=== PATIENT | female | born 1955 | race Caucasian/White ===

== ENCOUNTER 2017-01-13 07:36 | Day surgery (SDC) | payer BC ==
[2017-01-09 10:21] VITALS: BMI 27.8
[~2017-01-13 07:36] MED LIST: FAMOTIDINE 20 MG/2 ML VIAL IV PRN; LACTATED RINGERS 1,000 ML IV SCH; LIDOCAINE 1% 20 ML VIAL (10MG/ML) FOR IV START INTRADERMA PRN; ONDANSETRON 4 MG/2 ML VIAL IVP PRN; SODIUM CHLORIDE 0.9% 500 ML IV ONE
[2017-01-13] MEDS ORDERED: LACTATED RINGERS 1,000 ML IV ONE (07:49)
[2017-01-13 07:53] VITALS: TEMP 98
[2017-01-13] MEDS ORDERED: PROPOFOL 10 MG/ML 20 ML VIAL IV ONE (08:24)
[2017-01-13] MEDS ORDERED: MIDAZOLAM 2 MG/2 ML VIAL ONE (08:24)
[2017-01-13] MEDS ORDERED: fentaNYL (PF) 50 MCG/ML 2 ML AMP ONE (08:24)
--- NOTE | 2017-01-13 08:52 | P.DS ---
Providers Attending physician: Lynn Jerez Primary care physician: Salvador Vo Plan - Discharge Summary New Discharge Prescriptions: No Action Omeprazole 20 mg PO DAILY Gabapentin [Neurontin] 300 mg PO TID Aspirin EC [Ecotrin] 325 mg PO HS Atenolol [Tenormin] 50 mg PO DAILY Discharge Medication List Aspirin EC [Ecotrin] 325 mg PO HS 07/07/16 [History] Atenolol [Tenormin] 50 mg PO DAILY 07/07/16 [History] Gabapentin [Neurontin] 300 mg PO TID 07/07/16 [History] Omeprazole 20 mg PO DAILY 07/07/16 [History] Activity/Diet/Wound Care/Special Instructions: Diverticular diet Discharge Disposition: HOME SELF-CARE
--- NOTE | 2017-01-13 08:52 | P.OP ---
Date of Procedure: 01/13/17 Preoperative Diagnosis: Change in bowel habits Postoperative Diagnosis: Diverticuli, tortuous sigmoid colon, internal hemorrhoids Procedure(s) Performed: Colonoscopy Implants: Anesthesia: MAC Surgeon: Lynn Jerez Estimated Blood Loss (ml): 0 IV fluids (ml): 200 Pathology: none sent Condition: stable Disposition: PACU Indications for Procedure: Change in bowel habits Operative Findings: Sigmoid diverticuli, internal hemorrhoids, tortuous sigmoid colon Description of Procedure: Patient was taken to the endoscopy suite and following sedation rectal exam was performed. Patient was noted to have adequate sphincter tone no masses. Colonoscope was passed through the anus into the rectum. Was passed to the sigmoid colon up to the splenic flexure. Was passed through the transverse colon hepatic flexure right colon down to the area of the cecum. Approximately 6 minutes were taken to withdraw the scope from the cecum to the rectum. Circumferential observation of the mucosa did not reveal any lesions of concern in the cecum or right colon. No lesions of concern in the transverse colon. As the scope was withdrawn patient was noted to have moderate to extensive sigmoid diverticuli. Scope was brought down to the rectum where it was retroflexed internal hemorrhoids identified. Impression/plan: 1. Internal hemorrhoids 2. Diverticuli Plan: 1. Conservative management 2. Repeat scope 7-10 years
[2017-01-13 08:56] VITALS: PULSE 50
[2017-01-13 09:08] VITALS: BP 137/80; RESP 18
== END 2017-01-13 09:34 | disposition home or self-care (01) ==
LOC: ORWHC2ENDO 07:36
PROVIDERS: ATTEND Surgery
DX: K57.30 Diverticulosis of large intestine without perforation or abscess without bleeding (principal); Z80.0 Family history of malignant neoplasm of digestive organs; K64.8 Other hemorrhoids; Q43.8 Other specified congenital malformations of intestine; I10 Essential (primary) hypertension; F17.200 Nicotine dependence, unspecified, uncomplicated; Z79.82 Long term (current) use of aspirin; Z79.899 Other long term (current) drug therapy
CPT/HCPCS: 45378; J2250; J3010; J2704

== ENCOUNTER → 2017-02-06 | Outpatient (CLI) | payer BC ==
--- NOTE | 2017-02-06 15:20 | US ---
EXAMINATION TYPE: US pelvic complete DATE OF EXAM: 02/06/2017 COMPARISON: NONE CLINICAL HISTORY: R10.2 Pelvic pain. rt adnexal pain, prior tubal TECHNIQUE: Transabdominal (TA) EXAM MEASUREMENTS: Uterus: 5.2 x 2.6 x 4.9 cm Endometrial Stripe: 0.3 cm Right Ovary: 3.1 x 1.8 x 2.9 cm Left Ovary: 2.4 x 1.3 x 2.4 cm 1. Uterus: Anteverted wnl 2. Endometrium: wnl 3. Right Ovary: wnl 4. Left Ovary: wnl 5. Bilateral Adnexa: wnl 6. Posterior cul-de-sac: no free fluid seen IMPRESSION: NORMAL PELVIC ULTRASOUND.
== END | disposition home or self-care (01) ==
LOC: RADUSWWP 14:38
PROVIDERS: ATTEND Family Medicine
DX: R10.2 Pelvic and perineal pain (principal)
CPT/HCPCS: 76856

== ENCOUNTER → 2017-08-14 | Outpatient (CLI) | payer BC ==
[2017-08-14 10:51] LABS: HGB 15.8 gm/dL (11.4-16.0); MCH 29.5 pg (25.0-35.0); MCHC 31.5 g/dL (31.0-37.0); MCV 93.4 fL (80.0-100.0); Mean Platelet Volume 8.5; Platelet Count 221 k/uL (150-450); RBC 5.36 m/uL (3.80-5.40); RDW 14.2 % (11.5-15.5); WBC 12.2 k/uL (3.8-10.6)
[2017-08-14 11:01] LABS: ALT 30 U/L (9-52); AST 20 U/L (14-36); Albumin 4.2 g/dL (3.5-5.0); Alkaline Phosphatase 73 U/L (38-126); Anion Gap 8 mmol/L; Blood Urea Nitrogen 24 mg/dL (7-17); Calcium 9.8 mg/dL (8.4-10.2); Carbon Dioxide 30 mmol/L (22-30); Chloride 103 mmol/L (98-107); Cholesterol 234 mg/dL (<200); Glucose 104 mg/dL (74-99); HDL Cholesterol 61 mg/dL (40-60); LDL Cholesterol,Calculated 152 mg/dL (0-99); Sodium 141 mmol/L (137-145); Total Bilirubin 0.8 mg/dL (0.2-1.3); Total Protein 7.1 g/dL (6.3-8.2); Triglycerides 104 mg/dL (<150)
== END | disposition home or self-care (01) ==
LOC: LABWHC1 10:20
PROVIDERS: ATTEND Internal Medicine Clinical Cardiac Electrophysiology
DX: E78.5 Hyperlipidemia, unspecified (principal); I10 Essential (primary) hypertension; I48.91 Unspecified atrial fibrillation
CPT/HCPCS: 36415; 80053; 80061; 84443; 85027

== ENCOUNTER → 2018-05-31 | Outpatient (CLI) | payer BC ==
--- NOTE | 2018-05-31 08:07 | MR ---
EXAMINATION TYPE: MR cervical spine wo con DATE OF EXAM: 05/31/2018 COMPARISON: None HISTORY: Neck pain TECHNIQUE: Multiplanar, multisequence images of the cervical spine were acquired. FINDINGS: Incidental note is made of a partially empty sella turcica that is partially visualized on the sagittal images. There is straightening of the usual cervical lordosis with very mild retrolisthe sis of C5 on C6. Multilevel disc desiccation is seen. Cervical cord maintains a normal signal. Bone m arrow is within normal limits. C2-C3: Small posterior central disc ossify complex without spinal canal stenosis nor neural foraminal narrowing. C3-C4: Disc desiccation and a small central disc osteophyte complex are seen without spinal canal henrietta nosis nor neural foraminal narrowing. Mild uncovertebral hypertrophy is also seen at this level. C4-C5: There is left greater than right uncovertebral hypertrophy creating mild left neural foraminal narrowing as well as a small central disc osteophyte complex narrowing the ventral subarachnoid spac e and impressing upon the ventral thecal cord creating very mild spinal canal stenosis. C5-C6: There is a broad-based disc bulge and mild uncovertebral hypertrophy creating mild spinal toribio l stenosis and mild neural foraminal narrowing. C6-C7: There is a left foraminal disc herniation creating severe left neural foraminal narrowing and impinging on the exiting nerve root with effacement of the left lateral recess. This also creates mil d left-sided spinal canal stenosis. Right neuroforamen is patent. C7-T1: No evidence for degenerative disc disease. No disc bulge/herniation or protrusion. No Canal stenosis. Foramina are patent bilaterally. IMPRESSION: 1. Left foraminal disc herniation at C6-C7 creating severe left neural foraminal narrowing and mild l eft-sided spinal canal stenosis. 2. Straightening of the usual cervical lordosis and multilevel degenerative disc disease of the cervi ramona spine greatest at C4-C7.
== END | disposition home or self-care (01) ==
LOC: RADMRIMAIN 06:31
PROVIDERS: ATTEND Internal Medicine Rheumatology
DX: M48.02 Spinal stenosis, cervical region (principal); M99.71 Connective tissue and disc stenosis of intervertebral foramina of cervical region; M50.121 Cervical disc disorder at C4-C5 level with radiculopathy
CPT/HCPCS: 72141

== ENCOUNTER → 2018-07-28 | Outpatient (CLI) | payer BC ==
--- NOTE | 2018-07-30 09:31 | MM ---
Reason for exam: screening (asymptomatic). Last mammogram was performed 2 years and 6 months ago. History: Patient is postmenopausal. Took estrogen for 3 months. Took progesterone for 3 months. Physical Findings: A clinical breast exam by your physician is recommended on an annual basis and results should be correlated with mammographic findings. MG Screening Mammo w CAD Bilateral CC and MLO view(s) were taken. Prior study comparison: January 14, 2016, bilateral MG screening mammo w CAD. November 06, 2014, bilateral MG screening mammo w CAD. There are scattered fibroglandular densities. No significant changes when compared with prior studies. ASSESSMENT: Negative, BI-RAD 1 RECOMMENDATION: Routine screening mammogram of both breasts in 1 year.
== END ==
LOC: RADMAMWWP 09:01
PROVIDERS: ATTEND Obstetrics & Gynecology
DX: Z12.31 Encounter for screening mammogram for malignant neoplasm of breast (principal)
CPT/HCPCS: 77067

== ENCOUNTER → 2018-10-26 | Outpatient (CLI) | payer OTHER ==
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
== END | disposition home or self-care (01) ==
LOC: RADCTMAIN 15:17
PROVIDERS: ATTEND Emergency Medicine
DX: S00.83XA Contusion of other part of head, initial encounter (principal); G44.321 Chronic post-traumatic headache, intractable
CPT/HCPCS: 70450; 70486

== ENCOUNTER → 2018-10-27 | Outpatient (CLI) | payer OTHER ==
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
== END | disposition home or self-care (01) ==
LOC: RADMRIMAIN 15:06
PROVIDERS: ATTEND Emergency Medicine
DX: S00.83XA Contusion of other part of head, initial encounter (principal); R90.89 Other abnormal findings on diagnostic imaging of central nervous system; G31.1 Senile degeneration of brain, not elsewhere classified; G44.321 Chronic post-traumatic headache, intractable
CPT/HCPCS: 70551

== ENCOUNTER 2018-10-28 11:51 | Emergency (ER) | payer OTHER ==
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
[2018-10-28 15:08] VITALS: BP 120/77; PULSE 64; RESP 16; TEMP 98.1
== END 2018-10-28 15:07 | disposition home or self-care (01) ==
LOC: EC 11:51
DX: S06.0X0A Concussion without loss of consciousness, initial encounter (principal); G93.89 Other specified disorders of brain; I10 Essential (primary) hypertension; F17.200 Nicotine dependence, unspecified, uncomplicated; Z79.01 Long term (current) use of anticoagulants; Z79.899 Other long term (current) drug therapy; Y04.8XXA Assault by other bodily force, initial encounter; Y92.69 Other specified industrial and construction area as the place of occurrence of the external cause; Y99.0 Civilian activity done for income or pay
CPT/HCPCS: 70450; 99284

== ENCOUNTER → 2019-02-16 | Outpatient (CLI) | payer BC, OTHER ==
--- NOTE | 2019-02-16 20:56 | CONS ---
CONSULTATION DATE OF SERVICE: 02/16/2019 This patient is a 63-year-old lady who has been evaluated in the sleep center for possible obstructive sleep apnea-hypopnea syndrome. HISTORY OF PRESENT ILLNESS/SLEEP-WAKE EVALUATION: Patient was diagnosed with obstructive sleep apnea about 15 years ago in another institution and was started on treatment with CPAP, but she had difficulties with CPAP and had to stop it. At present her sleep schedule on working days is from 10 p.m. to 6:45 a.m., on weekends from midnight until 9 a.m. Sometimes she has problem with falling asleep. She reads in bedroom and sleeps on the side position. She snores, wakes up from sleep 3 times with nocturia, sometimes has difficulties falling asleep again. In the morning the patient wakes up tired, has difficulties paying attention, falling asleep, worrying about her sleep, has problems with memory and concentration. She is taking one nap a day, usually from about 1-3 p.m. [place] Sleepiness Scale is significantly increased at 16. PAST MEDICAL HISTORY: Positive for hypertension, atrial fibrillation. PAST SURGICAL HISTORY: 1. Tonsillectomy. 2. Cholecystectomy. 3. Tubal ligation. MEDICATIONS: 1. Atenolol. 2. Omeprazole. 3. Citalopram. 4. Losartan. 5. Eliquis. 6. Gabapentin. SOCIAL HISTORY: Positive for smoking about half pack a day for 20 years. Patient continues smoking. Alcohol consumption: none. FAMILY HISTORY: Heart problems, cancer and diabetes. REVIEW OF SYSTEMS: Multiple awakenings from sleep, sleepiness during the day. PHYSICAL EXAMINATION: GENERAL: A pleasant lady without distress. VITAL SIGNS: BP 127/80, HR 62, RR 18, height 5 feet 3 inches, weight 181 pounds, body mass index 32.0, temperature 98.4, oxygen saturation at room air 97%. HEENT: PERRLA, EOMI. Evaluation of oropharynx showed tongue protrudes midline. Extremely low position of soft palate. Mallampati IV. Restriction of nasal breathing, more on the left side. NECK: Supple. No JVD. Thyroid is not palpable. Neck measures 15-1/2 inches in circumference. LUNGS: Clear to percussion and to auscultation. Good air exchange. No wheezing or rhonchi. HEART: S1, S2 regular. No murmurs, gallops or rubs. ABDOMEN: Soft and nontender. Bowel sounds are present. No organomegaly. EXTREMITIES: No clubbing or cyanosis. SUPERVISOR LATHING: Awake, alert, and oriented X3. Cranial nerves 2 to 7 intact. There is no fasciculation or atrophy. noted. No focal deficits observed. IMPRESSION: 1. Snoring, multiple awakenings from sleep with nocturia, sleepiness, obesity, history of obstructive sleep apnea in the past; obstructive sleep apnea-hypopnea syndrome. 2. Mild obesity; body mass index 32.0. 3. Hypertension. 4. History of atrial fibrillation. 5. Status post tonsillectomy. 6. Status post cholecystectomy. 7. Status post tubal ligation. PLAN: 1. Polysomnography for evaluation of patient's breathing during sleep. 2. CPAP/BiPAP titration if sleep study confirms obstructive sleep apnea-hypopnea syndrome. 3. Preferable position during sleep on the side. 4. No driving if patient feels any sleepiness. 5. I will see patient for follow up visit to explain results of testing and following plan. Thank you very much for referring this patient for consultation. Sincerely, Refugio Mckay MD, PhD, FAASM Diplomat of [employer] [employer] [employer] Cargo Services Coordinator of [facility] [place] [email or web address] / VANGIEN: [id number] /
== END | disposition home or self-care (01) ==
LOC: SLEEP 14:39
PROVIDERS: ATTEND Internal Medicine
DX: G47.33 Obstructive sleep apnea (adult) (pediatric) (principal); E66.9 Obesity, unspecified; I10 Essential (primary) hypertension; I48.91 Unspecified atrial fibrillation; F17.210 Nicotine dependence, cigarettes, uncomplicated; Z68.32 Body mass index [BMI] 32.0-32.9, adult; Z90.09 Acquired absence of other part of head and neck; Z90.49 Acquired absence of other specified parts of digestive tract; Z98.51 Tubal ligation status; Z79.01 Long term (current) use of anticoagulants; Z79.899 Other long term (current) drug therapy
CPT/HCPCS: 99211

== ENCOUNTER → 2019-05-04 | Outpatient (CLI) | payer BC ==
--- NOTE | 2019-05-04 14:38 | PN ---
PROGRESS NOTE DATE OF SERVICE: 05/04/2019 A 63-year-old lady who has been followed in the Sleep Center for treatment of obstructive sleep apnea-hypopnea syndrome. Recently patient had home sleep apnea test which showed apnea-hypopnea index 10.6 with oxygen desaturation to 79%, and I discussed results of the sleep study with the patient. Subsequently, she was started on treatment with CPAP, today is her first visit after she started using CPAP equipment. Patient feels better with the CPAP. She sleeps better and feel better during the day. [place] Sleepiness Scale today although still increased to 16. I checked her CPAP unit, range of the pressure 5-15, average pressure of 14.3 cm of water. Usage is 30/30 nights for more than 4 hours with average usage 6.8 hours per night. Leak is 8 L/minute, which is acceptable. Apnea-hypopnea index is 2.5, which is in normal range. MEDICATIONS: Atenolol, omeprazole, citalopram, losartan, Eliquis, gabapentin. PHYSICAL EXAM: Patient in no distress, BP 127/76, HR 60, RR 16, weight 185.0, temperature 98.8, oxygen saturation at room air 97%. OROPHARYNX: Low position to soft palate, Mallampati 4. Neck Supple, no JVD. Thyroid is not palpable. LUNGS Clear to percussion and to auscultation. Good air exchange. No wheezing or rhonchi. HEART S1, S2 regular. No murmurs, gallops, or rubs. ABDOMEN Soft and nontender. Bowel sounds are present. No organomegaly appreciated. EXTREMITIES No clubbing or cyanosis. SENIOR INTEGRATION ARCHITECT Awake, alert, and oriented X3. Cranial nerves 2 to 7 intact. There is no fasciculation or atrophy. noted. No focal deficits observed. IMPRESSION: 1. Obstructive sleep apnea-hypopnea syndrome on control with CPAP. Patient demonstrated 100% compliance with treatment, benefitting from treatment. 2. Hypertension. 3. History of atrial fibrillation. 4. Mild obesity. 5. Status post tonsillectomy. 6. Status post cholecystectomy. 7. Status post tubal ligation. PLAN: 1. Patient will continue to use CPAP equipment every night for the whole night. 2. Sleep hygiene with time in bed for at least 7-1/2 to 8 hours. 3. Precautions related to driving. No driving if any sleepiness. 4. I will maintain all necessary prescriptions for CPAP supplies including mask, tube, filters. Thank you very much for allowing me to participate in the management of your patient. Sincerely, Refugio Mckay MD, PhD, FAASM Diplomat of [place] [employer] [place] [employer] Tail Board Worker of [facility] [place] [email or web address] / STUART: [id number] /
== END | disposition home or self-care (01) ==
LOC: SLEEP 13:05
PROVIDERS: ATTEND Internal Medicine
DX: G47.33 Obstructive sleep apnea (adult) (pediatric) (principal); I10 Essential (primary) hypertension; E66.9 Obesity, unspecified; Z86.79 Personal history of other diseases of the circulatory system; Z98.51 Tubal ligation status; Z90.49 Acquired absence of other specified parts of digestive tract; Z90.89 Acquired absence of other organs; Z99.89 Dependence on other enabling machines and devices; Z79.01 Long term (current) use of anticoagulants; Z79.899 Other long term (current) drug therapy

== ENCOUNTER → 2019-08-19 | Outpatient (CLI) | payer BC ==
--- NOTE | 2019-08-19 15:36 | US ---
EXAMINATION TYPE: US kidneys/renal and bladder DATE OF EXAM: 08/19/2019 COMPARISON: NONE CLINICAL HISTORY: N39.0 urinary tract infection. UTI EXAM MEASUREMENTS: Right Kidney: 9.8 x 4.5 x 40. cm Left Kidney: 10.7 x 5.7 x 3.7 cm Right Kidney: No hydronephrosis or masses seen Left Kidney: No hydronephrosis or masses seen Bladder: Very minimal internal debris Bilateral Jets seen: No just left jet. There is no evidence for hydronephrosis at this point in time. No nephrolithiasis is seen. No shorty s are identified. IMPRESSION: 1. Minimal internal debris dependently within the urinary bladder, likely related to the patient's kn own urinary tract infection. 2. No hydronephrosis or nephrolithiasis of either kidney
== END | disposition home or self-care (01) ==
LOC: RADUSWWP 14:55
PROVIDERS: ATTEND Family Medicine
DX: N39.0 Urinary tract infection, site not specified (principal)
CPT/HCPCS: 76770

== ENCOUNTER → 2020-02-24 | Outpatient (CLI) | payer BC ==
--- NOTE | 2020-02-24 13:22 | US ---
EXAMINATION TYPE: US kidneys/renal and bladder DATE OF EXAM: 02/24/2020 COMPARISON: NONE CLINICAL HISTORY: 64-year-old female N39.0 Urinary tract infection, site not specified. Recurrent UTI TECHNIQUE: Multiple sonographic images of the kidneys and bladder are obtained. FINDINGS: EXAM MEASUREMENTS: Right Kidney: 10.4 x 4.7 x 4.4 cm Left Kidney: 10.3 x 5.5 x 5.0 cm Right Kidney: cystic area mid = 0.9cm . No hydronephrosis. Left Kidney: no evidence of hydronephrosis Bladder: appears wnl Bilateral Jets seen: yes IMPRESSION: No hydronephrosis on either side. Benign 9 mm cortical cyst on the right.
== END | disposition home or self-care (01) ==
LOC: RADUSWWP 12:21
PROVIDERS: ATTEND Urology
DX: N28.1 Cyst of kidney, acquired (principal)
CPT/HCPCS: 76770

== ENCOUNTER → 2020-05-09 | Outpatient (CLI) | payer BC ==
--- NOTE | 2020-05-10 09:20 | MM ---
Reason for exam: screening (asymptomatic). Last mammogram was performed 1 year and 9 months ago. History: Patient is postmenopausal. Took estrogen for 3 months. Took progesterone for 3 months. Physical Findings: A clinical breast exam by your physician is recommended on an annual basis and results should be correlated with mammographic findings. MG 3D Screening Mammo W/Cad Bilateral CC and MLO view(s) were taken. Prior study comparison: July 28, 2018, bilateral MG screening mammo w CAD. January 14, 2016, bilateral MG screening mammo w CAD. The breast tissue is heterogeneously dense. This may lower the sensitivity of mammography. There are benign appearing round calcifications bilaterally. Asymmetric breast tissue left breast, stable, anterior aspect. There is no discrete abnormality. ASSESSMENT: Negative, BI-RAD 1 RECOMMENDATION: Routine screening mammogram of both breasts in 1 year.
== END | disposition home or self-care (01) ==
LOC: RADMAMWWP 10:11
PROVIDERS: ATTEND Obstetrics & Gynecology
DX: Z12.31 Encounter for screening mammogram for malignant neoplasm of breast (principal)
CPT/HCPCS: 77063; 77067

== ENCOUNTER → 2020-09-27 | Outpatient (CLI) | payer BC ==
[2020-09-27 09:56] LABS: HCT 40.9 % (34.0-46.0); HGB 13.7 gm/dL (11.4-16.0); MCH 29.7 pg (25.0-35.0); MCHC 33.6 g/dL (31.0-37.0); MCV 88.5 fL (80.0-100.0); Mean Platelet Volume 8.8; Platelet Count 173 k/uL (150-450); RBC 4.62 m/uL (3.80-5.40); RDW 12.7 % (11.5-15.5); WBC 7.2 k/uL (3.8-10.6)
[2020-09-27 10:07] LABS: Appearance,Urine Clear (Clear); Bacteria,Urine Rare /hpf; Bilirubin,Urine Negative (Negative); Blood,Urine Trace (Negative); Color,Urine Yellow; Glucose,Urine (UA) Negative (Negative); Ketones,Urine Negative (Negative); Leukocyte Esterase,Urine Moderate (Negative); Mucus,Urine Rare /hpf; Nitrite,Urine Negative (Negative); PH, Urine 5.5 (5.0-8.0); Protein,Urine Negative (Negative); RBC,Urine 2 /hpf (0-5); Specific Gravity,Urine 1.015 (1.001-1.035); Squamous Epithelial Cell,Urine 3 /hpf (0-4); Urobilinogen,Urine <2.0 mg/dL (<2.0); WBC,Urine 19 /hpf (0-5)
[2020-09-27 10:09] LABS: Calcium 9.3 mg/dL (8.4-10.2); Magnesium 1.8 mg/dL (1.6-2.3); Potassium 4.2 mmol/L (3.5-5.1); Total Bilirubin 0.7 mg/dL (0.2-1.3); Total Protein 6.4 g/dL (6.3-8.2)
[2020-09-27 10:21] LABS: Partial Thromboplastin Time 26.8 sec (22.0-30.0); Prothrombin Time 10.9 sec (9.0-12.0)
--- NOTE | 2020-09-27 10:53 | P.PN ---
Progress Note - Text Progress Note Date: 09/27/20 5 meter walk test completed without incident: #1 3.96 sec #2 4.3 sec #3 3.33 sec
[2020-09-27 12:07] LABS: T4, Free (Free Thyroxine) 0.59 ng/dL (0.78-2.19)
--- NOTE | 2020-09-27 13:05 | XR ---
EXAMINATION TYPE: XR chest 2V DATE OF EXAM: 09/27/2020 COMPARISON: NONE TECHNIQUE: PA and lateral views submitted. HISTORY: Postop FINDINGS: The lungs are clear and there is no pneumothorax, pleural effusion, or focal pneumonia. Heart size normal. No overt failure. IMPRESSION: 1. No acute process.
[2020-09-28 00:32] LABS: Hepatitis B Core IgM Non-Reactive (Non-Reactive); Hepatitis B Surface Antigen Non-Reactive (Non-Reactive); Hepatitis C IgG Antibody Non-Reactive (Non-Reactive)
[2020-09-28 01:14] LABS: Hepatitis A Antibody IgM Non-Reactive (Non-Reactive)
--- NOTE | 2020-10-03 10:30 | P.ARTDOP ---
Arterial Doppler LOWER EXTREMITY ARTERIAL DOPPLER: DATE OF SERVICE: 09/27/2020 Reason for study: Preop CABG. Doppler waveforms: Multiphasic bilaterally throughout. Pulse volume recording: []. Pressure gradients: None. Ankle-brachial indices: Greater than 1 bilaterally. Toe brachial indices: To waveforms show flat line. I am doubtful as to this waveform being accurate. Impression: Suspect normal study..
--- NOTE | 2020-10-03 10:35 | P.ARTDOP ---
Arterial Doppler Bilateral radial artery study. Date of study: 09/27/2020 Reason for study: Preop CABG Findings: Doppler assessment shows no significant right to left or segmental pressure gradient. Digital plethysmography with radial artery compression suggests a significant pressure change of 41 mmHg with the left first digit but none on the second digit. No significant changes on the right. The right radial measures proximally2.3 x 1.6 mm, mid 1.9 x 1.3 mm, distally 2.8 x 2.1 mm. Proximally1.7 by 1.9 mm, mid 1.9 x 1.8 mm, distally 2.0 x 1.3 mm. Impression: Both radials have some measurement suggesting that they are bit small for use as conduit. The left radial also has a marginal but significant pressure gradient with radial artery compression. Clinical correlation recommended, but alternate conduit would be considered if available.
--- NOTE | 2020-10-03 10:37 | P.VSCSTY ---
Greater Saphenous Vein Mapping This is bilateral lower extremity greater saphenous vein mapping. Date of service: 09/28/2020 Vein quality and ultrasound appearance: We see no intraluminal thrombus or significant wall changes. Vein size groin right : 6.7 x 4.3 groin left: 8.4 x 8.5 High thigh right: 4.5 x 4.3 high thigh left: 3.5 x 3.9 Mid thigh right: 3.6 x 2.7 mid thigh left: 3.6 x 3.6 Above-knee right: 2.5 x 2.3 above-knee left: 3.4 x 2.4 Below knee right: 4.3 x 2.0 below-knee left: 4.3 x 2.6 Mid calf right: 3.5 x 2.0 mid calf left: 3.5 x 2.9 Ankle right: 2.9 x 2.0 ankle left: 3.0 x 2.3 Impression: Usable bilateral greater saphenous vein is suggested..
== END | disposition home or self-care (01) ==
LOC: LABPAT 08:21
PROVIDERS: ATTEND Thoracic Surgery (Cardiothoracic Vascular Surgery)
DX: U07.1 COVID-19 (principal); Z20.822 Contact with and (suspected) exposure to COVID-19
CPT/HCPCS: 84439; 80061; 80053; 80074; 84443; 83735; 85027; 85610; 85730; 81001; 87070; 87086; 83036; 71046; 93930; 93922; 93005; 36415; U0003; C9803; U0005; 93923; 93970

== ENCOUNTER 2020-10-04 05:38 | Inpatient (IN) | payer BC ==
[~2020-10-04 05:38] MED LIST changes: +ALBUMIN HUMAN 25% 50 ML IV ONE; +ALBUMIN HUMAN 5% 500 ML IVPB ONE; +ASPIRIN 325 MG TAB PO ONE; +ATORVASTATIN 10 MG TAB PO ONE; +CALCIUM CHLORIDE 100 MG/ML 10 ML SYRINGE IV ONE; +CARDIOPLEGIC SOLN (K+ 16 MEQ/L 1,000 ML with SODIUM BICARB (1 MEQ/ML) 20 ML, LIDOCAINE ... PERFUSION ONE; +CHLORHEXIDINE GLUCONATE 15 ML CUP MUCOUS MEM ONE; +CLEVIDIPINE BUTYRATE 25 MG in EMPTY BAG 1 BAG IV ONE; +DILTIAZEM 125 MG in SODIUM CHLORIDE 0.9% 100 ML IV ONE; -FAMOTIDINE 20 MG/2 ML VIAL IV PRN; +HEPARIN SODIUM 1,000 UN/ML (10ML VL) IV ONE; +HEPARIN SODIUM,PORCINE 5,000 UNIT in SODIUM CHLORIDE 0.9% 500 ML 500 ML IV ONE; +INSULIN REGULAR 100 UNIT in SODIUM CHLORIDE 0.9% 100 ML IV ONE; +LACTATED RINGERS 1,000 ML IV ONE; -LACTATED RINGERS 1,000 ML IV SCH; -LIDOCAINE 1% 20 ML VIAL (10MG/ML) FOR IV START INTRADERMA PRN; +MAGNESIUM SULFATE MG 500 MG/ML IV ONE; +MANNITOL 25% 12.5 GM/50 ML VIAL IV ONE; +METOPROLOL TARTRATE 12.5 MG TAB PO ONE; +NITROGLYCERIN SL TABS 0.4 MG TAB SUBLINGUAL ONE; +NITROGLYCERIN-D5W PMX 25 MG/250 ML BTL IV ONE; +NITROGLYCERIN-D5W PMX 50 MG in DEXTROSE/WATER 1 250ML.BAG IV ONE; +NOREPINEPHRINE 4 MG in SODIUM CHLORIDE 0.9% 250 ML IV ONE; -ONDANSETRON 4 MG/2 ML VIAL IVP PRN; +PHENYLEPHRINE 10 MG/ML VIAL IV ONE; +PHENYLEPHRINE 40 MG in SODIUM CHLORIDE 0.9% 250 ML IV ONE; +PROTAMINE SULFATE 10 MG/ML 25 ML VIAL IV ONE; +PROTAMINE SULFATE 250 MG in EMPTY BAG 1 BAG IV ONE; +SODIUM BICARB 8.4% 50 ML SYR (1 MEQ/ML) IV ONE; +SODIUM CHLORIDE 0.9% 1,000 ML IV ONE; -SODIUM CHLORIDE 0.9% 500 ML IV ONE; +TRANEXAMIC ACID 2,000 MG in SODIUM CHLORIDE 0.9% 80 ML IV ONE; +ceFAZolin 1,000 MG in SODIUM CHLORIDE 0.9% IRRIGATIO 1,000 ML IRRIGATION ONE; +propofoL 1,000 MG/100 ML VIAL IV ONE
[2020-10-04 06:08] LABS: Glucose,Whole Blood 115 mg/dL (75-99)
[2020-10-04] MEDS ORDERED: LIDOCAINE 1% (10MG/ML) FOR IV START INTRADERMA PRN (07:00)
[2020-10-04] MEDS ORDERED: LACTATED RINGERS 1,000 ML IV SCH (07:00)
[2020-10-04] MEDS ORDERED: HYDROmorphone 0.5 MG/0.5 ML SYRINGE IVP PRN (07:00)
[2020-10-04] MEDS ORDERED: fentaNYL (PF) 50 MCG/ML 50 ML VIAL ONE (07:42)
[2020-10-04] MEDS ORDERED: CALCIUM CHLORIDE 100 MG/ML 10 ML SYRINGE ONE (07:42)
[2020-10-04] MEDS ORDERED: NITROGLYCERIN-D5W PMX 50 MG/250 ML BOTTLE IV ONE (07:42)
[2020-10-04] MEDS ORDERED: ALBUMIN HUMAN 5% (12.5gm) 250 ML BOTTLE IVPB ONE (07:42)
[2020-10-04] MEDS ORDERED: PROPOFOL 10 MG/ML 20 ML VIAL IV ONE (07:42)
[2020-10-04] MEDS ORDERED: HEPARIN SODIUM,PORCINE 10,000 UNIT/ML 1 ML VIAL ONE (07:42)
[2020-10-04] MEDS ORDERED: POTASSIUM CHLORIDE OPEN HEART 20 MEQ/50 ML BAG IVPB ONE (07:42)
[2020-10-04] MEDS ORDERED: AMIODARONE 50 MG/ML 3 ML VIAL IV ONE (07:42)
[2020-10-04] MEDS ORDERED: MIDAZOLAM 2 MG/2 ML VIAL ONE (07:42)
[2020-10-04] MEDS ORDERED: SODIUM CHLORIDE 0.9% 100 ML BAG ONE (07:42)
[2020-10-04] MEDS ORDERED: SODIUM CHLORIDE 0.9% IRRIG 1,000 ML BTL IRRIGATION ONE (07:42)
[2020-10-04] MEDS ORDERED: fentaNYL (PF) 50 MCG/ML 2 ML AMP ONE (07:42)
[2020-10-04] MEDS ORDERED: INSULIN REGULAR 100 UNIT/ML VIAL ONE (07:42)
[2020-10-04] MEDS ORDERED: VECURONIUM 10 MG VIAL IV ONE (07:42)
[2020-10-04] MEDS ORDERED: ceFAZolin 1,000 MG VIAL ONE (07:42)
[2020-10-04] MEDS ORDERED: SUCCINYLCHOLINE CHLORIDE 100 MG/5 ML SYR IV ONE (07:42)
[2020-10-04] MEDS ORDERED: PROTAMINE SULFATE 10 MG/ML 5 ML VIAL IV ONE (07:42)
[2020-10-04] MEDS ORDERED: PAPAVERINE 30 MG/ML 2 ML VIAL IV STA (08:11)
[2020-10-04] MEDS ORDERED: PAPAVERINE 360 MG in SODIUM CHLORIDE 0.9% 90 ML IV STA (08:15)
[2020-10-04 08:38] LABS: ABG Glucose Whole Blood 126 mg/dL (75-99); ABG HCO3 25 mmol/L (21-25); ABG Hematocrit 38 % (34.0-46.0); ABG Ionized Calcium 4.5 mg/dL (4.5-5.3); ABG Lactic Acid Whole Blood 0.9 mmol/L (0.5-1.6); ABG Oxygen Saturation 99.7 % (94-97); ABG PCO2 45 mmHg (35-45); ABG PH 7.35 (7.35-7.45); ABG PO2 211 mmHg (83-108); ABG Potassium Whole Blood 4.4 mmol/L (3.4-4.5); ABG Sodium Whole Blood 138 mmol/L (135-146); ABG TCO2 26 mmol/L (19-24)
[2020-10-04 09:54] LABS: ABG Base Excess -1.1 mmol/L; ABG Glucose Whole Blood 134 mg/dL (75-99); ABG HCO3 24 mmol/L (21-25); ABG Hematocrit 35 % (34.0-46.0); ABG Ionized Calcium 4.5 mg/dL (4.5-5.3); ABG Lactic Acid Whole Blood 1.2 mmol/L (0.5-1.6); ABG Oxygen Saturation 99.7 % (94-97); ABG PCO2 42 mmHg (35-45); ABG PH 7.37 (7.35-7.45); ABG PO2 201 mmHg (83-108); ABG Potassium Whole Blood 4.2 mmol/L (3.4-4.5); ABG Sodium Whole Blood 138 mmol/L (135-146); ABG TCO2 26 mmol/L (19-24)
[2020-10-04 10:33] LABS: ABG Base Excess 0.1 mmol/L; ABG Glucose Whole Blood 145 mg/dL (75-99); ABG HCO3 25 mmol/L (21-25); ABG Hematocrit 36 % (34.0-46.0); ABG Ionized Calcium 4.5 mg/dL (4.5-5.3); ABG Lactic Acid Whole Blood 0.9 mmol/L (0.5-1.6); ABG Oxygen Saturation 99.8 % (94-97); ABG PCO2 39 mmHg (35-45); ABG PH 7.41 (7.35-7.45); ABG PO2 202 mmHg (83-108); ABG Sodium Whole Blood 138 mmol/L (135-146); ABG TCO2 26 mmol/L (19-24)
[2020-10-04 11:20] LABS: ABG Base Excess -0.7 mmol/L; ABG Glucose Whole Blood 159 mg/dL (75-99); ABG HCO3 24 mmol/L (21-25); ABG Hematocrit 36 % (34.0-46.0); ABG Ionized Calcium 4.4 mg/dL (4.5-5.3); ABG Lactic Acid Whole Blood 0.7 mmol/L (0.5-1.6); ABG Oxygen Saturation 99.7 % (94-97); ABG PCO2 40 mmHg (35-45); ABG PH 7.39 (7.35-7.45); ABG PO2 173 mmHg (83-108); ABG Potassium Whole Blood 3.8 mmol/L (3.4-4.5); ABG Sodium Whole Blood 138 mmol/L (135-146); ABG TCO2 25 mmol/L (19-24)
[2020-10-04 11:54] LABS: ABG Base Excess -1.9 mmol/L; ABG Glucose Whole Blood 164 mg/dL (75-99); ABG HCO3 24 mmol/L (21-25); ABG Hematocrit 35 % (34.0-46.0); ABG Ionized Calcium 4.4 mg/dL (4.5-5.3); ABG Oxygen Saturation 99.8 % (94-97); ABG PCO2 42 mmHg (35-45); ABG PH 7.36 (7.35-7.45); ABG PO2 175 mmHg (83-108); ABG Potassium Whole Blood 3.9 mmol/L (3.4-4.5); ABG Sodium Whole Blood 137 mmol/L (135-146); ABG TCO2 25 mmol/L (19-24)
[2020-10-04] MEDS ORDERED: METOCLOPRAMIDE 5 MG/ML 2 ML VIAL IVP PRN (12:57)
[2020-10-04] MEDS ORDERED: ONDANSETRON 4 MG/2 ML VIAL IVP PRN (12:57)
[2020-10-04] MEDS ORDERED: ALBUMIN HUMAN 5% 250 ML in EMPTY BAG 1 BAG IVPB PRN (12:57)
[2020-10-04] MEDS ORDERED: AMIODARONE 450 MG in DEXTROSE 5% IN WATER 250 ML IV PRN ×2 (12:57)
[2020-10-04] MEDS ORDERED: Phosphorus Replacement Protoco 1 EACH MISC MISCELLANE PRN (12:57)
[2020-10-04] MEDS ORDERED: DEXTROSE 5% IN WATER 100 ML with AMIODARONE 150 MG IV PRN (12:57)
[2020-10-04] MEDS ORDERED: Magnesium Replacement Protocol 1 EACH MISC MISCELLANE PRN (12:57)
[2020-10-04] MEDS ORDERED: BENZOCAINE/MENTHOL LOZENG 1 EACH LOZENGE MUCOUS MEM PRN (12:57)
[2020-10-04] MEDS ORDERED: NITROGLYCERIN-D5W PMX 50 MG in DEXTROSE/WATER 1 250ML.BAG IV SCH (12:57)
[2020-10-04] MEDS ORDERED: CALCIUM GLUCONATE 2 GM in SODIUM CHLORIDE 0.9% 100 ML IVPB PRN (12:57)
[2020-10-04] MEDS ORDERED: IPRATROPIUM-ALBUTEROL 3 ML NEB INHALATION PRN (12:57)
[2020-10-04] MEDS ORDERED: Potassium Replacement Protocol 1 EACH MISC MISCELLANE PRN (12:57)
[2020-10-04] MEDS ORDERED: AMIODARONE 360 MG in DEXTROSE 5% IN WATER 200 ML IV PRN ×2 (12:57)
[2020-10-04 13:45] LABS: Glucose,Whole Blood 146 mg/dL (75-99)
--- NOTE | 2020-10-04 13:57 | XR ---
EXAMINATION TYPE: XR chest 1V portable DATE OF EXAM: 10/04/2020 COMPARISON: Chest x-ray 09/27/2020 HISTORY: Postop cardiac surgery, chest tube, intubated TECHNIQUE: Single frontal view of the chest is obtained. FINDINGS: Endotracheal tube and NG tube are overlying appropriate positions, there is a median gutiérrez al drain, left sided chest tube in place. No evident pneumothorax or pleural effusion. Lung volumes a re low. Cardiac mediastinal silhouette appears somewhat prominent as compared to prior exam although patient is rotated. Some left lung atelectatic changes are present greater than at the right lung bas e. Aorta is dense. There is overlying artifact. Subcutaneous emphysema limited to the left chest. Milnea gical clips present right upper quadrant and left upper quadrant. IMPRESSION: Satisfactory postoperative chest x-ray.
[2020-10-04 14:06] LABS: Glucose,Whole Blood 143 mg/dL (75-99)
[2020-10-04 14:06] LABS: Basophils % (A) 0 %; Eosinophils # (A) 0.1 k/uL (0-0.7); Eosinophils % (A) 1 %; HCT 33.3 % (34.0-46.0); HGB 11.6 gm/dL (11.4-16.0); Lymphocytes # (A) 1.4 k/uL (1.0-4.8); Lymphocytes % (A) 11 %; MCH 30.1 pg (25.0-35.0); MCHC 34.8 g/dL (31.0-37.0); MCV 86.4 fL (80.0-100.0); Mean Platelet Volume 9.1; Monocytes # (A) 0.5 k/uL (0-1.0); Monocytes % (A) 4 %; Neutrophils # (A) 10.3 k/uL (1.3-7.7); Neutrophils % (A) 83 %; Platelet Count 134 k/uL (150-450); RBC 3.85 m/uL (3.80-5.40); RDW 12.5 % (11.5-15.5); WBC 12.4 k/uL (3.8-10.6)
[2020-10-04 14:11] LABS: ABG Base Excess -2.5 mmol/L; ABG HCO3 24 mmol/L (21-25); ABG Oxygen Saturation 99.9 % (94-97); ABG PCO2 51 mmHg (35-45); ABG PH 7.28 (7.35-7.45); ABG PO2 169 mmHg (83-108); ABG TCO2 26 mmol/L (19-24)
[2020-10-04 14:12] LABS: Ionized Calcium 5.4 mg/dL (4.5-5.3)
[2020-10-04] MEDS: DILTIAZEM 125 MG in SODIUM CHLORIDE 0.9% 100 ML IV SCH ×2 (14:12→23:13)
[2020-10-04 14:13] LABS: Allen Test Performed? NO
[2020-10-04] MEDS: LACTATED RINGERS 1,000 ML IV SCH (14:13)
[2020-10-04] MEDS: ACETAMINOPHEN IV (For NPO) 1,000 MG in EMPTY BAG 1 BAG IVPB SCH ×2 (14:17→20:38)
[2020-10-04 14:21] LABS: INR 1.1 (<1.2); Partial Thromboplastin Time 24.7 sec (22.0-30.0); Prothrombin Time 11.2 sec (9.0-12.0)
[2020-10-04 14:24] LABS: ALT 128 U/L (4-34); AST 256 U/L (14-36); African American GFR (CKD) >90 (>60 ml/min/1.73 sqM); Albumin 2.6 g/dL (3.5-5.0); Alkaline Phosphatase 72 U/L (38-126); Anion Gap 4 mmol/L; Blood Urea Nitrogen 17 mg/dL (7-17); Calcium 8.3 mg/dL (8.4-10.2); Carbon Dioxide 24 mmol/L (22-30); Chloride 107 mmol/L (98-107); Glucose 142 mg/dL (74-99); Magnesium 1.4 mg/dL (1.6-2.3); Non-African American GFR(CKD) 85 (>60 ml/min/1.73 sqM); Sodium 135 mmol/L (137-145); Total Bilirubin 1.3 mg/dL (0.2-1.3); Total Protein 4.5 g/dL (6.3-8.2)
[2020-10-04] MEDS: INSULIN REGULAR 100 UNIT in SODIUM CHLORIDE 0.9% 100 ML IV SCH (14:48)
[2020-10-04 15:09] LABS: Glucose,Whole Blood 142 mg/dL (75-99)
[2020-10-04 15:22] LABS: Basophils % (A) 0 %; Eosinophils # (A) 0.1 k/uL (0-0.7); Eosinophils % (A) 1 %; HCT 34.9 % (34.0-46.0); HGB 11.9 gm/dL (11.4-16.0); Lymphocytes # (A) 1.1 k/uL (1.0-4.8); Lymphocytes % (A) 10 %; MCH 29.5 pg (25.0-35.0); MCHC 34.1 g/dL (31.0-37.0); MCV 86.3 fL (80.0-100.0); Mean Platelet Volume 8.9; Monocytes # (A) 0.4 k/uL (0-1.0); Monocytes % (A) 4 %; Neutrophils # (A) 9.4 k/uL (1.3-7.7); Neutrophils % (A) 85 %; Platelet Count 144 k/uL (150-450); RBC 4.04 m/uL (3.80-5.40); RDW 12.7 % (11.5-15.5); WBC 11.1 k/uL (3.8-10.6)
[2020-10-04] MEDS: IPRATROPIUM-ALBUTEROL 3 ML NEB INHALATION SCH ×4 (15:29→20:23)
[2020-10-04] MEDS: MAGNESIUM SULFATE-D5W PMX 1 GM in DEXTROSE/WATER 1 100ML.BAG IVPB SCH ×3 (15:46→18:15)
--- NOTE | 2020-10-04 15:50 | P.CNPUL ---
History of Present Illness Consult date: 10/04/20 Chief complaint: Thoracotomy, bypass surgery History of present illness: 65-year-old female patient underwent coronary artery bypass surgery. The patient is known to have coronary artery disease and previous history of atrial fibrillation. Recently, the patient was having complaints of worsening shortness of breath. She had a positive cardiac stress test. Cardiac catheterization revealed disease involving the left main coronary artery with severe stenosis in the circumflex and LAD. There was mild disease involving the RCA. Based on that, the patient was taken to the operating room and the patient underwent off-pump ALVARADO to LAD and radial to to OM.. The patient was brought back to the intensive care unit for further monitoring. [place]-Jenny catheter was pulled out and operating room as the patient was found to have a left-sided subclavian and the vessel was ablated intraoperatively and the catheter was removed. As such, no hemodynamic parameters are available. She has an A-line in her right radial. Her blood pressure is adequate for now and she is on no pressors. She is on a Cardizem drip at 5 mg an hour and she is on a low dose nitroglycerin drip. The patient is currently on assist control mode at the rate of 10 with a tidal volume of 400 FiO2 of 50% with a PEEP of 5. Output from the chest tube has been minimal since the patient up from the operating room in the order of 30 mL and and there is no evidence of any air leak. All of the tubes are in good location based on the chest x-ray. The blood gas showed a pH of 7.28 with a pCO2 of 51 and pO2 of 169. FiO2 was up to 50% and I further increased the rate up to 20. She has an adequate urine output. She is currently on propofol. Postoperative hemoglobin is 11.9. Review of Systems ROS unobtainable: due to mental status Past Medical History Past Medical History: Atrial Fibrillation, Hyperlipidemia, Hypertension, Osteoarthritis (OA), Sleep Apnea/CPAP/BIPAP Additional Past Medical History / Comment(s): HX of Pancreatitis, uses CPAP, pnumonia few years ago, DDD & some sciatic nerve pain down right leg History of Any Multi-Drug Resistant Organisms: None Reported Past Surgical History: Cholecystectomy, Heart Catheterization, Tonsillectomy, Tubal Ligation Additional Past Surgical History / Comment(s): Dev. Septum Past Anesthesia/Blood Transfusion Reactions: Previous Problems w/ Anesthesia, Motion Sickness Additional Past Anesthesia/Blood Transfusion Reaction / Comment(s): was told she was diff. intubation with dev. septum surg., no problems w/seng which was after that Smoking Status: Current every day smoker - Past Family History Father Family Medical History: Cancer Medications and Allergies Home Medications Medication Instructions Recorded Confirmed Type Gabapentin [Neurontin] 300 mg PO TID 07/07/16 10/04/20 History atenoloL [Tenormin] 25 mg PO DAILY 07/07/16 10/04/20 History Apixaban [Eliquis] 5 mg PO BID 10/28/18 10/04/20 History Citalopram Hydrobromide [CeleXA] 20 mg PO DAILY 10/28/18 10/04/20 History Losartan [Cozaar] 25 mg PO DAILY 10/28/18 10/04/20 History Omeprazole 20 mg PO DAILY 10/28/18 10/04/20 History Amitriptyline HCl [Elavil] 25 mg PO HS 09/27/20 10/04/20 History Aspirin 325 mg PO DAILY 09/27/20 10/04/20 History Atorvastatin [Lipitor] 40 mg PO DAILY 09/27/20 10/04/20 History Allergies Allergy/AdvReac Type Severity Reaction Status Date / Time morphine AdvReac Hallucinati Verified 10/04/20 05:55 ons Physical Exam Vitals: Vital Signs Temp Pulse Pulse Resp BP BP BP 10/04/20 15:33 58 L 10/04/20 15:00 56 L 20 105/65 10/04/20 14:45 56 L 20 97/58 10/04/20 14:30 61 12 106/65 10/04/20 14:15 63 12 103/63 10/04/20 14:00 61 12 106/69 10/04/20 13:50 63 12 10/04/20 13:40 95.7 F L 59 L 12 10/04/20 05:54 96.2 F L 64 16 136/83 160/89 Pulse Ox 10/04/20 15:33 10/04/20 15:00 99 10/04/20 14:45 100 10/04/20 14:30 100 10/04/20 14:15 100 10/04/20 14:00 100 10/04/20 13:50 100 10/04/20 13:40 100 10/04/20 05:54 96 Intake and Output 10/04/20 10/04/20 10/04/20 06:59 14:59 22:59 Intake Total 0 209 57.111 Output Total 1805 60 Balance 0 -1596 -2.889 Intake: IV 0 209 56 ACETAMINOPHEN IV (For NPO 100 ) 1,000 mg In Empty Bag 1 bag @ 400 mls/hr IVPB Q6H ELANA Rx#:[id number] Lactated Ringers 1,000 ml 50 50 @ 50 mls/hr IV .Q20H ELANA Rx#:[id number] Pressure bags 6 6 Intake, IV Titration 1.111 Amount Insulin Regular 100 unit 1.111 In Sodium Chloride 0.9% 100 ml @ Per Protocol IV .Q0M ELANA Rx#:[id number] Output: Chest Tube Drainage 15 10 Left Pleural/Mediastinal 15 10 Drainage 0 Left Wrist 0 Urine 790 50 Estimated Blood Loss 1000 Other: Weight 88 kg ABP, PAP, CO, CI - Last 8 Hours Arterial Blood Pressure 133/62 Arterial Blood Pressure 140/67 Arterial Blood Pressure 156/73 Arterial Blood Pressure 132/65 The patient is postop thoracotomy, and comfortable no acute distress, well sedated Head exam was generally normal. There was no scleral icterus or corneal arcus. Mucous membranes were moist. Neck was supple and without jugular venous distension, thyromegaly, or carotid bruits. Carotids were easily palpable bilaterally. There was no adenopathy. Lungs sounds are diminished and the patient has a left pleural and Bystolic chest tube. Surgical wound site is dry clean and intact. Breath sounds are equal and symmetrical and there is no wheezing or rhonchi any crackles. Cardiac exam revealed the PMI to be normally situated and sized. The rhythm was regular and no extrasystoles were noted during several minutes of auscultation. The first and second heart sounds were normal and physiologic splitting of the second heart sound was noted. There were no murmurs, rubs, clicks, or gallops. Abdominal exam revealed normal bowel sounds. The abdomen was soft, non-tender, and without masses, organomegaly, or appreciable enlargement of the abdominal aorta. Examination of the extremities revealed easily palpable radial, femoral and pedal pulses. There was no cyanosis, clubbing or edema. Surgical wound site o danay the left radial area and the left upper extremity is dry clean and intact. There is also BELLE drain in place with scant serosanguineous/bloody output. Results - Laboratory Findings CBC and BMP: 10/04/20 15:00 10/04/20 13:35 ABG ABG pH 7.28 (7.35-7.45) L 10/04/20 14:09 ABG pCO2 51 mmHg (35-45) H 10/04/20 14:09 ABG pO2 169 mmHg (83-108) H 10/04/20 14:09 ABG O2 Saturation 99.9 % (94-97) H 10/04/20 14:09 PT/INR, D-dimer PT 11.2 sec (9.0-12.0) 10/04/20 13:35 INR 1.1 (<1.2) 10/04/20 13:35 Abnormal lab findings: Abnormal Labs 09/27/20 10/04/20 10/04/20 09:00 06:07 08:40 WBC Hct Plt Count Neutrophils # ABG pH ABG pCO2 ABG pO2 211 H ABG Total CO2 26 H ABG O2 Saturation 99.7 H ABG Ionized Calcium ABG Glucose 126 H Hemoglobin Sodium Glucose POC Glucose (mg/dL) 115 H Calcium Ionized Calcium Frieda Magnesium AST ALT Total Protein Albumin Arterial Blood Glucose 126 H Crossmatch See Detail 10/04/20 10/04/20 10/04/20 09:56 10:34 11:21 WBC Hct Plt Count Neutrophils # ABG pH ABG pCO2 ABG pO2 201 H 202 H 173 H ABG Total CO2 26 H 26 H 25 H ABG O2 Saturation 99.7 H 99.8 H 99.7 H ABG Ionized Calcium 4.4 L ABG Glucose 134 H 145 H 159 H Hemoglobin Sodium Glucose POC Glucose (mg/dL) Calcium Ionized Calcium Frieda Magnesium AST ALT Total Protein Albumin Arterial Blood Glucose 134 H 145 H 159 H Crossmatch 10/04/20 10/04/20 10/04/20 11:56 13:35 13:35 WBC 12.4 H Hct 33.3 L Plt Count 134 L Neutrophils # 10.3 H ABG pH ABG pCO2 ABG pO2 175 H ABG Total CO2 25 H ABG O2 Saturation 99.8 H ABG Ionized Calcium 4.4 L ABG Glucose 164 H Hemoglobin 11.2 L Sodium 135 L Glucose 142 H POC Glucose (mg/dL) Calcium 8.3 L Ionized Calcium Frieda 5.4 H Magnesium 1.4 L AST 256 H ALT 128 H Total Protein 4.5 L Albumin 2.6 L Arterial Blood Glucose 164 H Crossmatch 10/04/20 10/04/20 10/04/20 13:44 14:05 14:09 WBC Hct Plt Count Neutrophils # ABG pH 7.28 L ABG pCO2 51 H ABG pO2 169 H ABG Total CO2 26 H ABG O2 Saturation 99.9 H ABG Ionized Calcium ABG Glucose Hemoglobin Sodium Glucose POC Glucose (mg/dL) 146 H 143 H Calcium Ionized Calcium Frieda Magnesium AST ALT Total Protein Albumin Arterial Blood Glucose Crossmatch 10/04/20 10/04/20 15:00 15:07 WBC 11.1 H Hct Plt Count 144 L Neutrophils # 9.4 H ABG pH ABG pCO2 ABG pO2 ABG Total CO2 ABG O2 Saturation ABG Ionized Calcium ABG Glucose Hemoglobin Sodium Glucose POC Glucose (mg/dL) 142 H Calcium Ionized Calcium Frieda Magnesium AST ALT Total Protein Albumin Arterial Blood Glucose Crossmatch - Diagnostic Findings Chest x-ray: image reviewed Assessment and Plan Plan: 1 multivessel coronary artery disease and the patient is post coronary artery bypass surgery the patient is postop day #0. The patient underwent ALVARADO to LAD and diagonal and left radial to OM. Hemodynamically stable. Still intubated on a mechanical ventilator. On no pressors. She is on a combination of Cardizem drip and nitroglycerin drip at 5 mg an hour and the patient is also on insulin drip at 1.5 units an hour. 2 post thoracotomy, still on a mechanical ventilated intubated. Chest x-ray was noted. Blood gases was noted. Chest tubes are in place. 3 obstructive sleep apnea mild with an AHI of 10 maintained on a CPAP on outpatient basis 4 history of atrial fibrillation currently her rhythm is sinus 5 hypertension 6 hyperlipidemia 7 osteoarthritis and previous history of sciatica 8 COPD with mild obstructive airway limitation with a preop FEV1 of 67% of predicted. 9 left-sided SVC, congenital anomaly Plan Continue ventilator support and there is a sitter ventilator changes were done, chest x-ray was reviewed, blood gases was reviewed Gradually weaning of the propofol Keep a Cardizem drip and a nitroglycerin drip for now and insulin drip to manage the blood sugars Cardiac rhythm is sinus and the patient is hemodynamically stable. The patient does not have a [place]-Jenny catheter in place Monitor the output from the chest tubes Possibly exhibition within next few hours. We'll continue to follow. Condition is stable for now.
--- NOTE | 2020-10-04 16:14 | P.OP ---
Date of Procedure: 10/04/20 Preoperative Diagnosis: coronary artery disease, paroxysmal atrial fibrillation Postoperative Diagnosis: same Procedure(s) Performed: off pump coronary artery bypass grafting 3 with sequential ALVARADO to diagonal and LAD and left radial artery graft to obtuse marginal, bilateral pulmonary vein ablation with ligation of the left atrial appendage. Implants: 40 mm AtriCure clip Anesthesia: KIERSTEN Surgeon: Iban Rosales Professional Benefits Sales Consultant #1: Adrian Luna Professional Benefits Sales Consultant #2: Kayy Alexander Estimated Blood Loss (ml): 100 IV fluids (ml): 2,000 Urine output (ml): 500 Pathology: none sent Condition: stable Disposition: ICU Indications for Procedure: 65-year-old female with shortness of breath presents with findings of significant left-sided coronary artery disease as well as history of paroxysmal atrial fibrillation. Coronary artery bypass grafting was requested by cardiology. Patient was scheduled electively. Planned modified [place] maze procedure was also scheduled. Operative Findings: LAD, diagonal and obtuse marginal were good coronary targets. The intermediate branch was relatively small. Good radial artery and saphenous vein conduits were available. Ventricular function was good. There was absent left innominate vein and persistent left superior vena cava. Description of Procedure: the patient was brought to the operating room, placed supine on the operating table, anesthetized and intubated. [place]-Jenny catheter had been placed via the left internal jugular approach due to failure of being able to place a right internal jugular catheter. RAND probe was placed after intubation. Anterior torso and left upper extremity were sterilely prepped and draped. Left radial artery was harvested using an of vascular harvest techniques and was a good conduit. Simultaneous sternotomy was performed left hemisternum retracted upwards and the left internal mammary artery harvested on a vascular pedicle left intact on its origin from the subclavian and divided distally. It was also a good conduit. Left pleural space was drained with 32-Dutch chest tube. Standard sternal retractor was placed. Pericardium was opened in the midline. Heart was exposed with pericardial sutures. Blunt dissection was carried out around the right pulmonary veins following anticoagulation. RAND demonstrated no evidence of thrombus in the left atrium or left atrial appendage. Once we encircled the right pulmonary veins the left atrium was ablated at the insertion of the right pulmonary veins using the AtriCure clamp. 3 parallel lines were performed. Following this the left arm had been successfully closed and dressed and was tucked at the patient's side. We now exposed the left pulmonary veins. It was at this point that we encountered the persistent left superior vena cava. We're able to encircle the left pulmonary veins and ablated the left atrium at the insertion of the left pulmonary veins with 3 parallel lines. We then performed a single ablation across the persistent left superior vena cava. Was at this point that we were informed that Ant[place]-Jenny catheter was in that vessel. This was a surprise as noted discussed with us the issues and had with cannulation of the right side. This point the Antler was pulled back and the Cordis was left in the left IJ. We now proceeded with the coronary bypass grafting. A CTs were maintained greater than 250 during the procedure. Coronary targets were identified and it was decided to graft the LAD diagonal and obtuse marginal given the targets. We first set up a [id number] anastomosis between the LAD and diagonal. The diagonal coronary artery was stabilized and opened and blood flow controlled with a 1.5 mm flow through. It was 1.75 mm vessel. [id number] anastomosis was constructed with running 8-0 Prolene suture. On completion of the anastomosis the flow through was removed effectively probing the proximal and distal portions of the anastomosis. There was good flow from the end of the ALVARADO and the bulldog clamp was moved from proximal to distal on the ALVARADO. In doing so we did note augmentation to the flow through the ALVARADO for the brief period that the LOLY was unclamped. We now examined the anastomosis and noted good hemostasis. The LOLY pedicle was tacked to the surrounding epicardium with 6-0 silk. The ALVARADO had more than adequate length to reach the mid LAD. The middle LAD was dissected out and was a 2 mm vessel of good quality, was opened, and blood flow controlled with a 2 mm flow through. End to side anastomosis between the ALVARADO and the LAD was performed with running 8-0 Prolene suture. On completion of the anastomosis the flow through was removed effectively probing the proximal and distal portions of the anastomosis. Suture was tied with good result and hemostasis. Graft was noted to lay well without any kinking or sharp curves and the García of both anastomoses filled well again without any kinking. We now exposed the obtuse marginal coronary artery. It became small fairly quickly and was dissected out high near the AV groove. Here was a 2 mm vessel. It was opened and a 2 mm flow through could be threaded proximally but not distally. This was then exchanged for a 1.5 mm flow through. End to side anastomosis between the radial artery and the obtuse marginal was performed with running 7-0 Prolene suture. On completion anastomosis flow through was removed effectively probing the proximal distal portion anastomosis. Good backbleeding was noted into the radial artery. Suture was tied with good result and hemostasis. The heart was lowered in anatomic position and the radial was noted to be of more than adequate length to reach the ascending aorta. The heartstring device was deployed in the mid ascending aorta to the left of midline. Proximal anastomosis was performed with running 5-0 Prolene suture. On completion of the proximal anastomosis the heartstring device was removed and suture was tied with good result and hemostasis. Inflow was open of the OM graft. The graft was noted to lay well without any kinking and have good length. Distal anastomosis was hemostatic. Heparin was now reversed with protamine and good hemostasis obtained throughout. The chest was irrigated with antibiotic solution. Mediastinum was drained with a 36-Dutch chest tube placed through separate stab incision. Both chest tubes were secured with 0 Ethibond sutures. Chest was again irrigated out and the sternum closed with 8 sternal wires. The fascia was closed with 0 Ethibond subcutaneous and subcuticular layers with layers of Vicryl suture. Bilateral
[2020-10-04 16:16] LABS: Glucose,Whole Blood 148 mg/dL (75-99)
[2020-10-04 17:09] LABS: Glucose,Whole Blood 167 mg/dL (75-99)
[2020-10-04 17:39] LABS: ABG Base Excess -3.1 mmol/L; ABG HCO3 23 mmol/L (21-25); ABG Oxygen Saturation 98.1 % (94-97); ABG PCO2 47 mmHg (35-45); ABG PH 7.31 (7.35-7.45); ABG PO2 117 mmHg (83-108); ABG TCO2 25 mmol/L (19-24); Allen Test Performed? Yes
[2020-10-04] MEDS: KETOROLAC 15 MG/ML 1 ML VIAL IVP SCH ×2 (17:52→23:58)
[2020-10-04 18:12] LABS: Glucose,Whole Blood 160 mg/dL (75-99)
[2020-10-04 18:44] LABS: Basophils % (A) 0 %; Eosinophils # (A) 0.1 k/uL (0-0.7); Eosinophils % (A) 1 %; HCT 36.2 % (34.0-46.0); HGB 12.2 gm/dL (11.4-16.0); Lymphocytes % (A) 7 %; MCH 29.3 pg (25.0-35.0); MCHC 33.8 g/dL (31.0-37.0); MCV 86.8 fL (80.0-100.0); Mean Platelet Volume 9.2; Monocytes # (A) 0.6 k/uL (0-1.0); Monocytes % (A) 4 %; Neutrophils # (A) 11.4 k/uL (1.3-7.7); Neutrophils % (A) 87 %; Platelet Count 152 k/uL (150-450); RBC 4.17 m/uL (3.80-5.40); RDW 12.9 % (11.5-15.5); WBC 13.1 k/uL (3.8-10.6)
[2020-10-04 19:02] LABS: Glucose,Whole Blood 162 mg/dL (75-99)
[2020-10-04 20:17] LABS: Glucose,Whole Blood 150 mg/dL (75-99)
[2020-10-04] MEDS: HEPARIN SODIUM,PORCINE 5,000 UNIT/ML 1 ML VIAL SQ SCH (20:38)
[2020-10-04] MEDS ORDERED: CHLORHEXIDINE GLUCONATE 15 ML CUP MUCOUS MEM SCH (21:00)
[2020-10-04] MEDS ORDERED: MUPIROCIN 2% OINT 22 GM TUBE NASAL ONE (21:00)
[2020-10-04 21:12] LABS: Glucose,Whole Blood 141 mg/dL (75-99)
[2020-10-04 22:10] LABS: Glucose,Whole Blood 130 mg/dL (75-99)
[2020-10-04 23:12] LABS: Glucose,Whole Blood 124 mg/dL (75-99)
[2020-10-04] MEDS ORDERED: HYDROcodone/APAP 5-325MG 1 EACH TAB PO PRN (23:25)
[2020-10-05 00:14] LABS: Glucose,Whole Blood 109 mg/dL (75-99)
[2020-10-05 01:15] LABS: Glucose,Whole Blood 138 mg/dL (75-99)
[2020-10-05 02:10] LABS: Glucose,Whole Blood 145 mg/dL (75-99)
[2020-10-05 03:13] LABS: Glucose,Whole Blood 140 mg/dL (75-99)
[2020-10-05 04:22] LABS: Glucose,Whole Blood 131 mg/dL (75-99)
[2020-10-05] MEDS: HYDROcodone/APAP 5-325MG 1 EACH TAB PO PRN ×3 (04:36→22:54)
[2020-10-05] MEDS: HEPARIN SODIUM,PORCINE 5,000 UNIT/ML 1 ML VIAL SQ SCH ×3 (04:36→20:25)
[2020-10-05 04:40] LABS: Ionized Calcium 5.1 mg/dL (4.5-5.3)
[2020-10-05 04:49] LABS: ALT 142 U/L (4-34); AST 126 U/L (14-36); African American GFR (CKD) >90 (>60 ml/min/1.73 sqM); Albumin 3.1 g/dL (3.5-5.0); Alkaline Phosphatase 63 U/L (38-126); Anion Gap 6 mmol/L; Blood Urea Nitrogen 16 mg/dL (7-17); Calcium 8.4 mg/dL (8.4-10.2); Carbon Dioxide 22 mmol/L (22-30); Chloride 103 mmol/L (98-107); Glucose 129 mg/dL (74-99); Magnesium 2.2 mg/dL (1.6-2.3); Non-African American GFR(CKD) >90 (>60 ml/min/1.73 sqM); Potassium 4.1 mmol/L (3.5-5.1); Sodium 131 mmol/L (137-145); Total Bilirubin 0.7 mg/dL (0.2-1.3); Total Protein 5.3 g/dL (6.3-8.2)
[2020-10-05 05:05] LABS: Glucose,Whole Blood 121 mg/dL (75-99)
[2020-10-05] MEDS: KETOROLAC 15 MG/ML 1 ML VIAL IVP SCH ×3 (05:30→17:00)
[2020-10-05 05:32] LABS: Basophils % (A) 0 %; Eosinophils % (A) 0 %; HCT 36.9 % (34.0-46.0); HGB 12.3 gm/dL (11.4-16.0); Lymphocytes # (A) 0.9 k/uL (1.0-4.8); Lymphocytes % (A) 5 %; MCH 29.2 pg (25.0-35.0); MCHC 33.2 g/dL (31.0-37.0); MCV 88.1 fL (80.0-100.0); Mean Platelet Volume 9.7; Monocytes % (A) 6 %; Neutrophils # (A) 14.2 k/uL (1.3-7.7); Neutrophils % (A) 88 %; Platelet Count 167 k/uL (150-450); RBC 4.19 m/uL (3.80-5.40); RDW 12.8 % (11.5-15.5); WBC 16.1 k/uL (3.8-10.6)
[2020-10-05 06:19] LABS: Glucose,Whole Blood 135 mg/dL (75-99)
[2020-10-05 07:05] LABS: Glucose,Whole Blood 140 mg/dL (75-99)
--- NOTE | 2020-10-05 07:30 | P.PN ---
Subjective Progress Note Date: 10/05/20 65-year-old female patient underwent coronary artery bypass surgery. The patie nt is known to have coronary artery disease and previous history of atrial fibrillation. Recently, the patient was having complaints of worsening shortness of breath. She had a positive cardiac stress test. Cardiac catheterization revealed disease involving the left main coronary artery with severe stenosis in the circumflex and LAD. There was mild disease involving the RCA. Based on that, the patient was taken to the operating room and the patient underwent off-pump ALVARADO to LAD and radial to to OM.. The patient was brought back to the intensive care unit for further monitoring. [place]-Jenny catheter was pulled out and operating room as the patient was found to have a left-sided subclavian and the vessel was ablated intraoperatively and the catheter was removed. As such, no hemodynamic parameters are available. She has an A-line in her right radial. Her blood pressure is adequate for now and she is on no pressors. She is on a Cardizem drip at 5 mg an hour and she is on a low dose nitroglycerin drip. The patient is currently on assist control mode at the rate of 10 with a tidal volume of 400 FiO2 of 50% with a PEEP of 5. Output from the chest tube has been minimal since the patient up from the operating room in the order of 30 mL and and there is no evidence of any air leak. All of the tubes are in good location based on the chest x-ray. The blood gas showed a pH of 7.28 with a pCO2 of 51 and pO2 of 169. FiO2 was up to 50% and I further increased the rate up to 20. She has an adequate urine output. She is currently on propofol. Postoperative hemoglobin is 11.9. Is evaluation of 10/05/2020, seeing the patient for a follow-up. Note that the patient was extubated yesterday without any major difficulties and she did very well post extubation she is currently on oxygen at 4 L per minute nasal cannula. Incentive spirometer and she is calm and comfortable. The patient has a mediastinal and the left pleural chest tube and output has been in the order of 300 mL over the past 12 hours. Output is serosanguineous. She also has a BELLE drain in the left upper extremity and output is scant for now. She is on drips and she is on a Cardizem drip arriving at 5 mg an hour and an insulin drip running at 1.5 units an hour which was increased up to 4.0 units an hour overnight. The nitroglycerin drip is off for now. The chest x-ray from today was reviewed and the patient is adequate expansion of both lungs and there is no evidence of any pneumothorax. Sternum stable clean and intact on examination. On today's chest x-ray there is some atelectatic changes in the left lung base. No signs of any effusion. She was able to use the incentive spirometer and she is pulling approximately 500 mL. No active pain issues. Hemoglobin is at 12.3. Function stable. LFTs are down trending. She is afebrile. The neck fluid balance over the past 24 hours is -80 disease. She is on no pressors for now. Meanwhile, the patient is on aspirin 325 mg by mouth daily, she is also on Plavix 75 mg by mouth daily, she was started on metoprolol 12.5 mg by mouth twic e a day and Cardizem drip is running at 5 mg an hour. She is communicating. No focal neurological deficit at this point in time. Objective - Vital Signs Vital signs: Vital Signs Temp 98.2 F 10/05/20 04:00 Pulse 66 10/05/20 06:00 Resp 20 10/05/20 06:00 BP 99/65 10/05/20 06:00 Pulse Ox 93 L 10/05/20 06:00 Intake & Output 10/04/20 10/05/20 10/05/20 18:59 06:59 18:59 Intake Total 807.274 2821.003 2.625 Output Total 2285 711 Balance -6741.570 4488.003 2.625 Weight 89.7 kg Intake: IV 783 1353.5 ACETAMINOPHEN IV (For NPO 100 100 ) 1,000 mg In Empty Bag 1 bag @ 400 mls/hr IVPB Q6H ELANA Rx#:[id number] Albumin Human 5% 500 ml @ 500 Per Protocol IVPB ONCE ONE Rx#:[id number] Diltiazem 125 mg In 15 Sodium Chloride 0.9% 100 ml @ 5 MG/HR 5 mls/hr IV .Q24H ELANA Rx#:[id number] Lactated Ringers 1,000 ml 250 600 @ 50 mls/hr IV .Q20H ELANA Rx#:[id number] Magnesium Sulfate-D5w Pmx 300 1 gm In Dextrose/Water 1 100ml.bag @ 100 mls/hr IVPB Q1H ELANA Rx#: [id number] Nitroglycerin-D5w Pmx 50 16.5 mg In Dextrose/Water 1 250ml.bag @ 5 MCG/MIN 1.5 mls/hr IV .Q24H ELANA Rx#: [id number] Pressure bags 30 72 ceFAZolin 2 gm In Sodium 50 50 Chloride 0.9% 50 ml @ 100 mls/hr IVPB Q8HR ELANA Rx# :[id number] Intake, IV Titration 48.792 130.503 2.625 Amount Diltiazem 125 mg In 65.083 Sodium Chloride 0.9% 100 ml @ 5 MG/HR 5 mls/hr IV .Q24H ELANA Rx#:[id number] Insulin Regular 100 unit 8.400 45.420 2.625 In Sodium Chloride 0.9% 100 ml @ Per Protocol IV .Q0M ELANA Rx#:[id number] Nitroglycerin-D5w Pmx 50 20 mg In Dextrose/Water 1 250ml.bag @ 5 MCG/MIN 1.5 mls/hr IV .Q24H ELANA Rx#: [id number] propofoL 1,000 mg In 40.392 Empty Bag 1 bag @ Titrate IV .Q0M ELANA Rx#: [id number] Oral 600 Output: Chest Tube Drainage 130 318 Left Pleural/Mediastinal 130 318 Drainage 40 13 Left Wrist 40 13 Urine 1115 380 Estimated Blood Loss 1000 Other: Voiding Method Indwelling Catheter Indwelling Catheter ABP, PAP, CO, CI - Last Documented Arterial Blood Pressure 111/72 - Exam The patient is postop thoracotomy, patient is awake and alert and she is currently on 3 L about 2 by nasal cannula. Head exam was generally normal. There was no scleral icterus or corneal arcus. Mucous membranes were moist. Neck was supple and without jugular venous distension, thyromegaly, or carotid bruits. Carotids were easily palpable bilaterally. There was no adenopathy. Lungs sounds are diminished and the patient has a left pleural and Bystolic chest tube. Surgical wound site is dry clean and intact. Breath sounds are equal and symmetrical and there is no wheezing or rhonchi any crackles. Cardiac exam revealed the PMI to be normally situated and sized. The rhythm was regular and no extrasystoles were noted during several minutes of auscultation. The first and second heart sounds were normal and physiologic splitting of the second heart sound was noted. There were no murmurs, rubs, clicks, or gallops. Abdominal exam revealed normal bowel sounds. The abdomen was soft, non-tender, and without masses, organomegaly, or appreciable enlargement of the abdominal aorta. Examination of the extremities revealed easily palpable radial, femoral and pedal pulses. There was no cyanosis, clubbing or edema. Surgical wound site over the left radial area and the left upper extremity is dry clean and intact. There is also BELLE drain in place with scant serosanguineous/bloody output. Neurologically awake and alert and there is no focal neurological deficits for now. She is awake and oriented 3. - Labs CBC & Chem 7: 10/05/20 04:20 10/05/20 04:20 Labs: Abnormal Lab Results - Last 24 Hours (Table) 09/27/20 10/04/20 10/04/20 Range/Units 09:00 08:40 09:56 WBC (3.8-10.6) k/uL Hct (34.0-46.0) % Plt Count (150-450) k/uL Neutrophils # (1.3-7.7) k/uL Lymphocytes # (1.0-4.8) k/uL ABG pH (7.35-7.45) ABG pCO2 (35-45) mmHg ABG pO2 211 H 201 H (83-108) mmHg ABG Total CO2 26 H 26 H (19-24) mmol/L ABG O2 Saturation 99.7 H 99.7 H (94-97) % ABG Ionized Calcium (4.5-5.3) mg/dL ABG Glucose 126 H 134 H (75-99) mg/dL Hemoglobin (11.4-16.0) gm/dL Sodium (137-145) mmol/L Glucose (74-99) mg/dL POC Glucose (mg/dL) (75-99) mg/dL Calcium (8.4-10.2) mg/dL Ionized Calcium Frieda (4.5-5.3) mg/dL Magnesium (1.6-2.3) mg/dL AST (14-36) U/L ALT (4-34) U/L Total Protein (6.3-8.2) g/dL Albumin (3.5-5.0) g/dL Arterial Blood Glucose 126 H 134 H (75-99) mg/dL Crossmatch See Detail 10/04/20 10/04/20 10/04/20 Range/Units 10:34 11:21 11:56 WBC (3.8-10.6) k/uL Hct (34.0-46.0) % Plt Count (150-450) k/uL Neutrophils # (1.3-7.7) k/uL Lymphocytes # (1.0-4.8) k/uL ABG pH (7.35-7.45) ABG pCO2 (35-45) mmHg ABG pO2 202 H 173 H 175 H (83-108) mmHg ABG Total CO2 26 H 25 H 25 H (19-24) mmol/L ABG O2 Saturation 99.8 H 99.7 H 99.8 H (94-97) % ABG Ionized Calcium 4.4 L 4.4 L (4.5-5.3) mg/dL ABG Glucose 145 H 159 H 164 H (75-99) mg/dL Hemoglobin 11.2 L (11.4-16.0) gm/dL Sodium (137-145) mmol/L Glucose (74-99) mg/dL POC Glucose (mg/dL) (75-99) mg/dL Calcium (8.4-10.2) mg/dL Ionized Calcium Frieda (4.5-5.3) mg/dL Magnesium (1.6-2.3) mg/dL AST (14-36) U/L ALT (4-34) U/L Total Protein (6.3-8.2) g/dL Albumin (3.5-5.0) g/dL Arterial Blood Glucose 145 H 159 H 164 H (75-99) mg/dL Crossmatch 10/04/20 10/04/20 10/04/20 Range/Units 13:35 13:35 13:44 WBC 12.4 H (3.8-10.6) k/uL Hct 33.3 L (34.0-46.0) % Plt Count 134 L (150-450) k/uL Neutrophils # 10.3 H (1.3-7.7) k/uL Lymphocytes # (1.0-4.8) k/uL ABG pH (7.35-7.45) ABG pCO2 (35-45) mmHg ABG pO2 (83-108) mmHg ABG Total CO2 (19-24) mmol/L ABG O2 Saturation (94-97) % ABG Ionized Calcium (4.5-5.3) mg/dL ABG Glucose (75-99) mg/dL Hemoglobin (11.4-16.0) gm/dL Sodium 135 L (137-145) mmol/L Glucose 142 H (74-99) mg/dL POC Glucose (mg/dL) 146 H (75-99) mg/dL Calcium 8.3 L (8.4-10.2) mg/dL Ionized Calcium Frieda 5.4 H (4.5-5.3) mg/dL Magnesium 1.4 L (1.6-2.3) mg/dL AST 256 H (14-36) U/L ALT 128 H (4-34) U/L Total Protein 4.5 L (6.3-8.2) g/dL Albumin 2.6 L (3.5-5.0) g/dL Arterial Blood Glucose (75-99) mg/dL Crossmatch 10/04/20 10/04/20 10/04/20 Range/Units 14:05 14:09 15:00 WBC 11.1 H (3.8-10.6) k/uL Hct (34.0-46.0) % Plt Count 144 L (150-450) k/uL Neutrophils # 9.4 H (1.3-7.7) k/uL Lymphocytes # (1.0-4.8) k/uL ABG pH 7.28 L (7.35-7.45) ABG pCO2 51 H (35-45) mmHg ABG pO2 169 H (83-108) mmHg ABG Total CO2 26 H (19-24) mmol/L ABG O2 Saturation 99.9 H (94-97) % ABG Ionized Calcium (4.5-5.3) mg/dL ABG Glucose (75-99) mg/dL Hemoglobin (11.4-16.0) gm/dL Sodium (137-145) mmol/L Glucose (74-99) mg/dL POC Glucose (mg/dL) 143 H (75-99) mg/dL Calcium (8.4-10.2) mg/dL Ionized Calcium Frieda (4.5-5.3) mg/dL Magnesium (1.6-2.3) mg/dL AST (14-36) U/L ALT (4-34) U/L Total Protein (6.3-8.2) g/dL Albumin (3.5-5.0) g/dL Arterial Blood Glucose (75-99) mg/dL Crossmatch 10/04/20 10/04/20 10/04/20 Range/Units 15:07 16:15 17:08 WBC (3.8-10.6) k/uL Hct (34.0-46.0) % Plt Count (150-450) k/uL Neutrophils # (1.3-7.7) k/uL Lymphocytes # (1.0-4.8) k/uL ABG pH (7.35-7.45) ABG pCO2 (35-45) mmHg ABG pO2 (83-108) mmHg ABG Total CO2 (19-24) mmol/L ABG O2 Saturation (94-97) % ABG Ionized Calcium (4.5-5.3) mg/dL ABG Glucose (75-99) mg/dL Hemoglobin (11.4-16.0) gm/dL Sodium (137-145) mmol/L Glucose (74-99) mg/dL POC Glucose (mg/dL) 142 H 148 H 167 H (75-99) mg/dL Calcium (8.4-10.2) mg/dL Ionized Calcium Frieda (4.5-5.3) mg/dL Magnesium (1.6-2.3) mg/dL AST (14-36) U/L ALT (4-34) U/L Total Protein (6.3-8.2) g/dL Albumin (3.5-5.0) g/dL Arterial Blood Glucose (75-99) mg/dL Crossmatch 10/04/20 10/04/20 10/04/20 Range/Units 17:37 18:10 18:41 WBC 13.1 H (3.8-10.6) k/uL Hct (34.0-46.0) % Plt Count (150-450) k/uL Neutrophils # 11.4 H (1.3-7.7) k/uL Lymphocytes # (1.0-4.8) k/uL ABG pH 7.31 L (7.35-7.45) ABG pCO2 47 H (35-45) mmHg ABG pO2 117 H (83-108) mmHg ABG Total CO2 25 H (19-24) mmol/L ABG O2 Saturation 98.1 H (94-97) % ABG Ionized Calcium (4.5-5.3) mg/dL ABG Glucose (75-99) mg/dL Hemoglobin (11.4-16.0) gm/dL Sodium (137-145) mmol/L Glucose (74-99) mg/dL POC Glucose (mg/dL) 160 H (75-99) mg/dL Calcium (8.4-10.2) mg/dL Ionized Calcium Frieda (4.5-5.3) mg/dL Magnesium (1.6-2.3) mg/dL AST (14-36) U/L ALT (4-34) U/L Total Protein (6.3-8.2) g/dL Albumin (3.5-5.0) g/dL Arterial Blood Glucose (75-99) mg/dL Crossmatch 10/04/20 10/04/20 10/04/20 Range/Units 19:00 20:16 21:10 WBC (3.8-10.6) k/uL Hct (34.0-46.0) % Plt Count (150-450) k/uL Neutrophils # (1.3-7.7) k/uL Lymphocytes # (1.0-4.8) k/uL ABG pH (7.35-7.45) ABG pCO2 (35-45) mmHg ABG pO2 (83-108) mmHg ABG Total CO2 (19-24) mmol/L ABG O2 Saturation (94-97) % ABG Ionized Calcium (4.5-5.3) mg/dL ABG Glucose (75-99) mg/dL Hemoglobin (11.4-16.0) gm/dL Sodium (137-145) mmol/L Glucose (74-99) mg/dL POC Glucose (mg/dL) 162 H 150 H 141 H (75-99) mg/dL Calcium (8.4-10.2) mg/dL Ionized Calcium Frieda (4.5-5.3) mg/dL Magnesium (1.6-2.3) mg/dL AST (14-36) U/L ALT (4-34) U/L Total Protein (6.3-8.2) g/dL Albumin (3.5-5.0) g/dL Arterial Blood Glucose (75-99) mg/dL Crossmatch 10/04/20 10/04/20 10/05/20 Range/Units 22:09 23:10 00:13 WBC (3.8-10.6) k/uL Hct (34.0-46.0) % Plt Count (150-450) k/uL Neutrophils # (1.3-7.7) k/uL Lymphocytes # (1.0-4.8) k/uL ABG pH (7.35-7.45) ABG pCO2 (35-45) mmHg ABG pO2 (83-108) mmHg ABG Total CO2 (19-24) mmol/L ABG O2 Saturation (94-97) % ABG Ionized Calcium (4.5-5.3) mg/dL ABG Glucose (75-99) mg/dL Hemoglobin (11.4-16.0) gm/dL Sodium (137-145) mmol/L Glucose (74-99) mg/dL POC Glucose (mg/dL) 130 H 124 H 109 H (75-99) mg/dL Calcium (8.4-10.2) mg/dL Ionized Calcium Frieda (4.5-5.3) mg/dL Magnesium (1.6-2.3) mg/dL AST (14-36) U/L ALT (4-34) U/L Total Protein (6.3-8.2) g/dL Albumin (3.5-5.0) g/dL Arterial Blood Glucose (75-99) mg/dL Crossmatch 10/05/20 10/05/20 10/05/20 Range/Units 01:14 02:09 03:10 WBC (3.8-10.6) k/uL Hct (34.0-46.0) % Plt Count (150-450) k/uL Neutrophils # (1.3-7.7) k/uL Lymphocytes # (1.0-4.8) k/uL ABG pH (7.35-7.45) ABG pCO2 (35-45) mmHg ABG pO2 (83-108) mmHg ABG Total CO2 (19-24) mmol/L ABG O2 Saturation (94-97) % ABG Ionized Calcium (4.5-5.3) mg/dL ABG Glucose (75-99) mg/dL Hemoglobin (11.4-16.0) gm/dL Sodium (137-145) mmol/L Glucose (74-99) mg/dL POC Glucose (mg/dL) 138 H 145 H 140 H (75-99) mg/dL Calcium (8.4-10.2) mg/dL Ionized Calcium Frieda (4.5-5.3) mg/dL Magnesium (1.6-2.3) mg/dL AST (14-36) U/L ALT (4-34) U/L Total Protein (6.3-8.2) g/dL Albumin (3.5-5.0) g/dL Arterial Blood Glucose (75-99) mg/dL Crossmatch 10/05/20 10/05/20 10/05/20 Range/Units 04:20 04:20 04:20 WBC 16.1 H (3.8-10.6) k/uL Hct (34.0-46.0) % Plt Count (150-450) k/uL Neutrophils # 14.2 H (1.3-7.7) k/uL Lymphocytes # 0.9 L (1.0-4.8) k/uL ABG pH (7.35-7.45) ABG pCO2 (35-45) mmHg ABG pO2 (83-108) mmHg ABG Total CO2 (19-24) mmol/L ABG O2 Saturation (94-97) % ABG Ionized Calcium (4.5-5.3) mg/dL ABG Glucose (75-99) mg/dL Hemoglobin (11.4-16.0) gm/dL Sodium 131 L (137-145) mmol/L Glucose 129 H (74-99) mg/dL POC Glucose (mg/dL) 131 H (75-99) mg/dL Calcium (8.4-10.2) mg/dL Ionized Calcium Frieda (4.5-5.3) mg/dL Magnesium (1.6-2.3) mg/dL AST 126 H (14-36) U/L ALT 142 H (4-34) U/L Total Protein 5.3 L (6.3-8.2) g/dL Albumin 3.1 L (3.5-5.0) g/dL Arterial Blood Glucose (75-99) mg/dL Crossmatch 10/05/20 10/05/20 10/05/20 Range/Units 05:04 06:18 07:04 WBC (3.8-10.6) k/uL Hct (34.0-46.0) % Plt Count (150-450) k/uL Neutrophils # (1.3-7.7) k/uL Lymphocytes # (1.0-4.8) k/uL ABG pH (7.35-7.45) ABG pCO2 (35-45) mmHg ABG pO2 (83-108) mmHg ABG Total CO2 (19-24) mmol/L ABG O2 Saturation (94-97) % ABG Ionized Calcium (4.5-5.3) mg/dL ABG Glucose (75-99) mg/dL Hemoglobin (11.4-16.0) gm/dL Sodium (137-145) mmol/L Glucose (74-99) mg/dL POC Glucose (mg/dL) 121 H 135 H 140 H (75-99) mg/dL Calcium (8.4-10.2) mg/dL Ionized Calcium Frieda (4.5-5.3) mg/dL Magnesium (1.6-2.3) mg/dL AST (14-36) U/L ALT (4-34) U/L Total Protein (6.3-8.2) g/dL Albumin (3.5-5.0) g/dL Arterial Blood Glucose (75-99) mg/dL Crossmatch Assessment and Plan Plan: 1 multivessel coronary artery disease and the patient is post coronary artery bypass surgery the patient is postop day #1. The patient underwent ALVARADO to LAD and diagonal and left radial to OM. Hemodynamically stable. Still intubated on a mechanical ventilator. On no pressors. She is on a combination of Cardizem drip and nitroglycerin drip is off and the patient is also on insulin drip at 4units an hour. The patient is hemodynamically stable on no pressors and she is in a sinus rhythm for now. 2 post thoracotomy, the patient was extubated without any major difficulties, has some atelectatic changes and left lung base, she is using incentive spirometer. The mediastinal and the left pleural chest tubes are still in place and output has been noted. No major issues in the surgical wound site is dry clean and intact. 3 obstructive sleep apnea mild with an AHI of 10 maintained on a CPAP on outpatient basis 4 history of atrial fibrillation currently her rhythm is sinus 5 hypertension 6 hyperlipidemia 7 osteoarthritis and previous history of sciatica 8 COPD with mild obstructive airway limitation with a preop FEV1 of 67% of predicted. 9 left-sided SVC, congenital anomaly Plan Extubated to 3-4 L by nasal cannula Keep a Cardizem drip weaning off as the patient was started on metoprolol 25 mg twice a day and a nitroglycerin drip is off insulin drip to manage the blood sugars and insulin drip will be kept 24 hours post surgery and following that the patient will be switched to long-acting insulin if patient is taking clear liquid diet for now Cardiac rhythm is sinus and the patient is hemodynamically stable. The patient does not have a [place]-Jenny catheter and there is a Cordis in the left neck which can be removed on today's evaluation Encourage use of incentive spirometer Monitor the output from the chest tubes and output is minimal for now We'll continue to follow. Condition is stable for now. Will ambulate this patient We'll continue to follow.
[2020-10-05 08:08] LABS: Glucose,Whole Blood 178 mg/dL (75-99)
[2020-10-05] MEDS: ASPIRIN 325 MG TAB PO SCH (08:08)
[2020-10-05] MEDS: CLOPIDOGREL 75 MG TAB PO SCH (08:09)
[2020-10-05] MEDS: METOPROLOL TARTRATE 12.5 MG TAB PO SCH ×2 (08:09→20:26)
[2020-10-05] MEDS: ATORVASTATIN 40 MG TAB PO SCH (08:09)
[2020-10-05] MEDS: CITALOPRAM HYDROBROMIDE 20 MG TAB PO SCH (08:09)
[2020-10-05] MEDS: IPRATROPIUM-ALBUTEROL 3 ML NEB INHALATION SCH ×4 (08:12→19:35)
[2020-10-05] MEDS ORDERED: PANTOPRAZOLE 40 MG/10 ML VIAL IVP SCH (09:00)
[2020-10-05] MEDS ORDERED: bisacodyL 10 MG SUPP RECTAL PRN (09:00)
[2020-10-05] MEDS ORDERED: MAGNESIUM HYDROXIDE 2,400 MG/10 ML CUP PO PRN (09:00)
[2020-10-05 09:10] LABS: Glucose,Whole Blood 195 mg/dL (75-99)
--- NOTE | 2020-10-05 09:21 | XR ---
EXAMINATION TYPE: XR chest 1V portable DATE OF EXAM: 10/05/2020 COMPARISON: Chest x-ray 10/04/2020 HISTORY: Postop cardiac surgery, extubated, left chest tube TECHNIQUE: Single frontal view of the chest is obtained. FINDINGS: Endotracheal tube and NG tube have been removed. Left-sided chest tube is in place. No siz able pneumothorax or pleural effusion. Cardiac mediastinal silhouette is stable, median sternal drain remains in place. Postop changes again seen. Probable atelectatic changes persist greater in the lef t lung than right. There are overlying artifacts. IMPRESSION: Interval extubation. No other significant interval change.
--- NOTE | 2020-10-05 09:47 | P.CRDCN ---
History of Present Illness History of present illness: HISTORY OF PRESENTING ILLNESS This is a pleasant 65-year-old female past medical history significant for atrial fibrillation, hypertension, arthritis, sleep apnea, neuropathy, borderline diabetes mellitus and recently diagnosed coronary artery disease who presented for elective CABG. She follows in the office with Dr. Lane. She had been noticing complaints of increasing dyspnea on exertion as well as chest pain and therefore Dr. Alvarez performed stress test which was abnormal. She had a heart catheterization performed at [facility], report not currently available however reported 70% left main, 90% proximal LAD, small diagonal 90% stenosis, small ramus 80% stenosis and a large obtuse marginal 90% stenosis. On 10/04/2020 patient underwent successful off-pump CABG 3 with ALVARADO to diagonal and LAD and left radial artery graft to the obtuse marginal branch as well as bilateral pulmonary vein ablation and ligation of left atrial appendage. She did well with surgery and currently is seen sitting up in a chair. She denies any chest pain or pressure other than the incision. She does admit to some left rib cage pain with palpation however predominantly controlled with the meds. Vital signs stable, blood pressure 120/53, heart rate 75. She has been in sinus rhythm. DIAGNOSTICS Chest xray interval extubation, left-sided chest tube in place, no pneumothorax or pleural effusion, postop changes, probable atelectasis in left greater than right. Laboratory reviewed, white blood cell count 16.1, hemoglobin 12.3, platelets 167, sodium 131, glucose 129, creatinine 0.68, AST 126, ALT 142, albumin 3.1. Current cardiac medications include amiodarone drip, aspirin 325 mg daily, Lipitor 40 mg daily, Plavix 75 mg daily, Cardizem drip, heparin 5000 units subcu every 8 hours, metoprolol 12.5 mg twice a day. REVIEW OF SYSTEMS At the time of my exam: CONSTITUTIONAL: Denies fever or chills. CARDIOVASCULAR: +chest pain at incision, no shortness of breath, orthopnea, PND or palpitations. RESPIRATORY: Denies cough. GASTROINTESTINAL: Denies abdominal pain, diarrhea, constipation, nausea or vomiting. MUSCULOSKELETAL: Denies myalgias. NEUROLOGIC: Denies numbness, tingling or weakness. ENDOCRINE: Denies fatigue, weight change, polydipsia or polyurina. GENITOURINARY: Denies burning, hematuria or urgency with micturation. HEMATOLOGIC: Denies history of anemia or bleeding. PHYSICAL EXAMINATION Blood pressure 112/62 heart rate 75 afebrile and maintaining oxygen saturation on 2 L nasal cannula. CONSTITUTIONAL: No apparent distress. HEENT: Head is normocephalic. Pupils are equal, round. Sclerae anicteric. Mucous membranes of the mouth are moist. No JVD. No carotid bruit. CHEST EXAMINATION: Lungs are clear to auscultation. No chest wall tenderness is noted on palpation or with deep breathing. HEART EXAMINATION: Regular rate and rhythm. S1, S2 heard. No murmurs, gallops or rub. +sternotomy incision ABDOMEN: Soft, nontender. Positive bowel sounds. EXTREMITIES: 2+ peripheral pulses, no lower extremity edema and no calf tenderness. NEUROLOGIC EXAMINATION: Patient is awake, alert and oriented x3. ASSESSMENT 1. Coronary artery disease status post ALVARADO to LAD and diagonal as well as left radial artery to OM 10/04/2020 2. Persistent atrial fibrillation status post pulmonary vein ablation intraoperatively 10/04/2020, currently normal sinus rhythm 3. Essential hypertension 4. Hyperlipidemia 5. Leukocytosis 6. Borderline diabetes mellitus 7. Obesity 8. Mildly elevated liver enzymes AST 126, ALT 142 PLAN Patient appears to have done well with surgery and is recovering. Underwent successful ALVARADO to LAD and diagonal as well as left radial artery to OM. Additionally underwent ablation and appears in normal sinus rhythm. She is currently on aspirin and Plavix. We will discuss further with cardiothoracic surgery regarding initiation of anticoagulation for her atrial fibrillation. Monitor liver enzymes with amiodarone drip. Continue supportive care. Past Medical History Past Medical History: Atrial Fibrillation, Hyperlipidemia, Hypertension, Osteoarthritis (OA), Sleep Apnea/CPAP/BIPAP Additional Past Medical History / Comment(s): HX of Pancreatitis, uses CPAP, pnumonia few years ago, DDD & some sciatic nerve pain down right leg History of Any Multi-Drug Resistant Organisms: None Reported Past Surgical History: Cholecystectomy, Heart Catheterization, Tonsillectomy, Tubal Ligation Additional Past Surgical History / Comment(s): Dev. Septum Past Anesthesia/Blood Transfusion Reactions: Previous Problems w/ Anesthesia, Motion Sickness Additional Past Anesthesia/Blood Transfusion Reaction / Comment(s): was told she was diff. intubation with dev. septum surg., no problems w/seng which was after that Smoking Status: Current every day smoker - Past Family History Father Family Medical History: Cancer Medications and Allergies Home Medications Medication Instructions Recorded Confirmed Type Gabapentin [Neurontin] 300 mg PO TID 07/07/16 10/04/20 History atenoloL [Tenormin] 25 mg PO DAILY 07/07/16 10/04/20 History Apixaban [Eliquis] 5 mg PO BID 10/28/18 10/04/20 History Citalopram Hydrobromide [CeleXA] 20 mg PO DAILY 10/28/18 10/04/20 History Losartan [Cozaar] 25 mg PO DAILY 10/28/18 10/04/20 History Omeprazole 20 mg PO DAILY 10/28/18 10/04/20 History Amitriptyline HCl [Elavil] 25 mg PO HS 09/27/20 10/04/20 History Aspirin 325 mg PO DAILY 09/27/20 10/04/20 History Atorvastatin [Lipitor] 40 mg PO DAILY 09/27/20 10/04/20 History Allergies Allergy/AdvReac Type Severity Reaction Status Date / Time morphine AdvReac Hallucinati Verified 10/04/20 05:55 ons Physical Exam Vitals: Vital Signs Temp Pulse Pulse Resp BP Pulse Ox 10/05/20 09:00 75 15 112/62 94 L 10/05/20 08:22 70 10/05/20 08:15 72 10/05/20 08:00 97.5 F L 69 19 111/66 96 10/05/20 07:30 71 18 108/75 96 10/05/20 07:00 68 15 119/65 94 L 10/05/20 06:30 64 18 115/70 96 10/05/20 06:00 66 20 99/65 93 L 10/05/20 05:30 67 20 109/68 93 L 10/05/20 05:00 61 13 131/73 95 10/05/20 04:30 64 16 117/75 95 10/05/20 04:00 98.2 F 64 12 115/74 95 10/05/20 03:30 67 14 116/74 95 10/05/20 03:00 66 13 114/72 95 10/05/20 02:30 66 13 117/68 95 10/05/20 02:00 73 20 127/75 95 10/05/20 01:30 72 23 110/73 96 10/05/20 01:00 70 26 H 121/71 96 10/05/20 00:51 97 10/05/20 00:30 62 15 103/68 96 10/05/20 00:00 98.6 F 69 22 115/73 96 10/04/20 23:30 71 15 109/62 97 10/04/20 23:00 69 27 H 113/74 97 10/04/20 22:30 71 28 H 114/65 97 10/04/20 22:00 71 22 106/73 97 10/04/20 21:45 69 23 105/71 97 10/04/20 21:30 64 18 104/67 97 10/04/20 21:15 62 19 103/63 97 10/04/20 21:00 65 22 111/66 97 10/04/20 20:45 67 20 112/74 96 10/04/20 20:44 67 10/04/20 20:30 61 23 110/66 98 10/04/20 20:23 60 95 10/04/20 20:15 60 24 103/61 96 10/04/20 20:00 98.4 F 59 L 24 100/67 96 10/04/20 19:45 59 L 16 96/65 97 10/04/20 19:30 66 22 98/76 97 10/04/20 19:15 62 25 H 99/65 97 10/04/20 19:00 62 20 95/66 96 10/04/20 18:45 62 26 H 97/73 96 10/04/20 18:30 63 25 H 106/66 96 10/04/20 18:15 63 15 107/67 97 10/04/20 18:00 63 16 115/73 96 10/04/20 17:45 68 17 101/72 96 10/04/20 17:30 64 20 102/68 96 10/04/20 17:15 63 12 98/79 96 10/04/20 17:00 63 20 105/69 96 10/04/20 16:45 65 21 102/73 96 10/04/20 16:30 60 20 107/65 93 L 10/04/20 16:15 97.7 F 60 20 106/77 97 10/04/20 16:07 66 10/04/20 16:00 60 64 20 109/68 99 10/04/20 15:45 97.2 F L 58 L 20 102/63 99 10/04/20 15:33 58 L 10/04/20 15:30 56 L 20 99/65 98 10/04/20 15:15 56 L 20 101/64 99 10/04/20 15:00 56 L 20 105/65 99 10/04/20 14:45 56 L 20 97/58 100 10/04/20 14:30 61 12 106/65 100 10/04/20 14:15 63 12 103/63 100 10/04/20 14:00 61 12 106/69 100 10/04/20 13:50 63 12 100 10/04/20 13:40 95.7 F L 59 L 12 100 Intake and Output 10/04/20 10/05/20 10/05/20 22:59 06:59 14:59 Intake Total 6487.691 9888.179 118.597 Output Total 698 493 50 Balance 156.987 7145.179 68.597 Intake: IV 917.5 1010.0 106 ACETAMINOPHEN IV (For NPO 100 ) 1,000 mg In Empty Bag 1 bag @ 400 mls/hr IVPB Q6H [facility] Rx#:[id number] Albumin Human 5% 500 ml @ 500 Per Protocol IVPB ONCE ONE Rx#:[id number] Diltiazem 125 mg In 15 Sodium Chloride 0.9% 100 ml @ 5 MG/HR 5 mls/hr IV .Q24H [facility] Rx#:[id number] Lactated Ringers 1,000 ml 400 400 50 @ 50 mls/hr IV .Q20H [facility] Rx#:[id number] Magnesium Sulfate-D5w Pmx 300 1 gm In Dextrose/Water 1 100ml.bag @ 100 mls/hr IVPB Q1H [facility] Rx#: [id number] Nitroglycerin-D5w Pmx 50 4.5 12.0 mg In Dextrose/Water 1 250ml.bag @ 5 MCG/MIN 1.5 mls/hr IV .Q24H [facility] Rx#: [id number] Pressure bags 48 48 6 ceFAZolin 2 gm In Sodium 50 50 50 Chloride 0.9% 50 ml @ 100 mls/hr IVPB Q8HR [facility] Rx# :[id number] Intake, IV Titration 68.116 111.179 12.597 Amount Diltiazem 125 mg In 65.083 Sodium Chloride 0.9% 100 ml @ 5 MG/HR 5 mls/hr IV .Q24H [facility] Rx#:[id number] Insulin Regular 100 unit 27.724 26.096 12.597 In Sodium Chloride 0.9% 100 ml @ Per Protocol IV .Q0M [facility] Rx#:[id number] Nitroglycerin-D5w Pmx 50 20 mg In Dextrose/Water 1 250ml.bag @ 5 MCG/MIN 1.5 mls/hr IV .Q24H [facility] Rx#: [id number] propofoL 1,000 mg In 40.392 Empty Bag 1 bag @ Titrate IV .Q0M [facility] Rx#: [id number] Oral 120 480 Output: Chest Tube Drainage 213 220 20 Left Pleural/Mediastinal 213 220 20 Drainage 40 13 Left Wrist 40 13 Urine 445 260 30 Other: Voiding Method Indwelling Catheter Indwelling Catheter Indwelling Catheter Weight 89.7 kg ABP, PAP, CO, CI - Last 8 Hours Arterial Blood Pressure 128/53 Arterial Blood Pressure 136/57 Arterial Blood Pressure 125/60 Arterial Blood Pressure 108/82 Arterial Blood Pressure 105/69 Arterial Blood Pressure 111/72 Arterial Blood Pressure 99/59 Arterial Blood Pressure 61/46 Arterial Blood Pressure 90/64 Arterial Blood Pressure 131/87 Arterial Blood Pressure 142/89 Results 10/05/20 04:20 10/05/20 04:20 Cardiac Enzymes 10/04/20 10/05/20 Range/Units 13:35 04:20 AST 256 H 126 H (14-36) U/L Coagulation 10/04/20 Range/Units 13:35 PT 11.2 (9.0-12.0) sec APTT 24.7 (22.0-30.0) sec CBC 10/04/20 10/04/20 10/04/20 Range/Units 13:35 15:00 18:41 WBC 12.4 H 11.1 H 13.1 H (3.8-10.6) k/uL RBC 3.85 4.04 4.17 (3.80-5.40) m/uL Hgb 11.6 11.9 12.2 (11.4-16.0) gm/dL Hct 33.3 L 34.9 36.2 (34.0-46.0) % Plt Count 134 L 144 L 152 (150-450) k/uL 10/05/20 Range/Units 04:20 WBC 16.1 H (3.8-10.6) k/uL RBC 4.19 (3.80-5.40) m/uL Hgb 12.3 (11.4-16.0) gm/dL Hct 36.9 (34.0-46.0) % Plt Count 167 (150-450) k/uL Comprehensive Metabolic Panel 10/04/20 10/05/20 Range/Units 13:35 04:20 Sodium 135 L 131 L (137-145) mmol/L Potassium 4.0 4.1 (3.5-5.1) mmol/L Chloride 107 103 (98-107) mmol/L Carbon Dioxide 24 22 (22-30) mmol/L BUN 17 16 (7-17) mg/dL Creatinine 0.75 0.68 (0.52-1.04) mg/dL Glucose 142 H 129 H (74-99) mg/dL Calcium 8.3 L 8.4 (8.4-10.2) mg/dL AST 256 H 126 H (14-36) U/L ALT 128 H 142 H (4-34) U/L Alkaline Phosphatase 72 63 (38-126) U/L Total Protein 4.5 L 5.3 L (6.3-8.2) g/dL Albumin 2.6 L 3.1 L (3.5-5.0) g/dL Current Medications Generic Name Dose Route Start Last Admin Trade Name Freq PRN Reason Stop Dose Admin Hydrocodone Bitart/Acetaminophen 2 each 10/04/20 23:25 10/05/20 04:36 Hydrocodone/Apap 5-325mg 1 Each Tab PO 2 each Q4HR PRN Administration Severe Pain Hydrocodone Bitart/Acetaminophen 1 each 10/04/20 23:25 Hydrocodone/Apap 5-325mg 1 Each Tab PO Q4HR PRN Moderate Pain Albuterol/Ipratropium 3 ml 10/04/20 12:57 Ipratropium-Albuterol 3 Ml Neb INHALATION RT-Q2H PRN Shortness Of Breath Or Wheezing Albuterol/Ipratropium 3 ml 10/04/20 17:27 10/05/20 08:12 Ipratropium-Albuterol 3 Ml Neb INHALATION 3 ml RT-QID [facility]NA Administration Amitriptyline HCl 25 mg 10/05/20 21:00 Amitriptyline Hcl 25 Mg Tab PO HS E[facility] Aspirin 325 mg 10/05/20 09:00 10/05/20 08:08 Aspirin 325 Mg Tab PO 325 mg DAILY E[facility] Administration Atorvastatin Calcium 40 mg 10/05/20 09:00 10/05/20 08:09 Atorvastatin 40 Mg Tab PO 40 mg DAILY [facility] Administration Benzocaine/Menthol 1 each 10/04/20 12:57 Benzocaine/Menthol Lozeng 1 Each Lozenge MUCOUS MEM Q2H PRN Sore Throat Bisacodyl 10 mg 10/05/20 09:00 Bisacodyl 10 Mg Supp RECTAL DAILY PRN Constipation Citalopram Hydrobromide 20 mg 10/05/20 09:00 10/05/20 08:09 Citalopram Hydrobromide 20 Mg Tab PO 20 mg DAILY [facility] Administration Clopidogrel Bisulfate 75 mg 10/05/20 09:00 10/05/20 08:09 Clopidogrel 75 Mg Tab PO 75 mg DAILY E[facility] Administration Heparin Sodium (Porcine) 5,000 unit 10/04/20 20:00 10/05/20 04:36 Heparin Sodium,Porcine 5,000 Unit/Ml 1 Ml Vial SQ 5,000 unit Q8H [facility] Administration Amiodarone HCl 150 mg/ 103 mls @ 618 mls/hr 10/04/20 12:57 Dextrose/Water IV .Q10M PRN A.FIB/FLUTTER Protocol Amiodarone HCl 360 mg/ 207.2 mls @ 34.533 mls/hr 10/04/20 12:57 Dextrose/Water IV .Q6H PRN A.FIB/FLUTTER Protocol 1 MG/MIN Amiodarone HCl 450 mg/ 250 mls @ 16.667 mls/hr 10/04/20 12:57 Dextrose/Water IV .Q15H PRN A.FIB/FLUTTER Protocol 0.5 MG/MIN Albumin Human 250 ml/ IV 250 mls @ 250 mls/hr 10/04/20 12:57 10/05/20 06:11 Solution IVPB 10/06/20 12:58 250 mls/hr Q1HR PRN Administration For Volume Diltiazem HCl 125 mg/ Sodium 125 mls @ 5 mls/hr 10/04/20 13:30 03/04/21 23:13 Chloride IV 5 mg/hr .Q24H [facility] 5 mls/hr Administration 5 MG/HR Nitroglycerin/Dextrose 50 mg/ 250 mls @ 1.5 mls/hr 10/04/20 12:57 10/04/20 14:13 IV Solution IV 5 mcg/min .Q24H [facility] 1.5 mls/hr Administration 5 MCG/MIN Lactated Ringer's 1,000 mls @ 50 mls/hr 10/04/20 12:57 10/04/20 14:13 Lactated Ringers IV 50 mls/hr .Q20H [facility] Administration Propofol 1,000 mg/ IV Solution 100 mls @ 0 mls/hr 10/04/20 13:30 10/04/20 16:18 IV 0 mcg/kg/min .Q0M [facility] 0 mls/hr Titration Protocol Titrate Calcium Gluconate 2 gm/ Sodium 120 mls @ 100 mls/hr 10/04/20 12:57 Chloride IVPB 10/11/20 12:58 ONCE PRN Ionized Calcium less than 4.4 Insulin Human Regular 100 unit 101 mls @ 0 mls/hr 10/04/20 12:57 10/05/20 09:16 / Sodium Chloride IV 5.5 units/hr .Q0M [facility] 5.555 mls/hr Titration Protocol Per Protocol Ketorolac Tromethamine 15 mg 10/04/20 18:00 10/05/20 05:30 Ketorolac 15 Mg/Ml 1 Ml Vial IVP 10/07/20 15:55 15 mg Q6HR [facility] Administration Magnesium Hydroxide 2,400 mg 10/05/20 09:00 Magnesium Hydroxide 2,400 Mg/10 Ml Cup PO BID PRN Constipation Metoclopramide HCl 10 mg 10/04/20 12:57 10/04/20 16:50 Metoclopramide 5 Mg/Ml 2 Ml Vial IVP 10 mg Q4H PRN Administration Nausea And Vomiting Metoprolol Tartrate 12.5 mg 10/05/20 09:00 10/05/20 08:09 Metoprolol Tartrate 12.5 Mg Tab PO 12.5 mg BID E[facility]NA Administration Miscellaneous Information 1 each 10/04/20 12:57 Potassium Replacement Protocol 1 Each Misc MISCELLANE DAILY PRN Per Protocol Protocol Miscellaneous Information 1 each 10/04/20 12:57 Magnesium Replacement Protocol 1 Each Misc MISCELLANE DAILY PRN Per Protocol Protocol Miscellaneous Information 1 each 10/04/20 12:57 Phosphorus Replacement Protoco 1 Each Misc MISCELLANE DAILY PRN Per Protocol Protocol Ondansetron HCl 4 mg 10/04/20 12:57 10/05/20 02:02 Ondansetron 4 Mg/2 Ml Vial IVP 4 mg Q6HR PRN Administration Nausea And Vomiting Pantoprazole Sodium 40 mg 10/05/20 09:00 10/05/20 08:09 Pantoprazole 40 Mg/10 Ml Vial IVP 40 mg DAILY [facility]NA Administration Senna/Docusate Sodium 2 each 10/05/20 21:00 Sennosides-Docusate Sodium 1 Each Tab PO HS [facility] Sodium Chloride 10 ml 10/04/20 21:00 10/05/20 08:09 Sodium Chloride 0.9% Flush 10 Ml Syringe IV 10 ml BID [facility]NA Administration Intake and Output 10/04/20 10/05/20 10/05/20 22:59 06:59 14:59 Intake Total 0765.938 5553.179 118.597 Output Total 698 493 50 Balance 965.706 3444.179 68.597 Intake: IV 917.5 1010.0 106 ACETAMINOPHEN IV (For NPO 100 ) 1,000 mg In Empty Bag 1 bag @ 400 mls/hr IVPB Q6H [facility] Rx#:[id number] Albumin Human 5% 500 ml @ 500 Per Protocol IVPB ONCE ONE Rx#:[id number] Diltiazem 125 mg In 15 Sodium Chloride 0.9% 100 ml @ 5 MG/HR 5 mls/hr IV .Q24H [facility] Rx#:[id number] Lactated Ringers 1,000 ml 400 400 50 @ 50 mls/hr IV .Q20H [facility] Rx#:[id number] Magnesium Sulfate-D5w Pmx 300 1 gm In Dextrose/Water 1 100ml.bag @ 100 mls/hr IVPB Q1H [facility] Rx#: [id number] Nitroglycerin-D5w Pmx 50 4.5 12.0 mg In Dextrose/Water 1 250ml.bag @ 5 MCG/MIN 1.5 mls/hr IV .Q24H [facility] Rx#: [id number] Pressure bags 48 48 6 ceFAZolin 2 gm In Sodium 50 50 50 Chloride 0.9% 50 ml @ 100 mls/hr IVPB Q8HR [facility] Rx# :[id number] Intake, IV Titration 68.116 111.179 12.597 Amount Diltiazem 125 mg In 65.083 Sodium Chloride 0.9% 100 ml @ 5 MG/HR 5 mls/hr IV .Q24H [facility] Rx#:[id number] Insulin Regular 100 unit 27.724 26.096 12.597 In Sodium Chloride 0.9% 100 ml @ Per Protocol IV .Q0M [facility] Rx#:[id number] Nitroglycerin-D5w Pmx 50 20 mg In Dextrose/Water 1 250ml.bag @ 5 MCG/MIN 1.5 mls/hr IV .Q24H [facility] Rx#: [id number] propofoL 1,000 mg In 40.392 Empty Bag 1 bag @ Titrate IV .Q0M [facility] Rx#: [id number] Oral 120 480 Output: Chest Tube Drainage 213 220 20 Left Pleural/Mediastinal 213 220 20 Drainage 40 13 Left Wrist 40 13 Urine 445 260 30 Other: Voiding Method Indwelling Catheter Indwelling Catheter Indwelling Catheter Weight 89.7 kg 10/05/20 04:20 10/05/20 04:20
[2020-10-05 10:09] LABS: Glucose,Whole Blood 183 mg/dL (75-99)
--- NOTE | 2020-10-05 10:45 | CDI ---
Documentation Clarification Form Date: 10/05/2020 10:23:37 AM From: Syl ReaGoodmanLUCRECIA, CCDS Admit Date: 10/04/2020 05:38:00 AM Patient Name: Annalise Fletcher Visit Number: [id number] Discharge Date: ATTENTION: The Clinical Documentation Specialists (CDI) and [facility] Coding Staff appreciate your assistance in clarifying documentation. Please respond to the clarification below the line at the bottom and electronically sign. The CDI & [facility] Coding staff will review the response and follow-up if needed. Please note: Queries are made part of the Legal Health Record. If you have any questions, please contact the author of this message via ITS. Dr. Iban Rosales: Per the OR Note on 10/04 the following is documented: "We now exposed the left pulmonary veins. It was at this point that we encountered the persistent left superior vena cava. We're able to encircle the left pulmonary veins and ablated the left atrium at the insertion of the left pulmonary veins with 3 parallel lines. We then performed a single ablation across the persistent left superior vena cava. Was at this point that we were informed that [place]-Jenny catheter was in that vessel. This was a surprise as noted discussed with us the issues and had with cannulation of the right side. At this point the [place] was pulled back and the Cordis was left in the left IJ." Per the 10/04 Pulmonary/Critical Care Consult Note: "The patient was brought back to the intensive care unit for further monitoring. [place]-Jenny catheter was pulled out in the operating room as the patient was found to have a left-sided subclavian and the vessel was ablated intraoperatively and the catheter was removed. As such, no hemodynamic parameters are available." History/Risk Factors per the Scanned Cardiothoracic Consult and the patient's Past Medical History in the 10/04 Pulmonary/Critical Care Medical History: CAD, Atrial Fibrillation, PILLO, Hypertension, Hyperlipidemia, COPD, Current Smoker. Clinical Indicators: Presented 10/04 for Elective CABG secondary to CAD. 10/04 Procedure: Off pump coronary artery bypass grafting 3 with sequential ALVARADO to diagonal and LAD and left radial artery graft to obtuse marginal, bilateral pulmonary vein ablation with ligation of the left atrial appendage. Treatment 10/04: To ICU postoperatively on vent at approx. 13:45, extubated 10/04 @ 17:44 to 4L nc. Meds: IV Insulin, IV Lactated Ringers 1,000 mls @ 50 mls/hr q20H, IV Reglan, IV Nitro drip, IV Zofran, IV Cardizem drip, IV Propofol, IV Tylenol, IV Mag Sulfate, IV Cefazolin, INH Duoneb, IV Toradol, Heparin sq. Based on the clinical evidence and your professional judgment, please clarify the significance of the intraoperative findings of the placement of the [place]- Jenny catheter requiring removal during the procedure: ox Placement and/or Removal of [place]-Jenny intraoperatively is not a complication of the procedure o Placement and/or Removal of [place]-Jenny intraoperatively is a complication of the procedure o Other (please specify diagnosis) o Unable to determine Last Revision: August 2019) MTDD
[2020-10-05 11:53] LABS: Glucose,Whole Blood 138 mg/dL (75-99)
[2020-10-05] MEDS: LACTATED RINGERS 1,000 ML IV SCH (11:56)
--- NOTE | 2020-10-05 12:37 | P.PN ---
Subjective Progress Note Date: 10/05/20 Principal diagnosis: Coronary artery disease. Past medical history significant for atrial fibrillation, dating back to 2014, hypertension, hyperlipidemia, obstructive sleep apnea, and osteoarthritis. POD #1 off-pump coronary artery bypass grafting 3 with sequential ALVARADO to the diagonal coronary artery and left anterior descending coronary artery and left radial artery graft to the obtuse marginal coronary artery. Bilateral pulmonary vein ablation with ligation of the left atrial appendage. The patient is seen and examined at her bedside in the intensive care unit today 10/05/2020. Currently she is sitting up to the bedside chair, is awake, alert and oriented 3. Denies any complaints of shortness of breath or pain at this time. She returned ports that she feels good despite having open heart surgery. She is complaining of a headache, that she feels is related to the nitroglycerin drip. She remained hemodynamically stable and is currently on no unequivocal pressure support. Left IJ Cordis in place with continuous CVP monitoring, current CVP pressures 6 mmHg. Remains on Cardizem drip at 5 mg per hour for radial artery spasm prophylaxis. She was successfully extubated at 5:44 PM yesterday 10/04/2020. Currently her oxygen saturations are 95% on 2 L n kodak cannula and she is achieving 500-750 mL on her incentive spirometry with much encouragement. Mediastinal and left pleural chest tubes remain in place to low continuous wall suction -20 cm H2O. No air leak is present. 220 mL of thin serosanguineous drainage out in the last 8 hours and 450 mL since surgery. Objective - Vital Signs Vital signs: Vital Signs Temp 97.5 F L 10/05/20 08:00 Pulse 68 10/05/20 11:50 Resp 17 10/05/20 11:00 BP 107/60 10/05/20 11:00 Pulse Ox 94 L 10/05/20 11:00 Intake & Output 10/04/20 10/05/20 10/05/20 18:59 06:59 18:59 Intake Total 831.499 2649.003 245.503 Output Total 2285 711 150 Balance -4622.717 6809.003 95.503 Weight 89.7 kg Intake: IV 783 1353.5 218 ACETAMINOPHEN IV (For NPO 100 100 ) 1,000 mg In Empty Bag 1 bag @ 400 mls/hr IVPB Q6H [facility] Rx#:[id number] Albumin Human 5% 500 ml @ 500 Per Protocol IVPB ONCE ONE Rx#:[id number] Diltiazem 125 mg In 15 Sodium Chloride 0.9% 100 ml @ 5 MG/HR 5 mls/hr IV .Q24H [facility] Rx#:[id number] Lactated Ringers 1,000 ml 250 600 150 @ 50 mls/hr IV .Q20H [facility] Rx#:[id number] Magnesium Sulfate-D5w Pmx 300 1 gm In Dextrose/Water 1 100ml.bag @ 100 mls/hr IVPB Q1H [facility] Rx#: [id number] Nitroglycerin-D5w Pmx 50 16.5 mg In Dextrose/Water 1 250ml.bag @ 5 MCG/MIN 1.5 mls/hr IV .Q24H [facility] Rx#: [id number] Pressure bags 30 72 18 ceFAZolin 2 gm In Sodium 50 50 50 Chloride 0.9% 50 ml @ 100 mls/hr IVPB Q8HR [facility] Rx# :[id number] Intake, IV Titration 48.792 130.503 27.503 Amount Diltiazem 125 mg In 65.083 Sodium Chloride 0.9% 100 ml @ 5 MG/HR 5 mls/hr IV .Q24H [facility] Rx#:[id number] Insulin Regular 100 unit 8.400 45.420 27.503 In Sodium Chloride 0.9% 100 ml @ Per Protocol IV .Q0M [facility] Rx#:[id number] Nitroglycerin-D5w Pmx 50 20 mg In Dextrose/Water 1 250ml.bag @ 5 MCG/MIN 1.5 mls/hr IV .Q24H [facility] Rx#: [id number] propofoL 1,000 mg In 40.392 Empty Bag 1 bag @ Titrate IV .Q0M [facility] Rx#: [id number] Oral 600 Output: Chest Tube Drainage 130 318 60 Left Pleural/Mediastinal 130 318 60 Drainage 40 13 Left Wrist 40 13 Urine 1115 380 90 Estimated Blood Loss 1000 Other: Voiding Method Indwelling Catheter Indwelling Catheter Indwelling Catheter ABP, PAP, CO, CI - Last Documented Arterial Blood Pressure 131/56 - Constitutional General appearance: Present: cooperative, no acute distress, obese - EENT Eyes: Present: normal appearance. Absent: scleral icterus ENT: Present: hearing grossly normal - Neck Details: Neck is supple, no JVD, left IJ Cordis in place and functioning. - Respiratory Details: Lungs sounds essentially clear throughout, diminished bilateral bases. No wheezes, rhonchi or crackles. Respirations are symmetrical and nonlabored. Oxygen saturation are 95% on 2 L nasal cannula. Achieving 500-750 mL on her incentive spirometry. Mediastinal and left pleural chest tubes remain in place to low continuous wall suction -20 cm H2O. No air leak is present. 220 mL of thin serosanguineous drainage out in the last 8 hours and 450 mL since surgery. - Cardiovascular Details: Regular rhythm and rate. S1 and S2 present, negative for S3, gallop or murmur. Sternum is stable. Bedside telemetry showing normal sinus rhythm heart rate 66 BPM. Heart hugger is in place and she is demonstrating appropriate use. Knee- high MILDRED hose and sequential compression devices in place to bilateral lower extremities. Left IJ Cordis in place with continuous CVP monitoring, current CVP pressure 6 mmHg. Cardizem drip infusing at 5 mg per hour for radial artery spasm prophylaxis. - Gastrointestinal Gastrointestinal Comment(s): Abdomen is soft, nontender and nondistended. Hypoactive bowel sounds present in all 4 abdominal quadrants. No guarding or rigidity. No organomegaly appreciated. Tolerating oral intake. - Genitourinary Genitourinary Comment(s): Nguyen catheter for accurate I&O. Draining clear yellow urine with 260 mL output in the last 8 hours. - Integumentary Integumentary Comment(s): Skin is warm and dry. No clubbing or cyanosis is present. Midline sternal incision is clean, dry and approximated. No drainage or redness is present. Gauze dressing is clean and dry. Left arm radial artery harvest sites clean, dry and approximated. No drainage or redness is present. BELLE drain in place with scant serosanguineous drainage. - Neurologic Neurologic: Present: CNII-XII intact. Absent: focal deficits - Musculoskeletal Musculoskeletal: Present: gait normal, generalized weakness, strength equal bilaterally - Psychiatric Psychiatric: Present: A&O x's 3, appropriate affect, intact judgment & insight - Allied health notes Allied health notes reviewed: nursing - Labs CBC & Chem 7: 10/05/20 04:20 10/05/20 04:20 Labs: Abnormal Lab Results - Last 24 Hours (Table) 09/27/20 10/04/20 10/04/20 Range/Units 09:00 08:40 09:56 WBC (3.8-10.6) k/uL Hct (34.0-46.0) % Plt Count (150-450) k/uL Neutrophils # (1.3-7.7) k/uL Lymphocytes # (1.0-4.8) k/uL ABG pH (7.35-7.45) ABG pCO2 (35-45) mmHg ABG pO2 211 H 201 H (83-108) mmHg ABG Total CO2 26 H 26 H (19-24) mmol/L ABG O2 Saturation 99.7 H 99.7 H (94-97) % ABG Ionized Calcium (4.5-5.3) mg/dL ABG Glucose 126 H 134 H (75-99) mg/dL Hemoglobin (11.4-16.0) gm/dL Sodium (137-145) mmol/L Glucose (74-99) mg/dL POC Glucose (mg/dL) (75-99) mg/dL Calcium (8.4-10.2) mg/dL Ionized Calcium Frieda (4.5-5.3) mg/dL Magnesium (1.6-2.3) mg/dL AST (14-36) U/L ALT (4-34) U/L Total Protein (6.3-8.2) g/dL Albumin (3.5-5.0) g/dL Arterial Blood Glucose 126 H 134 H (75-99) mg/dL Crossmatch See Detail 10/04/20 10/04/20 10/04/20 Range/Units 10:34 11:21 11:56 WBC (3.8-10.6) k/uL Hct (34.0-46.0) % Plt Count (150-450) k/uL Neutrophils # (1.3-7.7) k/uL Lymphocytes # (1.0-4.8) k/uL ABG pH (7.35-7.45) ABG pCO2 (35-45) mmHg ABG pO2 202 H 173 H 175 H (83-108) mmHg ABG Total CO2 26 H 25 H 25 H (19-24) mmol/L ABG O2 Saturation 99.8 H 99.7 H 99.8 H (94-97) % ABG Ionized Calcium 4.4 L 4.4 L (4.5-5.3) mg/dL ABG Glucose 145 H 159 H 164 H (75-99) mg/dL Hemoglobin 11.2 L (11.4-16.0) gm/dL Sodium (137-145) mmol/L Glucose (74-99) mg/dL POC Glucose (mg/dL) (75-99) mg/dL Calcium (8.4-10.2) mg/dL Ionized Calcium Frieda (4.5-5.3) mg/dL Magnesium (1.6-2.3) mg/dL AST (14-36) U/L ALT (4-34) U/L Total Protein (6.3-8.2) g/dL Albumin (3.5-5.0) g/dL Arterial Blood Glucose 145 H 159 H 164 H (75-99) mg/dL Crossmatch 10/04/20 10/04/20 10/04/20 Range/Units 13:35 13:35 13:44 WBC 12.4 H (3.8-10.6) k/uL Hct 33.3 L (34.0-46.0) % Plt Count 134 L (150-450) k/uL Neutrophils # 10.3 H (1.3-7.7) k/uL Lymphocytes # (1.0-4.8) k/uL ABG pH (7.35-7.45) ABG pCO2 (35-45) mmHg ABG pO2 (83-108) mmHg ABG Total CO2 (19-24) mmol/L ABG O2 Saturation (94-97) % ABG Ionized Calcium (4.5-5.3) mg/dL ABG Glucose (75-99) mg/dL Hemoglobin (11.4-16.0) gm/dL Sodium 135 L (137-145) mmol/L Glucose 142 H (74-99) mg/dL POC Glucose (mg/dL) 146 H (75-99) mg/dL Calcium 8.3 L (8.4-10.2) mg/dL Ionized Calcium Frieda 5.4 H (4.5-5.3) mg/dL Magnesium 1.4 L (1.6-2.3) mg/dL AST 256 H (14-36) U/L ALT 128 H (4-34) U/L Total Protein 4.5 L (6.3-8.2) g/dL Albumin 2.6 L (3.5-5.0) g/dL Arterial Blood Glucose (75-99) mg/dL Crossmatch 10/04/20 10/04/20 10/04/20 Range/Units 14:05 14:09 15:00 WBC 11.1 H (3.8-10.6) k/uL Hct (34.0-46.0) % Plt Count 144 L (150-450) k/uL Neutrophils # 9.4 H (1.3-7.7) k/uL Lymphocytes # (1.0-4.8) k/uL ABG pH 7.28 L (7.35-7.45) ABG pCO2 51 H (35-45) mmHg ABG pO2 169 H (83-108) mmHg ABG Total CO2 26 H (19-24) mmol/L ABG O2 Saturation 99.9 H (94-97) % ABG Ionized Calcium (4.5-5.3) mg/dL ABG Glucose (75-99) mg/dL Hemoglobin (11.4-16.0) gm/dL Sodium (137-145) mmol/L Glucose (74-99) mg/dL POC Glucose (mg/dL) 143 H (75-99) mg/dL Calcium (8.4-10.2) mg/dL Ionized Calcium Frieda (4.5-5.3) mg/dL Magnesium (1.6-2.3) mg/dL AST (14-36) U/L ALT (4-34) U/L Total Protein (6.3-8.2) g/dL Albumin (3.5-5.0) g/dL Arterial Blood Glucose (75-99) mg/dL Crossmatch 10/04/20 10/04/20 10/04/20 Range/Units 15:07 16:15 17:08 WBC (3.8-10.6) k/uL Hct (34.0-46.0) % Plt Count (150-450) k/uL Neutrophils # (1.3-7.7) k/uL Lymphocytes # (1.0-4.8) k/uL ABG pH (7.35-7.45) ABG pCO2 (35-45) mmHg ABG pO2 (83-108) mmHg ABG Total CO2 (19-24) mmol/L ABG O2 Saturation (94-97) % ABG Ionized Calcium (4.5-5.3) mg/dL ABG Glucose (75-99) mg/dL Hemoglobin (11.4-16.0) gm/dL Sodium (137-145) mmol/L Glucose (74-99) mg/dL POC Glucose (mg/dL) 142 H 148 H 167 H (75-99) mg/dL Calcium (8.4-10.2) mg/dL Ionized Calcium Frieda (4.5-5.3) mg/dL Magnesium (1.6-2.3) mg/dL AST (14-36) U/L ALT (4-34) U/L Total Protein (6.3-8.2) g/dL Albumin (3.5-5.0) g/dL Arterial Blood Glucose (75-99) mg/dL Crossmatch 10/04/20 10/04/20 10/04/20 Range/Units 17:37 18:10 18:41 WBC 13.1 H (3.8-10.6) k/uL Hct (34.0-46.0) % Plt Count (150-450) k/uL Neutrophils # 11.4 H (1.3-7.7) k/uL Lymphocytes # (1.0-4.8) k/uL ABG pH 7.31 L (7.35-7.45) ABG pCO2 47 H (35-45) mmHg ABG pO2 117 H (83-108) mmHg ABG Total CO2 25 H (19-24) mmol/L ABG O2 Saturation 98.1 H (94-97) % ABG Ionized Calcium (4.5-5.3) mg/dL ABG Glucose (75-99) mg/dL Hemoglobin (11.4-16.0) gm/dL Sodium (137-145) mmol/L Glucose (74-99) mg/dL POC Glucose (mg/dL) 160 H (75-99) mg/dL Calcium (8.4-10.2) mg/dL Ionized Calcium Frieda (4.5-5.3) mg/dL Magnesium (1.6-2.3) mg/dL AST (14-36) U/L ALT (4-34) U/L Total Protein (6.3-8.2) g/dL Albumin (3.5-5.0) g/dL Arterial Blood Glucose (75-99) mg/dL Crossmatch 10/04/20 10/04/20 10/04/20 Range/Units 19:00 20:16 21:10 WBC (3.8-10.6) k/uL Hct (34.0-46.0) % Plt Count (150-450) k/uL Neutrophils # (1.3-7.7) k/uL Lymphocytes # (1.0-4.8) k/uL ABG pH (7.35-7.45) ABG pCO2 (35-45) mmHg ABG pO2 (83-108) mmHg ABG Total CO2 (19-24) mmol/L ABG O2 Saturation (94-97) % ABG Ionized Calcium (4.5-5.3) mg/dL ABG Glucose (75-99) mg/dL Hemoglobin (11.4-16.0) gm/dL Sodium (137-145) mmol/L Glucose (74-99) mg/dL POC Glucose (mg/dL) 162 H 150 H 141 H (75-99) mg/dL Calcium (8.4-10.2) mg/dL Ionized Calcium Frieda (4.5-5.3) mg/dL Magnesium (1.6-2.3) mg/dL AST (14-36) U/L ALT (4-34) U/L Total Protein (6.3-8.2) g/dL Albumin (3.5-5.0) g/dL Arterial Blood Glucose (75-99) mg/dL Crossmatch 10/04/20 10/04/20 10/05/20 Range/Units 22:09 23:10 00:13 WBC (3.8-10.6) k/uL Hct (34.0-46.0) % Plt Count (150-450) k/uL Neutrophils # (1.3-7.7) k/uL Lymphocytes # (1.0-4.8) k/uL ABG pH (7.35-7.45) ABG pCO2 (35-45) mmHg ABG pO2 (83-108) mmHg ABG Total CO2 (19-24) mmol/L ABG O2 Saturation (94-97) % ABG Ionized Calcium (4.5-5.3) mg/dL ABG Glucose (75-99) mg/dL Hemoglobin (11.4-16.0) gm/dL Sodium (137-145) mmol/L Glucose (74-99) mg/dL POC Glucose (mg/dL) 130 H 124 H 109 H (75-99) mg/dL Calcium (8.4-10.2) mg/dL Ionized Calcium Frieda (4.5-5.3) mg/dL Magnesium (1.6-2.3) mg/dL AST (14-36) U/L ALT (4-34) U/L Total Protein (6.3-8.2) g/dL Albumin (3.5-5.0) g/dL Arterial Blood Glucose (75-99) mg/dL Crossmatch 10/05/20 10/05/20 10/05/20 Range/Units 01:14 02:09 03:10 WBC (3.8-10.6) k/uL Hct (34.0-46.0) % Plt Count (150-450) k/uL Neutrophils # (1.3-7.7) k/uL Lymphocytes # (1.0-4.8) k/uL ABG pH (7.35-7.45) ABG pCO2 (35-45) mmHg ABG pO2 (83-108) mmHg ABG Total CO2 (19-24) mmol/L ABG O2 Saturation (94-97) % ABG Ionized Calcium (4.5-5.3) mg/dL ABG Glucose (75-99) mg/dL Hemoglobin (11.4-16.0) gm/dL Sodium (137-145) mmol/L Glucose (74-99) mg/dL POC Glucose (mg/dL) 138 H 145 H 140 H (75-99) mg/dL Calcium (8.4-10.2) mg/dL Ionized Calcium Frieda (4.5-5.3) mg/dL Magnesium (1.6-2.3) mg/dL AST (14-36) U/L ALT (4-34) U/L Total Protein (6.3-8.2) g/dL Albumin (3.5-5.0) g/dL Arterial Blood Glucose (75-99) mg/dL Crossmatch 10/05/20 10/05/20 10/05/20 Range/Units 04:20 04:20 04:20 WBC 16.1 H (3.8-10.6) k/uL Hct (34.0-46.0) % Plt Count (150-450) k/uL Neutrophils # 14.2 H (1.3-7.7) k/uL Lymphocytes # 0.9 L (1.0-4.8) k/uL ABG pH (7.35-7.45) ABG pCO2 (35-45) mmHg ABG pO2 (83-108) mmHg ABG Total CO2 (19-24) mmol/L ABG O2 Saturation (94-97) % ABG Ionized Calcium (4.5-5.3) mg/dL ABG Glucose (75-99) mg/dL Hemoglobin (11.4-16.0) gm/dL Sodium 131 L (137-145) mmol/L Glucose 129 H (74-99) mg/dL POC Glucose (mg/dL) 131 H (75-99) mg/dL Calcium (8.4-10.2) mg/dL Ionized Calcium Frieda (4.5-5.3) mg/dL Magnesium (1.6-2.3) mg/dL AST 126 H (14-36) U/L ALT 142 H (4-34) U/L Total Protein 5.3 L (6.3-8.2) g/dL Albumin 3.1 L (3.5-5.0) g/dL Arterial Blood Glucose (75-99) mg/dL Crossmatch 10/05/20 10/05/20 10/05/20 Range/Units 05:04 06:18 07:04 WBC (3.8-10.6) k/uL Hct (34.0-46.0) % Plt Count (150-450) k/uL Neutrophils # (1.3-7.7) k/uL Lymphocytes # (1.0-4.8) k/uL ABG pH (7.35-7.45) ABG pCO2 (35-45) mmHg ABG pO2 (83-108) mmHg ABG Total CO2 (19-24) mmol/L ABG O2 Saturation (94-97) % ABG Ionized Calcium (4.5-5.3) mg/dL ABG Glucose (75-99) mg/dL Hemoglobin (11.4-16.0) gm/dL Sodium (137-145) mmol/L Glucose (74-99) mg/dL POC Glucose (mg/dL) 121 H 135 H 140 H (75-99) mg/dL Calcium (8.4-10.2) mg/dL Ionized Calcium Frieda (4.5-5.3) mg/dL Magnesium (1.6-2.3) mg/dL AST (14-36) U/L ALT (4-34) U/L Total Protein (6.3-8.2) g/dL Albumin (3.5-5.0) g/dL Arterial Blood Glucose (75-99) mg/dL Crossmatch 10/05/20 10/05/20 10/05/20 Range/Units 08:06 09:09 10:07 WBC (3.8-10.6) k/uL Hct (34.0-46.0) % Plt Count (150-450) k/uL Neutrophils # (1.3-7.7) k/uL Lymphocytes # (1.0-4.8) k/uL ABG pH (7.35-7.45) ABG pCO2 (35-45) mmHg ABG pO2 (83-108) mmHg ABG Total CO2 (19-24) mmol/L ABG O2 Saturation (94-97) % ABG Ionized Calcium (4.5-5.3) mg/dL ABG Glucose (75-99) mg/dL Hemoglobin (11.4-16.0) gm/dL Sodium (137-145) mmol/L Glucose (74-99) mg/dL POC Glucose (mg/dL) 178 H 195 H 183 H (75-99) mg/dL Calcium (8.4-10.2) mg/dL Ionized Calcium Frieda (4.5-5.3) mg/dL Magnesium (1.6-2.3) mg/dL AST (14-36) U/L ALT (4-34) U/L Total Protein (6.3-8.2) g/dL Albumin (3.5-5.0) g/dL Arterial Blood Glucose (75-99) mg/dL Crossmatch 10/05/20 Range/Units 11:51 WBC (3.8-10.6) k/uL Hct (34.0-46.0) % Plt Count (150-450) k/uL Neutrophils # (1.3-7.7) k/uL Lymphocytes # (1.0-4.8) k/uL ABG pH (7.35-7.45) ABG pCO2 (35-45) mmHg ABG pO2 (83-108) mmHg ABG Total CO2 (19-24) mmol/L ABG O2 Saturation (94-97) % ABG Ionized Calcium (4.5-5.3) mg/dL ABG Glucose (75-99) mg/dL Hemoglobin (11.4-16.0) gm/dL Sodium (137-145) mmol/L Glucose (74-99) mg/dL POC Glucose (mg/dL) 138 H (75-99) mg/dL Calcium (8.4-10.2) mg/dL Ionized Calcium Frieda (4.5-5.3) mg/dL Magnesium (1.6-2.3) mg/dL AST (14-36) U/L ALT (4-34) U/L Total Protein (6.3-8.2) g/dL Albumin (3.5-5.0) g/dL Arterial Blood Glucose (75-99) mg/dL Crossmatch - Imaging and Cardiology Chest x-ray: report reviewed, image reviewed Assessment and Plan Assessment: 1. Coronary artery disease, status post three-vessel off pump coronary artery bypass grafting surgery 2. History of paroxysmal atrial fibrillation, status post bilateral pulmonary vein ablation and ligation of the left atrial appendage 3. History of hypertension 4. History of hyperlipidemia 5. History of obstructive sleep apnea 6. Osteoarthritis Plan: 1. Continue aspirin, statin, Plavix, and beta reggie. Will increase metoprolol tartrate as tolerated, currently on metoprolol tartrate 12.5 mg by mouth twice a day. 2. Wean O2 as tolerated. Encourage incentive spirometry use 10 times every hour while awake. Bronchodilators per pulmonary/critical care medicine. 3. Increase activity, ambulate as tolerated. PT/OT/cardiac rehab consulted. 4. Risk factor modification discussed, continue to encourage smoking cessation 5. Will monitor daily labs and chest x-rays. Electrolyte replacement per protocol. 6. Pain control current when necessary medication regimen. Toradol 15 mg IVP every 6 hours added to pain management regimen. 7. GI/DVT prophylaxis. 8. Insulin management per primary care service. Patient is not a diabetic, preoperative hemoglobin A1c 6.0 % 9. Continue cordis to continuous CVP monitoring. 10. Will continue mediastinal and left pleural chest tubes for another 24 hours. 11. Continue Nguyen for another 24 hours. Strict accurate intake and output. Daily weight. 12. We will start Norvasc 2.5 mg by mouth daily at noon for radial artery spasm prophylaxis. Discontinue Cardizem drip. 13. Discontinue nitroglycerin drip. 14. More recommendations to follow based on patient's clinical course. Time with Patient: Greater than 30
[2020-10-05] MEDS ORDERED: DILTIAZEM ORAL 30 MG TAB PO SCH (13:00)
[2020-10-05] MEDS: amLODIPine 2.5 MG TAB PO SCH (13:11)
[2020-10-05 14:18] LABS: Glucose,Whole Blood 142 mg/dL (75-99)
[2020-10-05 15:14] LABS: Glucose,Whole Blood 110 mg/dL (75-99)
[2020-10-05 16:12] LABS: Glucose,Whole Blood 136 mg/dL (75-99)
[2020-10-05] MEDS: INSULIN REGULAR 100 UNIT in SODIUM CHLORIDE 0.9% 100 ML IV SCH ×2 (16:14→20:06)
[2020-10-05 17:00] LABS: Glucose,Whole Blood 99 mg/dL (75-99)
--- NOTE | 2020-10-05 17:10 | P.CON ---
Consult Note - . Consult date: 10/05/20 Assessment/Plan:: Medical management consult 65-year-old female underwent coronary artery bypass surgery. Patient has known history of coronary artery disease, history of atrial fibrillation, hypertension, hyperlipidemia, COPD, and obesity. Patient was evaluated this a.m. postop day one patient resting comfortably in chair. Patient has present mediastinal and left pleural chest tubes. Radial arterial line present blood pressure stable. Patient continues to be on Cardizem drip at 5 mg/hr IV. GP drain present in the left upper extremity with scant output. Labs and diagnostics reviewed. Assessment and plan Multivessel coronary artery disease status post coronary artery bypass obstructive sleep apnea hypertension hyperlipidemia osteoarthritis COPD Plan continue to monitor vital signs and diagnostic labs and imaging studies encouraged use of incentives spirometer continue medical management as needed basis continue to follow treatment plan of cardiothoracic and pulmonary critical care and cardiology
[2020-10-05 19:04] LABS: Glucose,Whole Blood 166 mg/dL (75-99)
[2020-10-05 20:09] LABS: Glucose,Whole Blood 135 mg/dL (75-99)
[2020-10-05] MEDS: SENNOSIDES-DOCUSATE SODIUM 1 EACH TAB PO SCH (20:26)
[2020-10-05] MEDS: AMITRIPTYLINE HCL 25 MG TAB PO SCH (20:26)
[2020-10-05 21:06] LABS: Glucose,Whole Blood 105 mg/dL (75-99)
[2020-10-05 22:14] LABS: Glucose,Whole Blood 142 mg/dL (75-99)
[2020-10-05 23:08] LABS: Glucose,Whole Blood 133 mg/dL (75-99)
[2020-10-06 00:19] LABS: Glucose,Whole Blood 103 mg/dL (75-99)
[2020-10-06] MEDS: KETOROLAC 15 MG/ML 1 ML VIAL IVP SCH ×4 (00:23→17:12)
[2020-10-06 02:16] LABS: Glucose,Whole Blood 128 mg/dL (75-99)
[2020-10-06 03:15] LABS: Glucose,Whole Blood 114 mg/dL (75-99)
[2020-10-06] MEDS: HEPARIN SODIUM,PORCINE 5,000 UNIT/ML 1 ML VIAL SQ SCH ×3 (04:10→20:41)
[2020-10-06 04:18] LABS: Glucose,Whole Blood 121 mg/dL (75-99)
[2020-10-06 04:57] LABS: Basophils % (A) 0 %; Eosinophils # (A) 0.1 k/uL (0-0.7); Eosinophils % (A) 1 %; HCT 31.3 % (34.0-46.0); HGB 10.4 gm/dL (11.4-16.0); Lymphocytes # (A) 1.9 k/uL (1.0-4.8); Lymphocytes % (A) 15 %; MCHC 33.2 g/dL (31.0-37.0); MCV 87.5 fL (80.0-100.0); Mean Platelet Volume 9.2; Monocytes # (A) 0.7 k/uL (0-1.0); Monocytes % (A) 5 %; Neutrophils # (A) 9.4 k/uL (1.3-7.7); Neutrophils % (A) 77 %; Platelet Count 149 k/uL (150-450); RBC 3.57 m/uL (3.80-5.40); RDW 13.3 % (11.5-15.5); WBC 12.2 k/uL (3.8-10.6)
[2020-10-06 05:26] LABS: Glucose,Whole Blood 116 mg/dL (75-99)
[2020-10-06 05:42] LABS: Ionized Calcium 5.2 mg/dL (4.5-5.3)
[2020-10-06 06:11] LABS: Albumin 2.7 g/dL (3.5-5.0); Calcium 8.1 mg/dL (8.4-10.2); Potassium 4.2 mmol/L (3.5-5.1); Total Bilirubin 0.9 mg/dL (0.2-1.3); Total Protein 4.9 g/dL (6.3-8.2)
[2020-10-06 06:12] LABS: Glucose,Whole Blood 113 mg/dL (75-99)
[2020-10-06] MEDS: HYDROcodone/APAP 5-325MG 1 EACH TAB PO PRN (06:15)
[2020-10-06 07:16] LABS: Glucose,Whole Blood 136 mg/dL (75-99)
--- NOTE | 2020-10-06 07:30 | P.PN ---
Subjective Progress Note Date: 10/06/20 65-year-old female patient underwent coronary artery bypass surgery. The patie nt is known to have coronary artery disease and previous history of atrial fibrillation. Recently, the patient was having complaints of worsening shortness of breath. She had a positive cardiac stress test. Cardiac catheterization revealed disease involving the left main coronary artery with severe stenosis in the circumflex and LAD. There was mild disease involving the RCA. Based on that, the patient was taken to the operating room and the patient underwent off-pump ALVARADO to LAD and radial to to OM.. The patient was brought back to the intensive care unit for further monitoring. Arbela-Jenny catheter was pulled out and operating room as the patient was found to have a left-sided subclavian and the vessel was ablated intraoperatively and the catheter was removed. As such, no hemodynamic parameters are available. She has an A-line in her right radial. Her blood pressure is adequate for now and she is on no pressors. She is on a Cardizem drip at 5 mg an hour and she is on a low dose nitroglycerin drip. The patient is currently on assist control mode at the rate of 10 with a tidal volume of 400 FiO2 of 50% with a PEEP of 5. Output from the chest tube has been minimal since the patient up from the operating room in the order of 30 mL and and there is no evidence of any air leak. All of the tubes are in good location based on the chest x-ray. The blood gas showed a pH of 7.28 with a pCO2 of 51 and pO2 of 169. FiO2 was up to 50% and I further increased the rate up to 20. She has an adequate urine output. She is currently on propofol. Postoperative hemoglobin is 11.9. Is evaluation of 10/05/2020, seeing the patient for a follow-up. Note that the patient was extubated yesterday without any major difficulties and she did very well post extubation she is currently on oxygen at 4 L per minute nasal cannula. Incentive spirometer and she is calm and comfortable. The patient has a mediastinal and the left pleural chest tube and output has been in the order of 300 mL over the past 12 hours. Output is serosanguineous. She also has a BELLE drain in the left upper extremity and output is scant for now. She is on drips and she is on a Cardizem drip arriving at 5 mg an hour and an insulin drip running at 1.5 units an hour which was increased up to 4.0 units an hour overnight. The nitroglycerin drip is off for now. The chest x-ray from today was reviewed and the patient is adequate expansion of both lungs and there is no evidence of any pneumothorax. Sternum stable clean and intact on examination. On today's chest x-ray there is some atelectatic changes in the left lung base. No signs of any effusion. She was able to use the incentive spirometer and she is pulling approximately 500 mL. No active pain issues. Hemoglobin is at 12.3. Function stable. LFTs are down trending. She is afebrile. The neck fluid balance over the past 24 hours is -80 disease. She is on no pressors for now. Meanwhile, the patient is on aspirin 325 mg by mouth daily, she is also on Plavix 75 mg by mouth daily, she was started on metoprolol 12.5 mg by mouth twic e a day and Cardizem drip is running at 5 mg an hour. She is communicating. No focal neurological deficit at this point in time. 2020 the patient is sitting up on a chair tolerating her diet. The chest x-ray from today shows postsurgical changes and the 2 chest tubes are still in place including a mediastinal and the left pleural chest tube. Output has been 70 mL over the past 8 hours and a total of 150 mL over the past 24 hours. Output is serosanguineous. She is using incentive spirometer. She is producing adequate amount of urine output. She is on oxygen at 2 L and the pulse ox is 95%. Afebrile. Cardiac rhythm is sinus.. That hemoglobin is at 10.4 with a white cell count of 12.2. The patient is on aspirin, Plavix, she is also on and the Cardizem drip has been discontinued yesterday. She is on amlodipine 2.5 mg for blood pressure control pH is on [place] for pain control. Outpatient medications including citalopram is resume. She has been taking also atenolol 25 mg on outpatient basis and she was on anticoagulation outpatient basis regarding proximal atrial fibrillation and for now she is not taking any anticoagulation.the patient is also off insulin drip.patient has a BELLE drain in the left upper extremity and output is scant. She has a Cordis in the left neck . She still has an arterial line. Objective - Vital Signs Vital signs: Vital Signs Temp 98.5 F 10/06/20 04:00 Pulse 90 10/06/20 06:00 Resp 21 10/06/20 06:00 BP 107/71 10/06/20 06:00 Pulse Ox 98 10/06/20 06:00 Intake & Output 10/05/20 10/06/20 10/06/20 18:59 06:59 18:59 Intake Total 658.333 710.415 26 Output Total 675 815 20 Balance -16.667 -104.585 6 Weight 89.7 kg 91.9 kg Intake: IV 616 432 26 Lactated Ringers 1,000 ml 500 360 20 @ 20 mls/hr IV .Q24H ELANA Rx#:[id number] Pressure bags 66 72 6 ceFAZolin 2 gm In Sodium 50 Chloride 0.9% 50 ml @ 100 mls/hr IVPB Q8HR ELANA Rx# :[id number] Intake, IV Titration 42.333 18.415 Amount Insulin Regular 100 unit 42.333 18.415 In Sodium Chloride 0.9% 100 ml @ Per Protocol IV .Q0M ELANA Rx#:[id number] Oral 260 Output: Chest Tube Drainage 190 140 Left Pleural/Mediastinal 190 140 Drainage 10 Left Wrist 10 Urine 485 665 20 Other: Voiding Method Indwelling Catheter Indwelling Catheter ABP, PAP, CO, CI - Last Documented Arterial Blood Pressure 116/49 - Exam The patient is postop thoracotomy, patient is awake and alert and she is currently on 2 L by nasal cannula. Head exam was generally normal. There was no scleral icterus or corneal arcus. Mucous membranes were moist. Neck was supple and without jugular venous distension, thyromegaly, or carotid bruits. Carotids were easily palpable bilaterally. There was no adenopathy. Lungs sounds are diminished and the patient has a left pleural and Bystolic chest tube. Surgical wound site is dry clean and intact. Breath sounds are equal and symmetrical and there is no wheezing or rhonchi any crackles. Cardiac exam revealed the PMI to be normally situated and sized. The rhythm was regular and no extrasystoles were noted during several minutes of auscultation. The first and second heart sounds were normal and physiologic splitting of the second heart sound was noted. There were no murmurs, rubs, clicks, or gallops. Abdominal exam revealed normal bowel sounds. The abdomen was soft, non-tender, and without masses, organomegaly, or appreciable enlargement of the abdominal aorta. Examination of the extremities revealed easily palpable radial, femoral and pedal pulses. There was no cyanosis, clubbing or edema. Surgical wound site over the left radial area and the left upper extremity is dry clean and intact. There is also BELLE drain in place with scant serosanguineous/bloody output. Neurologically awake and alert and there is no focal neurological deficits for now. She is awake and oriented 3. - Labs CBC & Chem 7: 10/06/20 04:12 10/06/20 04:12 Labs: Abnormal Lab Results - Last 24 Hours (Table) 10/05/20 10/05/20 10/05/20 Range/Units 08:06 09:09 10:07 WBC (3.8-10.6) k/uL RBC (3.80-5.40) m/uL Hgb (11.4-16.0) gm/dL Hct (34.0-46.0) % Plt Count (150-450) k/uL Neutrophils # (1.3-7.7) k/uL Sodium (137-145) mmol/L Glucose (74-99) mg/dL POC Glucose (mg/dL) 178 H 195 H 183 H (75-99) mg/dL Calcium (8.4-10.2) mg/dL AST (14-36) U/L ALT (4-34) U/L Total Protein (6.3-8.2) g/dL Albumin (3.5-5.0) g/dL 10/05/20 10/05/20 10/05/20 Range/Units 11:51 14:17 15:12 WBC (3.8-10.6) k/uL RBC (3.80-5.40) m/uL Hgb (11.4-16.0) gm/dL Hct (34.0-46.0) % Plt Count (150-450) k/uL Neutrophils # (1.3-7.7) k/uL Sodium (137-145) mmol/L Glucose (74-99) mg/dL POC Glucose (mg/dL) 138 H 142 H 110 H (75-99) mg/dL Calcium (8.4-10.2) mg/dL AST (14-36) U/L ALT (4-34) U/L Total Protein (6.3-8.2) g/dL Albumin (3.5-5.0) g/dL 10/05/20 10/05/20 10/05/20 Range/Units 16:10 19:03 20:04 WBC (3.8-10.6) k/uL RBC (3.80-5.40) m/uL Hgb (11.4-16.0) gm/dL Hct (34.0-46.0) % Plt Count (150-450) k/uL Neutrophils # (1.3-7.7) k/uL Sodium (137-145) mmol/L Glucose (74-99) mg/dL POC Glucose (mg/dL) 136 H 166 H 135 H (75-99) mg/dL Calcium (8.4-10.2) mg/dL AST (14-36) U/L ALT (4-34) U/L Total Protein (6.3-8.2) g/dL Albumin (3.5-5.0) g/dL 10/05/20 10/05/20 10/05/20 Range/Units 21:04 22:11 23:00 WBC (3.8-10.6) k/uL RBC (3.80-5.40) m/uL Hgb (11.4-16.0) gm/dL Hct (34.0-46.0) % Plt Count (150-450) k/uL Neutrophils # (1.3-7.7) k/uL Sodium (137-145) mmol/L Glucose (74-99) mg/dL POC Glucose (mg/dL) 105 H 142 H 133 H (75-99) mg/dL Calcium (8.4-10.2) mg/dL AST (14-36) U/L ALT (4-34) U/L Total Protein (6.3-8.2) g/dL Albumin (3.5-5.0) g/dL 10/06/20 10/06/20 10/06/20 Range/Units 00:16 02:12 03:13 WBC (3.8-10.6) k/uL RBC (3.80-5.40) m/uL Hgb (11.4-16.0) gm/dL Hct (34.0-46.0) % Plt Count (150-450) k/uL Neutrophils # (1.3-7.7) k/uL Sodium (137-145) mmol/L Glucose (74-99) mg/dL POC Glucose (mg/dL) 103 H 128 H 114 H (75-99) mg/dL Calcium (8.4-10.2) mg/dL AST (14-36) U/L ALT (4-34) U/L Total Protein (6.3-8.2) g/dL Albumin (3.5-5.0) g/dL 10/06/20 10/06/20 10/06/20 Range/Units 04:12 04:12 04:17 WBC 12.2 H (3.8-10.6) k/uL RBC 3.57 L (3.80-5.40) m/uL Hgb 10.4 L (11.4-16.0) gm/dL Hct 31.3 L (34.0-46.0) % Plt Count 149 L (150-450) k/uL Neutrophils # 9.4 H (1.3-7.7) k/uL Sodium 132 L (137-145) mmol/L Glucose 109 H (74-99) mg/dL POC Glucose (mg/dL) 121 H (75-99) mg/dL Calcium 8.1 L (8.4-10.2) mg/dL AST 51 H (14-36) U/L ALT 63 H (4-34) U/L Total Protein 4.9 L (6.3-8.2) g/dL Albumin 2.7 L (3.5-5.0) g/dL 10/06/20 10/06/20 10/06/20 Range/Units 05:23 06:06 07:14 WBC (3.8-10.6) k/uL RBC (3.80-5.40) m/uL Hgb (11.4-16.0) gm/dL Hct (34.0-46.0) % Plt Count (150-450) k/uL Neutrophils # (1.3-7.7) k/uL Sodium (137-145) mmol/L Glucose (74-99) mg/dL POC Glucose (mg/dL) 116 H 113 H 136 H (75-99) mg/dL Calcium (8.4-10.2) mg/dL AST (14-36) U/L ALT (4-34) U/L Total Protein (6.3-8.2) g/dL Albumin (3.5-5.0) g/dL Assessment and Plan Plan: 1 multivessel coronary artery disease and the patient is post coronary artery bypass surgery the patient is postop day #2. The patient underwent ALVARADO to LAD and diagonal and left radial to OM. Hemodynamically stable. the patient is extubated. The patient is on no pressors. The patient is a sinus rhythm for now. 2 post thoracotomy, the patient was extubated without any major difficulties, has some atelectatic changes and left lung base, she is using incentive spirometer. The mediastinal and the left pleural chest tubes are still in place and output has been noted. No major issues in the surgical wound site is dry clean and intact. 3 obstructive sleep apnea mild with an AHI of 10 maintained on a CPAP on outpatient basis 4 history of atrial fibrillation currently her rhythm is sinuscurrently off Eliquis 5 hypertension 6 hyperlipidemia 7 osteoarthritis and previous history of sciatica 8 COPD with mild obstructive airway limitation with a preop FEV1 of 67% of predicted. 9 left-sided SVC, congenital anomaly Plan continue oxygen 2 L by nasal cannula continue metoprolol 12.5 mg twice a day insulin drip has been stopped and the patient is currently on sliding scale coverage Monitor the output from the chest and possibly remove them based on the output or at least separate accurately measure the output of each tube Remove the cordis from the left IJ Remove the arterial line Monitor the output from the BELLE drain Encourage use of incentive spirometer the need for anticoagulation will be readdressed again with cardiology and cardiothoracic surgery. We'll continue to follow. Condition is stable for now. Will ambulate this patient, and the patient emigrated on several occasions yesterday. We'll continue to follow.
--- NOTE | 2020-10-06 07:33 | XR ---
EXAMINATION TYPE: XR chest 1V portable DATE OF EXAM: 10/06/2020 COMPARISON: Chest x-ray 10/05/2020 HISTORY: Postop cardiac surgery, chest tube TECHNIQUE: Single frontal view of the chest is obtained. FINDINGS: Left-sided chest tube is in place, patient is post median sternotomy and left atrial appen dage clip placement, median sternal drain remains in place. No sizable pneumothorax or pleural effusi on. There is minimal subcutaneous emphysema. Cardiac mediastinal silhouette is stable. Lung volumes a re low. There are overlying artifacts. Patchy basilar density is present. Left jugular central venous sheath may be present. IMPRESSION: Findings are similar to prior exam. There is some residual atelectasis, chest tubes in p lace, no sizable pneumothorax.
[2020-10-06] MEDS: LACTATED RINGERS 1,000 ML IV SCH (07:46)
[2020-10-06] MEDS: CITALOPRAM HYDROBROMIDE 20 MG TAB PO SCH (08:17)
[2020-10-06] MEDS: amLODIPine 2.5 MG TAB PO SCH (08:17)
[2020-10-06] MEDS: CLOPIDOGREL 75 MG TAB PO SCH (08:17)
[2020-10-06] MEDS: ASPIRIN 325 MG TAB PO SCH (08:17)
[2020-10-06] MEDS: ATORVASTATIN 40 MG TAB PO SCH (08:17)
[2020-10-06] MEDS: PANTOPRAZOLE 40 MG TABLET PO SCH (08:17)
[2020-10-06] MEDS: METOPROLOL TARTRATE 25 MG TAB PO SCH ×2 (08:17→20:40)
[2020-10-06] MEDS ORDERED: FUROSEMIDE 10 MG/ML 2 ML VIAL IV ONE ×2 (08:27→14:45)
[2020-10-06] MEDS: IPRATROPIUM-ALBUTEROL 3 ML NEB INHALATION SCH ×4 (08:51→20:08)
--- NOTE | 2020-10-06 09:43 | P.PN ---
Subjective HISTORY OF PRESENTING ILLNESS This is a pleasant 65-year-old female past medical history significant for atrial fibrillation, hypertension, arthritis, sleep apnea, neuropathy, borderline diabetes mellitus and recently diagnosed coronary artery disease who presented for elective CABG. She follows in the office with Dr. Lane. She had been noticing complaints of increasing dyspnea on exertion as well as chest pain and therefore Dr. Alvarez performed stress test which was abnormal. She had a heart catheterization performed at [facility], report not currently available however reported 70% left main, 90% proximal LAD, small diagonal 90% stenosis, small ramus 80% stenosis and a large obtuse marginal 90% stenosis. On 10/04/2020 patient underwent successful off-pump CABG 3 with ALVARADO to diagonal and LAD and left radial artery graft to the obtuse marginal branch as well as bilateral pulmonary vein ablation and ligation of left atrial appendage. She did well with surgery and currently is seen sitting up in a chair. She denies any chest pain or pressure other than the incision. She does admit to some left rib cage pain with palpation however predominantly controlled with the meds. Vital signs stable, blood pressure 120/53, heart rate 75. She has been in sinus rhythm. 10/06/20 Patient seen and examined. Patient admits to some chest pain which she believes is related to her incision. Denies any shortness breath. Sodium low at 132 and white blood cell 12.2, creatinine 0.83 and hemoglobin 10.4. AST improved to 51 and ALT 63. DIAGNOSTICS Chest xray interval extubation, left-sided chest tube in place, no pneumothorax or pleural effusion, postop changes, probable atelectasis in left greater than right. Laboratory reviewed, white blood cell count 16.1, hemoglobin 12.3, platelets 167, sodium 131, glucose 129, creatinine 0.68, AST 126, ALT 142, albumin 3.1. Current cardiac medications include amiodarone drip, aspirin 325 mg daily, Lipitor 40 mg daily, Plavix 75 mg daily, Cardizem drip, heparin 5000 units subcu every 8 hours, metoprolol 12.5 mg twice a day. REVIEW OF SYSTEMS At the time of my exam: CONSTITUTIONAL: Denies fever or chills. CARDIOVASCULAR: +chest pain at incision, no shortness of breath, orthopnea, PND or palpitations. RESPIRATORY: Denies cough. GASTROINTESTINAL: Denies abdominal pain, diarrhea, constipation, nausea or vomiting. MUSCULOSKELETAL: Denies myalgias. NEUROLOGIC: Denies numbness, tingling or weakness. ENDOCRINE: Denies fatigue, weight change, polydipsia or polyurina. GENITOURINARY: Denies burning, hematuria or urgency with micturation. HEMATOLOGIC: Denies history of anemia or bleeding. PHYSICAL EXAMINATION Vital signs reviewed CONSTITUTIONAL: No apparent distress. HEENT: Head is normocephalic. Pupils are equal, round. Sclerae anicteric. Mucous membranes of the mouth are moist. No JVD. No carotid bruit. CHEST EXAMINATION: Lungs are clear to auscultation. No chest wall tenderness is noted on palpation or with deep breathing. HEART EXAMINATION: Regular rate and rhythm. S1, S2 heard. No murmurs, gallops or rub. +sternotomy incision ABDOMEN: Soft, nontender. Positive bowel sounds. EXTREMITIES: 2+ peripheral pulses, no lower extremity edema and no calf t enderness. NEUROLOGIC EXAMINATION: Patient is awake, alert and oriented x3. ASSESSMENT 1. Coronary artery disease status post ALVARADO to LAD and diagonal as well as left radial artery to OM 10/04/2020 2. Persistent atrial fibrillation status post pulmonary vein ablation intraoperatively 10/04/2020, currently normal sinus rhythm 3. Essential hypertension 4. Hyperlipidemia 5. Leukocytosis 6. Borderline diabetes mellitus 7. Obesity 8. Mildly elevated liver enzymes improved PLAN Patient appears to be recovering well. Continue with low-dose amlodipine for her radial artery graft. Continue amiodarone drip per cardiothoracic surgery. Continue aspirin and Plavix and begin anticoagulation when deemed appropriate by cardiothoracic surgery for her history of atrial fibrillation. Continue Lopr essor 25 mg twice a day. Objective - Vital Signs Vital signs: Vital Signs Temp 98.7 F 10/06/20 08:00 Pulse 76 10/06/20 09:02 Resp 10 L 10/06/20 09:00 BP 101/71 10/06/20 09:00 Pulse Ox 97 10/06/20 09:00 Intake & Output 10/05/20 10/06/20 10/06/20 18:59 06:59 18:59 Intake Total 658.333 710.415 78 Output Total 675 815 60 Balance -16.667 -104.585 18 Weight 89.7 kg 91.9 kg Intake: IV 616 432 78 Lactated Ringers 1,000 ml 500 360 60 @ 20 mls/hr IV .Q24H ELANA Rx#:[id number] Pressure bags 66 72 18 ceFAZolin 2 gm In Sodium 50 Chloride 0.9% 50 ml @ 100 mls/hr IVPB Q8HR ELANA Rx# :[id number] Intake, IV Titration 42.333 18.415 Amount Insulin Regular 100 unit 42.333 18.415 In Sodium Chloride 0.9% 100 ml @ Per Protocol IV .Q0M ELANA Rx#:[id number] Oral 260 Output: Chest Tube Drainage 190 140 Left Pleural/Mediastinal 190 140 Drainage 10 10 Left Wrist 10 10 Urine 485 665 50 Other: Voiding Method Indwelling Catheter Indwelling Catheter Indwelling Catheter ABP, PAP, CO, CI - Last Documented Arterial Blood Pressure 137/62 - Labs CBC & Chem 7: 10/06/20 04:12 10/06/20 04:12 Labs: Abnormal Lab Results - Last 24 Hours (Table) 10/05/20 10/05/20 10/05/20 Range/Units 10:07 11:51 14:17 WBC (3.8-10.6) k/uL RBC (3.80-5.40) m/uL Hgb (11.4-16.0) gm/dL Hct (34.0-46.0) % Plt Count (150-450) k/uL Neutrophils # (1.3-7.7) k/uL Sodium (137-145) mmol/L Glucose (74-99) mg/dL POC Glucose (mg/dL) 183 H 138 H 142 H (75-99) mg/dL Calcium (8.4-10.2) mg/dL AST (14-36) U/L ALT (4-34) U/L Total Protein (6.3-8.2) g/dL Albumin (3.5-5.0) g/dL 10/05/20 10/05/20 10/05/20 Range/Units 15:12 16:10 19:03 WBC (3.8-10.6) k/uL RBC (3.80-5.40) m/uL Hgb (11.4-16.0) gm/dL Hct (34.0-46.0) % Plt Count (150-450) k/uL Neutrophils # (1.3-7.7) k/uL Sodium (137-145) mmol/L Glucose (74-99) mg/dL POC Glucose (mg/dL) 110 H 136 H 166 H (75-99) mg/dL Calcium (8.4-10.2) mg/dL AST (14-36) U/L ALT (4-34) U/L Total Protein (6.3-8.2) g/dL Albumin (3.5-5.0) g/dL 10/05/20 10/05/20 10/05/20 Range/Units 20:04 21:04 22:11 WBC (3.8-10.6) k/uL RBC (3.80-5.40) m/uL Hgb (11.4-16.0) gm/dL Hct (34.0-46.0) % Plt Count (150-450) k/uL Neutrophils # (1.3-7.7) k/uL Sodium (137-145) mmol/L Glucose (74-99) mg/dL POC Glucose (mg/dL) 135 H 105 H 142 H (75-99) mg/dL Calcium (8.4-10.2) mg/dL AST (14-36) U/L ALT (4-34) U/L Total Protein (6.3-8.2) g/dL Albumin (3.5-5.0) g/dL 10/05/20 10/06/20 10/06/20 Range/Units 23:00 00:16 02:12 WBC (3.8-10.6) k/uL RBC (3.80-5.40) m/uL Hgb (11.4-16.0) gm/dL Hct (34.0-46.0) % Plt Count (150-450) k/uL Neutrophils # (1.3-7.7) k/uL Sodium (137-145) mmol/L Glucose (74-99) mg/dL POC Glucose (mg/dL) 133 H 103 H 128 H (75-99) mg/dL Calcium (8.4-10.2) mg/dL AST (14-36) U/L ALT (4-34) U/L Total Protein (6.3-8.2) g/dL Albumin (3.5-5.0) g/dL 10/06/20 10/06/20 10/06/20 Range/Units 03:13 04:12 04:12 WBC 12.2 H (3.8-10.6) k/uL RBC 3.57 L (3.80-5.40) m/uL Hgb 10.4 L (11.4-16.0) gm/dL Hct 31.3 L (34.0-46.0) % Plt Count 149 L (150-450) k/uL Neutrophils # 9.4 H (1.3-7.7) k/uL Sodium 132 L (137-145) mmol/L Glucose 109 H (74-99) mg/dL POC Glucose (mg/dL) 114 H (75-99) mg/dL Calcium 8.1 L (8.4-10.2) mg/dL AST 51 H (14-36) U/L ALT 63 H (4-34) U/L Total Protein 4.9 L (6.3-8.2) g/dL Albumin 2.7 L (3.5-5.0) g/dL 10/06/20 10/06/20 10/06/20 Range/Units 04:17 05:23 06:06 WBC (3.8-10.6) k/uL RBC (3.80-5.40) m/uL Hgb (11.4-16.0) gm/dL Hct (34.0-46.0) % Plt Count (150-450) k/uL Neutrophils # (1.3-7.7) k/uL Sodium (137-145) mmol/L Glucose (74-99) mg/dL POC Glucose (mg/dL) 121 H 116 H 113 H (75-99) mg/dL Calcium (8.4-10.2) mg/dL AST (14-36) U/L ALT (4-34) U/L Total Protein (6.3-8.2) g/dL Albumin (3.5-5.0) g/dL 10/06/20 Range/Units 07:14 WBC (3.8-10.6) k/uL RBC (3.80-5.40) m/uL Hgb (11.4-16.0) gm/dL Hct (34.0-46.0) % Plt Count (150-450) k/uL Neutrophils # (1.3-7.7) k/uL Sodium (137-145) mmol/L Glucose (74-99) mg/dL POC Glucose (mg/dL) 136 H (75-99) mg/dL Calcium (8.4-10.2) mg/dL AST (14-36) U/L ALT (4-34) U/L Total Protein (6.3-8.2) g/dL Albumin (3.5-5.0) g/dL
--- NOTE | 2020-10-06 10:33 | P.PN ---
Subjective Progress Note Date: 10/06/20 Principal diagnosis: Coronary artery disease. Past medical history significant for atrial fibrillation, dating back to 2014, hypertension, hyperlipidemia, obstructive sleep apnea, and osteoarthritis. POD #2 off-pump coronary artery bypass grafting 3 with sequential ALVARADO to the diagonal coronary artery and left anterior descending coronary artery and left radial artery graft to the obtuse marginal coronary artery. Bilateral pulmonary vein ablation with ligation of the left atrial appendage. Postoperative acute blood loss anemia, expected outcome due to hemodilution. The patient was seen in follow-up today 10/06/2020 at her bedside in the intensive care unit. Currently she is sitting up to the bedside chair, is awake, alert and is in no acute apparent distress. Denies any complaints of pain or shortness of breath at this time. She remains hemodynamically stable and is currently on no inotropic or pressor support. Left IJ Cordis is in place with continuous CVP monitoring, current CVP pressure 6 mmHg. Bedside telemetry showing normal sinus rhythm heart rate 80 BPM. Mediastinal and left pleural chest tubes remained in place to low continuous wall suction -20 cm H2O. No air leak is present. Draining thin serosanguineous drainage with 70 mL output in th e last 8 hours and 350 mL output last 24 hours. Oxygen saturation are 95% on 2 L nasal cannula. Achieving 1000 mL on her incentive spirometry with encouragement. Remains afebrile and the last 24 hours. Left forearm BELLE drain remains in place with scant serosanguineous drainage. Objective - Vital Signs Vital signs: Vital Signs Temp 98.7 F 10/06/20 08:00 Pulse 76 10/06/20 09:02 Resp 10 L 10/06/20 09:00 BP 101/71 10/06/20 09:00 Pulse Ox 97 10/06/20 09:00 Intake & Output 10/05/20 10/06/20 10/06/20 18:59 06:59 18:59 Intake Total 658.333 710.415 78 Output Total 675 815 60 Balance -16.667 -104.585 18 Weight 89.7 kg 91.9 kg Intake: IV 616 432 78 Lactated Ringers 1,000 ml 500 360 60 @ 20 mls/hr IV .Q24H [facility] Rx#:[id number] Pressure bags 66 72 18 ceFAZolin 2 gm In Sodium 50 Chloride 0.9% 50 ml @ 100 mls/hr IVPB Q8HR [facility] Rx# :[id number] Intake, IV Titration 42.333 18.415 Amount Insulin Regular 100 unit 42.333 18.415 In Sodium Chloride 0.9% 100 ml @ Per Protocol IV .Q0M [facility] Rx#:[id number] Oral 260 Output: Chest Tube Drainage 190 140 Left Pleural/Mediastinal 190 140 Drainage 10 10 Left Wrist 10 10 Urine 485 665 50 Other: Voiding Method Indwelling Catheter Indwelling Catheter Indwelling Catheter ABP, PAP, CO, CI - Last Documented Arterial Blood Pressure 137/62 - Constitutional General appearance: Present: cooperative, no acute distress, obese - EENT Eyes: Present: normal appearance. Absent: scleral icterus ENT: Present: hard of hearing - Neck Details: Neck is supple, no JVD. Left IJ Cordis in place with continuous CVP monitoring and functioning. - Respiratory Details: Lung sounds essentially clear throughout, diminished bilateral bases. Respi rations are symmetrical and nonlabored. Oxygen saturation are 95% on 2 L nasal cannula and she is achieving 1000 mL on her incentive spirometry. Left and mediastinal chest tubes remain in place to low continuous wall suction -20 cm H2O. No air leak is present. Draining thin serosanguineous drainage with 70 mL output in the last 8 hours and 350 mL output in the last 24 hours. - Cardiovascular Details: Regular rhythm and rate. S1 and S2 present, negative for S3, gallop or murmur. Sternum is stable. Heart hugger is in place and she is demonstrating appropriate use. Bedside telemetry showing normal sinus rhythm heart rate 80 ppm. Left IJ Cordis in place with continuous CVP monitoring, current CVP pressure 6 mmHg. No edema present. Knee-high MILDRED hose and sequential compression devices in place to her bilateral lower extremity Garry. Right radial arterial line in place and functioning. - Gastrointestinal Gastrointestinal Comment(s): Abdomen is soft, nontender and nondistended. Active bowel sounds present in all 4 abdominal quadrants. No guarding or rigidity. No organomegaly appreciated. Tolerating oral intake. - Genitourinary Genitourinary Comment(s): Nguyen catheter for accurate I&O. Draining clear yellow urine. 550 mL output in the last 8 hours. - Integumentary Integumentary Comment(s): Skin is warm and dry. No clubbing or cyanosis is present. Midline sternal incision is clean, dry and approximated. No drainage or redness is present. Dressing is clean, dry and intact. Left arm radial artery harvest site clean, dry and approximated. No drainage redness is present. Left ulnar pulses palpable. BELLE drain in place to her left forearm with scant serosanguineous drainage. - Neurologic Neurologic: Present: CNII-XII intact. Absent: focal deficits - Musculoskeletal Musculoskeletal: Present: gait normal, strength equal bilaterally - Psychiatric Psychiatric: Present: A&O x's 3, appropriate affect, intact judgment & insight - Allied health notes Allied health notes reviewed: nursing - Labs CBC & Chem 7: 10/06/20 04:12 10/06/20 04:12 Labs: Abnormal Lab Results - Last 24 Hours (Table) 10/05/20 10/05/20 10/05/20 Range/Units 11:51 14:17 15:12 WBC (3.8-10.6) k/uL RBC (3.80-5.40) m/uL Hgb (11.4-16.0) gm/dL Hct (34.0-46.0) % Plt Count (150-450) k/uL Neutrophils # (1.3-7.7) k/uL Sodium (137-145) mmol/L Glucose (74-99) mg/dL POC Glucose (mg/dL) 138 H 142 H 110 H (75-99) mg/dL Calcium (8.4-10.2) mg/dL AST (14-36) U/L ALT (4-34) U/L Total Protein (6.3-8.2) g/dL Albumin (3.5-5.0) g/dL 10/05/20 10/05/20 10/05/20 Range/Units 16:10 19:03 20:04 WBC (3.8-10.6) k/uL RBC (3.80-5.40) m/uL Hgb (11.4-16.0) gm/dL Hct (34.0-46.0) % Plt Count (150-450) k/uL Neutrophils # (1.3-7.7) k/uL Sodium (137-145) mmol/L Glucose (74-99) mg/dL POC Glucose (mg/dL) 136 H 166 H 135 H (75-99) mg/dL Calcium (8.4-10.2) mg/dL AST (14-36) U/L ALT (4-34) U/L Total Protein (6.3-8.2) g/dL Albumin (3.5-5.0) g/dL 10/05/20 10/05/20 10/05/20 Range/Units 21:04 22:11 23:00 WBC (3.8-10.6) k/uL RBC (3.80-5.40) m/uL Hgb (11.4-16.0) gm/dL Hct (34.0-46.0) % Plt Count (150-450) k/uL Neutrophils # (1.3-7.7) k/uL Sodium (137-145) mmol/L Glucose (74-99) mg/dL POC Glucose (mg/dL) 105 H 142 H 133 H (75-99) mg/dL Calcium (8.4-10.2) mg/dL AST (14-36) U/L ALT (4-34) U/L Total Protein (6.3-8.2) g/dL Albumin (3.5-5.0) g/dL 10/06/20 10/06/20 10/06/20 Range/Units 00:16 02:12 03:13 WBC (3.8-10.6) k/uL RBC (3.80-5.40) m/uL Hgb (11.4-16.0) gm/dL Hct (34.0-46.0) % Plt Count (150-450) k/uL Neutrophils # (1.3-7.7) k/uL Sodium (137-145) mmol/L Glucose (74-99) mg/dL POC Glucose (mg/dL) 103 H 128 H 114 H (75-99) mg/dL Calcium (8.4-10.2) mg/dL AST (14-36) U/L ALT (4-34) U/L Total Protein (6.3-8.2) g/dL Albumin (3.5-5.0) g/dL 10/06/20 10/06/20 10/06/20 Range/Units 04:12 04:12 04:17 WBC 12.2 H (3.8-10.6) k/uL RBC 3.57 L (3.80-5.40) m/uL Hgb 10.4 L (11.4-16.0) gm/dL Hct 31.3 L (34.0-46.0) % Plt Count 149 L (150-450) k/uL Neutrophils # 9.4 H (1.3-7.7) k/uL Sodium 132 L (137-145) mmol/L Glucose 109 H (74-99) mg/dL POC Glucose (mg/dL) 121 H (75-99) mg/dL Calcium 8.1 L (8.4-10.2) mg/dL AST 51 H (14-36) U/L ALT 63 H (4-34) U/L Total Protein 4.9 L (6.3-8.2) g/dL Albumin 2.7 L (3.5-5.0) g/dL 10/06/20 10/06/20 10/06/20 Range/Units 05:23 06:06 07:14 WBC (3.8-10.6) k/uL RBC (3.80-5.40) m/uL Hgb (11.4-16.0) gm/dL Hct (34.0-46.0) % Plt Count (150-450) k/uL Neutrophils # (1.3-7.7) k/uL Sodium (137-145) mmol/L Glucose (74-99) mg/dL POC Glucose (mg/dL) 116 H 113 H 136 H (75-99) mg/dL Calcium (8.4-10.2) mg/dL AST (14-36) U/L ALT (4-34) U/L Total Protein (6.3-8.2) g/dL Albumin (3.5-5.0) g/dL - Imaging and Cardiology Chest x-ray: report reviewed, image reviewed Assessment and Plan Assessment: 1. Coronary artery disease, status post three-vessel off pump coronary artery bypass grafting surgery 2. History of paroxysmal atrial fibrillation, status post bilateral pulmonary vein ablation and ligation of the left atrial appendage 3. History of hypertension 4. History of hyperlipidemia 5. History of obstructive sleep apnea 6. Osteoarthritis 7. Postoperative acute blood loss anemia, expected Plan: 1. Continue aspirin, statin, Plavix, and beta reggie. Will increase metoprolol tartrate to 25 mg by mouth twice a day. 2. Wean O2 as tolerated. Encourage incentive spirometry use 10 times every hour while awake. Bronchodilators per pulmonary/critical care medicine. 3. Increase activity, ambulate as tolerated. PT/OT/cardiac rehab following. 4. Risk factor modification discussed, continue to encourage smoking cessation. 5. Will monitor daily labs and chest x-rays. Electrolyte replacement per protocol. 6. Pain control current when necessary medication regimen. Discontinue [place] once chest tubes are removed, start acetaminophen 1000 mg every 6 hours by mouth when necessary pain. Restart Neurontin 300 mg by mouth 3 times a day home dose. 7. GI/DVT prophylaxis. 8. Insulin management per primary care service. Patient is not a diabetic, preoperative hemoglobin A1c 6.0 % 9. Discontinue left IJ Cordis.. 10. Mediastinal and left pleural chest tubes removed without incident. Vaseline impregnated gauze to cover, 4 x 4 gauze to cover and secured with tape. 11. Discontinue Nguyen catheter. Continue strict accurate intake and output. Daily weight. 12. Continue Norvasc 2.5 mg by mouth daily at noon for radial artery spasm prophylaxis. Please do not discontinue Norvasc without checking with cardiothoracic surgery service please. 13. Transfer to the third floor cardiac stepdown unit orders place.. 14. More recommendations to follow based on patient's clinical course. Time with Patient: Greater than 30
[2020-10-06 11:34] LABS: Glucose,Whole Blood 114 mg/dL (75-99)
[2020-10-06 11:40] VITALS: BMI 34.7
[2020-10-06] MEDS: INSULIN ASPART (NovoLOG) 100 UNIT/ML VIAL SQ SCH ×3 (11:41→21:05)
[2020-10-06] MEDS: GABAPENTIN 300 MG CAP PO SCH ×2 (16:14→22:10)
[2020-10-06 16:26] LABS: Glucose,Whole Blood 160 mg/dL (75-99)
[2020-10-06] MEDS: AMITRIPTYLINE HCL 25 MG TAB PO SCH (20:41)
[2020-10-06] MEDS: SENNOSIDES-DOCUSATE SODIUM 1 EACH TAB PO SCH (20:41)
[2020-10-06 20:42] LABS: Glucose,Whole Blood 147 mg/dL (75-99)
--- NOTE | 2020-10-06 21:13 | CONS ---
CONSULTATION DATE OF SERVICE: 10/06/2000 I am covering for Dr. Vo. REASON FOR CONSULTATION: Advice regarding hypertension, hyperlipidemia and other medical issues, requested by Dr. Rosales. HISTORY OF PRESENT ILLNESS: This 65 -year-old woman with a past medical history of atrial fibrillation, history of hypertension, hyperlipidemia, being followed by Dr. Salvador Vo in the outpatient setting, underwent CAD, CABG x3 and as well as ablation and ligation of left atrial appendage for CAD and paroxysmal atrial fibrillation by Dr. Rosales. The patient tolerated the procedure. Patient extubated at this time. There is no history of fever, rigors or chills. No history of headache, loss of consciousness or seizures, chest pain, palpitations at this time. PAST MEDICAL HISTORY: History of atrial fibrillation, hypertension, hyperlipidemia, DJD, sleep apnea, history of pancreatitis. MEDICATIONS: Medications prior to admission, home medications are: Tenormin, omeprazole, Cozaar, Neurontin, Celexa, Lipitor, aspirin, Eliquis and Elavil. ALLERGIES: MORPHINE. FAMILY HISTORY: History of cancer in the family. SOCIAL HISTORY: History of smoking. No history of alcohol intake. REVIEW OF SYSTEMS: ENT: No diminished vision. No diminished hearing. CARDIOVASCULAR: As mentioned earlier. RESPIRATORY: As mentioned earlier. GI no nausea or vomiting. no dysuria. NERVOUS SYSTEM: No numbness or weakness. ALLERGY/IMMUNOLOGY: No asthma or hayfever. MUSCULOSKELETAL as mentioned earlier. HEMATOLOGY/ONCOLOGY: No history of anemia. ENDOCRINE: No history of diabetes or hypothyroidism. CONSTITUTIONAL: As mentioned earlier. DERMATOLOGY: Negative. RHEUMATOLOGY: Negative. PSYCHIATRIC: As mentioned earlier. PHYSICAL EXAMINATION: The patient is alert and oriented times three. Pulse 81, blood pressure 130/75, respiration 19, temperature 98.8, pulse ox 91% on 2 L. HEENT: Conjunctivae normal. NECK: No JVD. CARDIOVASCULAR: S1, S2 muffled. RESPIRATORY: Breath sounds diminished in the bases. A few scattered rhonchi. No crackles. ABDOMEN: Soft, nontender. LEGS: No edema. No swelling. NERVOUS SYSTEM: Higher functions as mentioned earlier. Moves all four limbs. No focal deficits. LYMPHATICS: No lymph nodes palpable in the neck, axillae or groin. SKIN: No ulcer, rash or bleeding. JOINTS: No active deforming arthropathy. LAB STUDIES: WBC 12.2, hemoglobin 10.4, sodium 132, potassium 4.2, AST is 51, ALT 63. ASSESSMENT: 1. Coronary artery disease status post coronary artery bypass grafting. 2. Atrial fibrillation, paroxysmal. 3. Hypertension. 4. Hyperlipidemia. 5. History of degenerative joint disease. 6. Obstructive sleep apnea. 7. History of pancreatitis. 8. Uses CPAP. 9. History of cholecystectomy. 10.History of depression. 11.History of nicotine dependence. 12.Obesity with body mass of 34.9. 13.FULL CODE. RECOMMENDATIONS AND DISCUSSION: In this 65-year-old woman who presented with multiple medical issues, at this time, I recommend to continue current medications, symptomatic treatment. Otherwise incentive spirometry. DVT prophylaxis. Repeat labs. Closely follow with Cardiology and Cardiothoracic surgery. Recommend close followup with Dr. Vo after discharge. Thank you Dr. Rosales for letting us participate in the care of this patient. MMODL / IJN: [id number] /
[2020-10-07] MEDS: KETOROLAC 15 MG/ML 1 ML VIAL IVP SCH ×3 (00:29→13:32)
[2020-10-07 04:22] LABS: Basophils % (A) 0 %; Eosinophils # (A) 0.2 k/uL (0-0.7); Eosinophils % (A) 2 %; HCT 30.6 % (34.0-46.0); HGB 10.1 gm/dL (11.4-16.0); Lymphocytes # (A) 1.8 k/uL (1.0-4.8); Lymphocytes % (A) 21 %; MCH 29.5 pg (25.0-35.0); MCV 89.4 fL (80.0-100.0); Mean Platelet Volume 9.2; Monocytes # (A) 0.5 k/uL (0-1.0); Monocytes % (A) 6 %; Neutrophils # (A) 6.1 k/uL (1.3-7.7); Neutrophils % (A) 70 %; Platelet Count 142 k/uL (150-450); RBC 3.42 m/uL (3.80-5.40); RDW 13.3 % (11.5-15.5); WBC 8.7 k/uL (3.8-10.6)
[2020-10-07 04:24] LABS: Albumin 2.9 g/dL (3.5-5.0); Calcium 8.2 mg/dL (8.4-10.2); Total Bilirubin 0.8 mg/dL (0.2-1.3); Total Protein 5.1 g/dL (6.3-8.2)
[2020-10-07] MEDS: HEPARIN SODIUM,PORCINE 5,000 UNIT/ML 1 ML VIAL SQ SCH ×3 (04:30→20:43)
[2020-10-07] MEDS: INSULIN ASPART (NovoLOG) 100 UNIT/ML VIAL SQ SCH ×4 (06:43→20:44)
[2020-10-07] MEDS: PANTOPRAZOLE 40 MG TABLET PO SCH (06:46)
[2020-10-07 06:55] LABS: Glucose,Whole Blood 105 mg/dL (75-99)
--- NOTE | 2020-10-07 07:13 | P.PN ---
Subjective Progress Note Date: 10/07/20 65-year-old female patient underwent coronary artery bypass surgery. The patie nt is known to have coronary artery disease and previous history of atrial fibrillation. Recently, the patient was having complaints of worsening shortness of breath. She had a positive cardiac stress test. Cardiac catheterization revealed disease involving the left main coronary artery with severe stenosis in the circumflex and LAD. There was mild disease involving the RCA. Based on that, the patient was taken to the operating room and the patient underwent off-pump ALVARADO to LAD and radial to to OM.. The patient was brought back to the intensive care unit for further monitoring. [place] catheter was pulled out and operating room as the patient was found to have a left-sided subclavian and the vessel was ablated intraoperatively and the catheter was removed. As such, no hemodynamic parameters are available. She has an A-line in her right radial. Her blood pressure is adequate for now and she is on no pressors. She is on a Cardizem drip at 5 mg an hour and she is on a low dose nitroglycerin drip. The patient is currently on assist control mode at the rate of 10 with a tidal volume of 400 FiO2 of 50% with a PEEP of 5. Output from the chest tube has been minimal since the patient up from the operating room in the order of 30 mL and and there is no evidence of any air leak. All of the tubes are in good location based on the chest x-ray. The blood gas showed a pH of 7.28 with a pCO2 of 51 and pO2 of 169. FiO2 was up to 50% and I further increased the rate up to 20. She has an adequate urine output. She is currently on propofol. Postoperative hemoglobin is 11.9. Is evaluation of 10/05/2020, seeing the patient for a follow-up. Note that the patient was extubated yesterday without any major difficulties and she did very well post extubation she is currently on oxygen at 4 L per minute nasal cannula. Incentive spirometer and she is calm and comfortable. The patient has a mediastinal and the left pleural chest tube and output has been in the order of 300 mL over the past 12 hours. Output is serosanguineous. She also has a BELLE drain in the left upper extremity and output is scant for now. She is on drips and she is on a Cardizem drip arriving at 5 mg an hour and an insulin drip running at 1.5 units an hour which was increased up to 4.0 units an hour overnight. The nitroglycerin drip is off for now. The chest x-ray from today was reviewed and the patient is adequate expansion of both lungs and there is no evidence of any pneumothorax. Sternum stable clean and intact on examination. On today's chest x-ray there is some atelectatic changes in the left lung base. No signs of any effusion. She was able to use the incentive spirometer and she is pulling approximately 500 mL. No active pain issues. Hemoglobin is at 12.3. Function stable. LFTs are down trending. She is afebrile. The neck fluid balance over the past 24 hours is -80 disease. She is on no pressors for now. Meanwhile, the patient is on aspirin 325 mg by mouth daily, she is also on Plavix 75 mg by mouth daily, she was started on metoprolol 12.5 mg by mouth twic e a day and Cardizem drip is running at 5 mg an hour. She is communicating. No focal neurological deficit at this point in time. 2020 the patient is sitting up on a chair tolerating her diet. The chest x-ray from today shows postsurgical changes and the 2 chest tubes are still in place including a mediastinal and the left pleural chest tube. Output has been 70 mL over the past 8 hours and a total of 150 mL over the past 24 hours. Output is serosanguineous. She is using incentive spirometer. She is producing adequate amount of urine output. She is on oxygen at 2 L and the pulse ox is 95%. Afebrile. Cardiac rhythm is sinus.. That hemoglobin is at 10.4 with a white cell count of 12.2. The patient is on aspirin, Plavix, she is also on and the Cardizem drip has been discontinued yesterday. She is on amlodipine 2.5 mg for blood pressure control pH is on [place] for pain control. Outpatient medications including citalopram is resume. She has been taking also atenolol 25 mg on outpatient basis and she was on anticoagulation outpatient basis regarding proximal atrial fibrillation and for now she is not taking any anticoagulation.the patient is also off insulin drip.patient has a BELLE drain in the left upper extremity and output is scant. She has a Cordis in the left neck . She still has an arterial line. 10/07/2020, the patient is awake and alert and she is reading a book on the recliner. She is on room air oxygen and her chest x-ray shows postsurgical changes, sternotomy, some limited atelectatic change in the left lung base, right lung is clear and the patient has cardiomegaly. No significant effusion. No atelectasis. No pneumothorax. No other major abnormalities noted. She is postop day #3 following an off-pump ALVARADO to LAD and the radial to OM. The BELLE drain from the left upper extremity has been removed. The surgical wound site is dry clean and intact. The mediastinal chest tubes have been also removed. She is using incentive spirometer and she is pulling approximately 1300 this morning. Hemodynamically stable. She is in a cardiac rhythm. The medications include aspirin, Plavix, metoprolol at a dose of 25 mg by mouth twice a day. She is also on Lipitor 40 mg by mouth daily and Norvasc 2.5 mg by mouth daily. Her BP is adequately controlled for now. No other significant events otherwise for now. Awake. Oriented. Following commands and answering questions without any focal neurological deficits. No confusion. No altered mentation. Objective - Vital Signs Vital signs: Vital Signs Temp 98.2 F 10/07/20 04:00 Pulse 82 10/07/20 06:00 Resp 20 10/07/20 06:00 BP 100/61 10/07/20 06:00 Pulse Ox 94 L 10/07/20 06:00 Intake & Output 10/06/20 10/07/20 10/07/20 18:59 06:59 18:59 Intake Total 78 400 Output Total 760 520 Balance -682 -120 Weight 91.9 kg 90.8 kg Intake: IV 78 Lactated Ringers 1,000 ml 60 @ 20 mls/hr IV .Q24H [facility] Rx#:[id number] Pressure bags 18 Oral 400 Output: Drainage 10 Left Wrist 10 Urine 750 520 Other: Voiding Method Indwelling Catheter Bedside Commode # Voids 1 ABP, PAP, CO, CI - Last Documented Arterial Blood Pressure 131/60 - Exam The patient is postop thoracotomy, patient is awake and alert and she is currently on RA Head exam was generally normal. There was no scleral icterus or corneal arcus. Mucous membranes were moist. Neck was supple and without jugular venous distension, thyromegaly, or carotid bruits. Carotids were easily palpable bilaterally. There was no adenopathy. Lungs sounds are diminished and the chest tubes have been removed. Surgical wound site is dry clean and intact. Breath sounds are equal and symmetrical and there is no wheezing or rhonchi any crackles. Cardiac exam revealed the PMI to be normally situated and sized. The rhythm was regular and no extrasystoles were noted during several minutes of auscultation. The first and second heart sounds were normal and physiologic splitting of the second heart sound was noted. There were no murmurs, rubs, clicks, or gallops. Abdominal exam revealed normal bowel sounds. The abdomen was soft, non-tender, and without masses, organomegaly, or appreciable enlargement of the abdominal aorta. Examination of the extremities revealed easily palpable radial, femoral and pedal pulses. There was no cyanosis, clubbing or edema. Surgical wound site over the left radial area and the left upper extremity is dry clean and intact. There is also BELLE drain has been removed from the left upper extremity Neurologically awake and alert and there is no focal neurological deficits for now. She is awake and oriented 3. - Labs CBC & Chem 7: 10/07/20 03:28 10/07/20 03:28 Labs: Abnormal Lab Results - Last 24 Hours (Table) 10/06/20 10/06/20 10/06/20 Range/Units 07:14 11:33 16:24 RBC (3.80-5.40) m/uL Hgb (11.4-16.0) gm/dL Hct (34.0-46.0) % Plt Count (150-450) k/uL Sodium (137-145) mmol/L BUN (7-17) mg/dL POC Glucose (mg/dL) 136 H 114 H 160 H (75-99) mg/dL Calcium (8.4-10.2) mg/dL ALT (4-34) U/L Total Protein (6.3-8.2) g/dL Albumin (3.5-5.0) g/dL 10/06/20 10/07/20 10/07/20 Range/Units 20:41 03:28 03:28 RBC 3.42 L (3.80-5.40) m/uL Hgb 10.1 L (11.4-16.0) gm/dL Hct 30.6 L (34.0-46.0) % Plt Count 142 L (150-450) k/uL Sodium 132 L (137-145) mmol/L BUN 23 H (7-17) mg/dL POC Glucose (mg/dL) 147 H (75-99) mg/dL Calcium 8.2 L (8.4-10.2) mg/dL ALT 38 H (4-34) U/L Total Protein 5.1 L (6.3-8.2) g/dL Albumin 2.9 L (3.5-5.0) g/dL 10/07/20 Range/Units 06:41 RBC (3.80-5.40) m/uL Hgb (11.4-16.0) gm/dL Hct (34.0-46.0) % Plt Count (150-450) k/uL Sodium (137-145) mmol/L BUN (7-17) mg/dL POC Glucose (mg/dL) 105 H (75-99) mg/dL Calcium (8.4-10.2) mg/dL ALT (4-34) U/L Total Protein (6.3-8.2) g/dL Albumin (3.5-5.0) g/dL Assessment and Plan Plan: 1 multivessel coronary artery disease and the patient is post coronary artery bypass surgery the patient is postop day #3. The patient underwent ALVARADO to LAD and diagonal and left radial to OM. Hemodynamically stable. the patient is extubated. The patient is on no pressors. The patient is a sinus rhythm for now. 2 post thoracotomy, the patient was extubated without any major difficulties, has some atelectatic changes and left lung base, she is using incentive spirometer. The mediastinal and the left pleural chest tubes were removed and the patient has been using incentive spirometer without any major difficulties currently on room air. 3 obstructive sleep apnea mild with an AHI of 10 maintained on a CPAP on outpatient basis 4 history of atrial fibrillation currently her rhythm is sinuscurrently off Eliquis 5 hypertension 6 hyperlipidemia 7 osteoarthritis and previous history of sciatica 8 COPD with mild obstructive airway limitation with a preop FEV1 of 67% of predicted. 9 left-sided SVC, congenital anomaly Plan she is currently on room air oxygen and the mediastinal chest tubes have been removed and the left-sided chest tube is been also removed continue metoprolol 25 mg twice a day , in addition to aspirin and Plavix insulin on sliding scale coverage Removed the cordis from the left IJ Removed the arterial line Removed the BELLE drain Encourage use of incentive spirometer the need for anticoagulation will be readdressed again with cardiology and cardiothoracic surgery. We'll continue to follow. Condition is stable for now. Will ambulate this patient Possible home today or tomorrow.
[2020-10-07] MEDS ORDERED: FUROSEMIDE 10 MG/ML 2 ML VIAL IV ONE (07:19)
--- NOTE | 2020-10-07 07:47 | XR ---
EXAMINATION TYPE: XR chest 2V DATE OF EXAM: 10/07/2020 COMPARISON: Chest x-ray 10/06/2020 HISTORY: Status post coronary artery bypass graft TECHNIQUE: Frontal and lateral views of the chest are obtained. FINDINGS: Left-sided chest tube and mediastinal drain have been removed. There is no evident pneumot horax. There are overlying artifacts. Patient is post median sternotomy and left atrial appendage jay cement. There are overlying leads. Right hemidiaphragm is mildly elevated. Cardiomediastinal silhouet te is stable. Minimal patchy basilar density persists. IMPRESSION: No evident complication status post chest tube removal. There is some residual basilar a telectasis, difficult to exclude minimal effusion
[2020-10-07] MEDS: ATORVASTATIN 40 MG TAB PO SCH (08:02)
[2020-10-07] MEDS: METOPROLOL TARTRATE 25 MG TAB PO SCH ×2 (08:02→20:47)
[2020-10-07] MEDS: CLOPIDOGREL 75 MG TAB PO SCH (08:02)
[2020-10-07] MEDS: CITALOPRAM HYDROBROMIDE 20 MG TAB PO SCH (08:02)
[2020-10-07] MEDS: GABAPENTIN 300 MG CAP PO SCH ×3 (08:02→22:06)
[2020-10-07] MEDS: ASPIRIN 325 MG TAB PO SCH (08:03)
[2020-10-07] MEDS: amLODIPine 2.5 MG TAB PO SCH (08:08)
[2020-10-07] MEDS: IPRATROPIUM-ALBUTEROL 3 ML NEB INHALATION SCH ×4 (08:59→21:48)
--- NOTE | 2020-10-07 09:12 | P.PN ---
Subjective Progress Note Date: 10/07/20 Principal diagnosis: Coronary artery disease. Past medical history significant for atrial fibrillation, dating back to 2014, hypertension, hyperlipidemia, obstructive sleep apnea, and osteoarthritis. POD #3 off-pump coronary artery bypass grafting 3 with sequential ALVARADO to the diagonal coronary artery and left anterior descending coronary artery and left radial artery graft to the obtuse marginal coronary artery. Bilateral pulmonary vein ablation with ligation of the left atrial appendage. Postoperative acute blood loss anemia, expected outcome due to hemodilution. The patient was seen in follow-up today 10/07/2020 at her bedside in the intensive care unit. Currently she is sitting up to the bedside chair, is awake, alert and is in no acute apparent distress. She denies any complaints of pain or shortness of breath at this time. Reports she feels much improved today. She remains hemodynamically stable and is currently on no inotropic or pressor support. Her bedside telemetry showing normal sinus rhythm heart rate 84 BPM. Her chest tubes were removed yesterday without incident. Her chest x- ray shows no evident pneumothorax post chest tube removal. Her bedside nurse reports that she walked over 600 feet this morning with minimal assistance. Oxygen saturation are 94% on room air and she is achieving 1000 mL on her incentive spirometry with encouragement. Objective - Vital Signs Vital signs: Vital Signs Temp 98.2 F 10/07/20 04:00 Pulse 84 10/07/20 08:59 Resp 20 10/07/20 06:00 BP 100/61 10/07/20 06:00 Pulse Ox 94 L 10/07/20 06:00 Intake & Output 10/06/20 10/07/20 10/07/20 18:59 06:59 18:59 Intake Total 78 400 Output Total 760 520 Balance -682 -120 Weight 91.9 kg 90.8 kg Intake: IV 78 Lactated Ringers 1,000 ml 60 @ 20 mls/hr IV .Q24H [facility] Rx#:[id number] Pressure bags 18 Oral 400 Output: Drainage 10 Left Wrist 10 Urine 750 520 Other: Voiding Method Indwelling Catheter Bedside Commode # Voids 1 ABP, PAP, CO, CI - Last Documented Arterial Blood Pressure 131/60 - Constitutional General appearance: Present: cooperative, no acute distress, obese - EENT Eyes: Present: normal appearance. Absent: scleral icterus ENT: Present: hard of hearing - Neck Details: Neck is supple, no JVD. Neck: Absent: lymphadenopathy - Respiratory Details: Lung sounds are essentially clear throughout, diminished bilateral bases. No wheezes, rhonchi or crackles. Respirations are symmetrical and nonlabored. Oxygen saturation are 94% on room air. Achieving 1000 mL on her incentive spirometry. - Cardiovascular Details: Regular rhythm and rate. S1 and S2 present, negative for S3, gallop or murmur. Bedside telemetry showing normal sinus rhythm heart rate 84 BPM. Sternum is stable. Heart hugger is in place and she is demonstrating appropriate use. Knee-high MILDRED hose and sequential compression devices in place to bilateral lower extremities. No edema present. - Gastrointestinal Gastrointestinal Comment(s): Abdomen is soft, nontender and nondistended. Active bowel sounds present in all 4 abdominal quadrants. No guarding or rigidity. No organomegaly appreciated. Tolerating oral intake. Passing flatus. - Genitourinary Genitourinary Comment(s): Continues to void. 700 mL of urine output in the last 8 hours. - Integumentary Integumentary Comment(s): Skin is warm and dry. No clubbing or cyanosis is present. Midline sternal incision is clean, dry and approximated. No drainage or redness is present. Gauze dressing is clean, dry and intact. - Neurologic Neurologic: Present: CNII-XII intact. Absent: focal deficits - Musculoskeletal Musculoskeletal: Present: gait normal, strength equal bilaterally - Psychiatric Psychiatric: Present: A&O x's 3, appropriate affect, intact judgment & insight - Allied health notes Allied health notes reviewed: nursing - Labs CBC & Chem 7: 10/07/20 03:28 10/07/20 03:28 Labs: Abnormal Lab Results - Last 24 Hours (Table) 10/06/20 10/06/20 10/06/20 Range/Units 11:33 16:24 20:41 RBC (3.80-5.40) m/uL Hgb (11.4-16.0) gm/dL Hct (34.0-46.0) % Plt Count (150-450) k/uL Sodium (137-145) mmol/L BUN (7-17) mg/dL POC Glucose (mg/dL) 114 H 160 H 147 H (75-99) mg/dL Calcium (8.4-10.2) mg/dL ALT (4-34) U/L Total Protein (6.3-8.2) g/dL Albumin (3.5-5.0) g/dL 10/07/20 10/07/20 10/07/20 Range/Units 03:28 03:28 06:41 RBC 3.42 L (3.80-5.40) m/uL Hgb 10.1 L (11.4-16.0) gm/dL Hct 30.6 L (34.0-46.0) % Plt Count 142 L (150-450) k/uL Sodium 132 L (137-145) mmol/L BUN 23 H (7-17) mg/dL POC Glucose (mg/dL) 105 H (75-99) mg/dL Calcium 8.2 L (8.4-10.2) mg/dL ALT 38 H (4-34) U/L Total Protein 5.1 L (6.3-8.2) g/dL Albumin 2.9 L (3.5-5.0) g/dL - Imaging and Cardiology Chest x-ray: report reviewed, image reviewed Assessment and Plan Assessment: 1. Coronary artery disease, status post three-vessel off pump coronary artery bypass grafting surgery 2. History of paroxysmal atrial fibrillation, status post bilateral pulmonary vein ablation and ligation of the left atrial appendage 3. History of hypertension 4. History of hyperlipidemia 5. History of obstructive sleep apnea 6. Osteoarthritis 7. Postoperative acute blood loss anemia, expected Plan: 1. Continue aspirin, statin, Plavix, and beta reggie. Will increase metoprolol tartrate as tolerated. 2. Encourage incentive spirometry use 10 times every hour while awake. Bronchodilators per pulmonary/critical care medicine. 3. Increase activity, ambulate as tolerated. PT/OT/cardiac rehab following. 4. Risk factor modification discussed, continue to encourage smoking cessation. 5. Will monitor daily labs and chest x-rays. Electrolyte replacement per protocol. 6. Pain control current when necessary medication regimen. 7. GI/DVT prophylaxis. 8. Insulin management per primary care service. Patient is not a diabetic, preoperative hemoglobin A1c 6.0 % 9. Lasix 20 mg IV 1 now. 10. First postoperative shower today. 11. Continue Norvasc 2.5 mg by mouth daily at noon for radial artery spasm prophylaxis. Please do not discontinue Norvasc without checking with cardio thoracic surgery service please. 12. Transferred to the third floor cardiac stepdown unit when bed available. Transfer orders placed yesterday 10/06/2020. 13. Discharge planning in place. Anticipate discharge home within the next 24 hours with home health care. 14. More recommendations to follow based on patient's clinical course. Time with Patient: Greater than 30
--- NOTE | 2020-10-07 09:35 | P.PN ---
Subjective HISTORY OF PRESENTING ILLNESS This is a pleasant 65-year-old female past medical history significant for atrial fibrillation, hypertension, arthritis, sleep apnea, neuropathy, borderline diabetes mellitus and recently diagnosed coronary artery disease who presented for elective CABG. She follows in the office with Dr. Lane. She had been noticing complaints of increasing dyspnea on exertion as well as chest pain and therefore Dr. Alvarez performed stress test which was abnormal. She had a heart catheterization performed at [facility], report not currently available however reported 70% left main, 90% proximal LAD, small diagonal 90% stenosis, small ramus 80% stenosis and a large obtuse marginal 90% stenosis. On 10/04/2020 patient underwent successful off-pump CABG 3 with ALVARADO to diagonal and LAD and left radial artery graft to the obtuse marginal branch as well as bilateral pulmonary vein ablation and ligation of left atrial appendage. She did well with surgery and currently is seen sitting up in a chair. She denies any chest pain or pressure other than the incision. She does admit to some left rib cage pain with palpation however predominantly controlled with the meds. Vital signs stable, blood pressure 120/53, heart rate 75. She has been in sinus rhythm. 10/06/20 Patient seen and examined. Patient admits to some chest pain which she believes is related to her incision. Denies any shortness breath. Sodium low at 132 and white blood cell 12.2, creatinine 0.83 and hemoglobin 10.4. AST improved to 51 and ALT 63. 10/07/20 Patient seen and examined. Patient denies any shortness breath, admits to s imilar chest pain around incision site. Sodium noted to be low at 132, hemoglobin 10.1, AST 36, ALT 38. Blood pressures have been somewhat soft with systolics in the low 100s. REVIEW OF SYSTEMS At the time of my exam: CONSTITUTIONAL: Denies fever or chills. CARDIOVASCULAR: +chest pain at incision, no shortness of breath, orthopnea, PND or palpitations. RESPIRATORY: Denies cough. GASTROINTESTINAL: Denies abdominal pain, diarrhea, constipation, nausea or vomiting. MUSCULOSKELETAL: Denies myalgias. NEUROLOGIC: Denies numbness, tingling or weakness. ENDOCRINE: Denies fatigue, weight change, polydipsia or polyurina. GENITOURINARY: Denies burning, hematuria or urgency with micturation. HEMATOLOGIC: Denies history of anemia or bleeding. PHYSICAL EXAMINATION Vital signs reviewed CONSTITUTIONAL: No apparent distress. HEENT: Head is normocephalic. Pupils are equal, round. Sclerae anicteric. Mucous membranes of the mouth are moist. No JVD. No carotid bruit. CHEST EXAMINATION: Lungs are clear to auscultation. No chest wall tenderness is noted on palpation or with deep breathing. HEART EXAMINATION: Regular rate and rhythm. S1, S2 heard. No murmurs, gallops or rub. +sternotomy incision ABDOMEN: Soft, nontender. Positive bowel sounds. EXTREMITIES: 2+ peripheral pulses, no lower extremity edema and no calf tenderness. NEUROLOGIC EXAMINATION: Patient is awake, alert and oriented x3. ASSESSMENT 1. Coronary artery disease status post ALVARADO to LAD and diagonal as well as left radial artery to OM 10/04/2020 2. Persistent atrial fibrillation status post pulmonary vein ablation intra operatively 10/04/2020, currently normal sinus rhythm 3. Essential hypertension 4. Hyperlipidemia 5. Leukocytosis 6. Borderline diabetes mellitus 7. Obesity 8. Mildly elevated liver enzymes improved PLAN Patient appears to be recovering well. Continue with low-dose amlodipine for her radial artery graft. Continue amiodarone drip per cardiothoracic surgery. Continue aspirin and Plavix and begin anticoagulation when deemed appropriate by cardiothoracic surgery for her history of atrial fibrillation. Continue Lopressor 25 mg twice a day. Objective - Vital Signs Vital signs: Vital Signs Temp 98.2 F 10/07/20 04:00 Pulse 84 10/07/20 09:12 Resp 20 10/07/20 06:00 BP 100/61 10/07/20 06:00 Pulse Ox 94 L 10/07/20 06:00 Intake & Output 10/06/20 10/07/20 10/07/20 18:59 06:59 18:59 Intake Total 78 400 Output Total 760 520 Balance -682 -120 Weight 91.9 kg 90.8 kg Intake: IV 78 Lactated Ringers 1,000 ml 60 @ 20 mls/hr IV .Q24H [facility] Rx#:[id number] Pressure bags 18 Oral 400 Output: Drainage 10 Left Wrist 10 Urine 750 520 Other: Voiding Method Indwelling Catheter Bedside Commode # Voids 1 ABP, PAP, CO, CI - Last Documented Arterial Blood Pressure 131/60 - Labs CBC & Chem 7: 10/07/20 03:28 10/07/20 03:28 Labs: Abnormal Lab Results - Last 24 Hours (Table) 10/06/20 10/06/20 10/06/20 Range/Units 11:33 16:24 20:41 RBC (3.80-5.40) m/uL Hgb (11.4-16.0) gm/dL Hct (34.0-46.0) % Plt Count (150-450) k/uL Sodium (137-145) mmol/L BUN (7-17) mg/dL POC Glucose (mg/dL) 114 H 160 H 147 H (75-99) mg/dL Calcium (8.4-10.2) mg/dL ALT (4-34) U/L Total Protein (6.3-8.2) g/dL Albumin (3.5-5.0) g/dL 10/07/20 10/07/20 10/07/20 Range/Units 03:28 03:28 06:41 RBC 3.42 L (3.80-5.40) m/uL Hgb 10.1 L (11.4-16.0) gm/dL Hct 30.6 L (34.0-46.0) % Plt Count 142 L (150-450) k/uL Sodium 132 L (137-145) mmol/L BUN 23 H (7-17) mg/dL POC Glucose (mg/dL) 105 H (75-99) mg/dL Calcium 8.2 L (8.4-10.2) mg/dL ALT 38 H (4-34) U/L Total Protein 5.1 L (6.3-8.2) g/dL Albumin 2.9 L (3.5-5.0) g/dL
[2020-10-07 11:02] LABS: Glucose,Whole Blood 125 mg/dL (75-99)
[2020-10-07 13:30] LABS: Glucose,Whole Blood 141 mg/dL (75-99)
[2020-10-07 16:31] LABS: Glucose,Whole Blood 112 mg/dL (75-99)
--- NOTE | 2020-10-07 17:52 | PN ---
PROGRESS NOTE DATE OF SERVICE: 10/07/2020 I am covering for Dr. Vo. INTERVAL HISTORY: This is 65-year-old woman who was admitted with multiple medical problems and underwent CABG. Patient is being closely monitored at this time. The most recent chest x-ray which was reviewed personally by me showed some atelectasis. The blood sugar is being closely monitored at this time is between 105 and 112. The patient was given Accu-Cheks before meals and HS at this time. The patient was not taking any antidiabetic medication previously. PAST MEDICAL HISTORY: Reviewed. REVIEW OF SYSTEMS: CARDIOVASCULAR: No angina. RESPIRATORY: As mentioned earlier. GI: As mentioned earlier. : No dysuria. NERVOUS SYSTEM: No numbness or weakness. CURRENT MEDICATIONS: Reviewed and include Tylenol, DuoNeb, amiodarone, Lipitor. PHYSICAL EXAMINATION: GENERAL: Patient is alert and oriented times three. VITAL SIGNS: Pulse 86, blood pressure 104/60, respirations 27, temperature 98.3, pulse ox 94% on room air. HEENT: Conjunctivae normal. Oral mucosa moist. NECK: No jugular venous distention. No carotid bruits. No lymph node enlargement. RESPIRATORY: Breath sounds diminished at the bases. A few scattered rhonchi. HEART: S1 and S2, muffled. ABDOMEN: Soft, no tenderness. NERVOUS: No focal deficits. LABS: WBC 8.7, hemoglobin 10.2, other labs noted. Accu-Cheks noted. ASSESSMENT: 1. Coronary artery disease, status post coronary artery bypass graft. 2. Atrial fibrillation, paroxysmal. 3. Hypertension. 4. Hyperlipidemia. 5. History of degenerative joint disease. 6. Elevated random glucose. 7. Obstructive sleep apnea history. 8. History of pancreatitis. 9. History of using CPAP. 10.History of cholecystectomy. 11.History of depression. 12.History of nicotine dependence. 13.Obesity with body mass index of 34.8. 14.FULL CODE. RECOMMENDATIONS AND DISCUSSION: Recommend to continue current management and continue symptomatic treatment. Incentive spirometry. Otherwise repeat labs. Monitor closely. Guarded prognosis. Further recommendations to follow. MMODL / IJN: [id number] /
[2020-10-07 20:25] LABS: Glucose,Whole Blood 171 mg/dL (75-99)
[2020-10-07] MEDS: ACETAMINOPHEN TAB 500 MG TAB PO PRN (20:45)
[2020-10-07] MEDS: SENNOSIDES-DOCUSATE SODIUM 1 EACH TAB PO SCH (20:47)
[2020-10-07] MEDS: AMITRIPTYLINE HCL 25 MG TAB PO SCH (20:47)
[2020-10-08 04:34] LABS: MCH 29.5 pg (25.0-35.0); MCHC 33.2 g/dL (31.0-37.0); MCV 88.6 fL (80.0-100.0); Mean Platelet Volume 8.6; Platelet Count 168 k/uL (150-450); RBC 3.38 m/uL (3.80-5.40); RDW 13.4 % (11.5-15.5); WBC 8.4 k/uL (3.8-10.6)
[2020-10-08 05:05] LABS: Calcium 8.3 mg/dL (8.4-10.2); Potassium 4.1 mmol/L (3.5-5.1)
[2020-10-08] MEDS: HEPARIN SODIUM,PORCINE 5,000 UNIT/ML 1 ML VIAL SQ SCH (05:51)
[2020-10-08] MEDS: ACETAMINOPHEN TAB 500 MG TAB PO PRN (06:43)
[2020-10-08 07:02] LABS: Glucose,Whole Blood 113 mg/dL (75-99)
[2020-10-08] MEDS ORDERED: KETOROLAC 15 MG/ML 1 ML VIAL IVP STA (07:48)
[2020-10-08] MEDS: INSULIN ASPART (NovoLOG) 100 UNIT/ML VIAL SQ SCH ×4 (08:04→20:47)
[2020-10-08] MEDS: IPRATROPIUM-ALBUTEROL 3 ML NEB INHALATION SCH ×5 (08:10→21:25)
[2020-10-08] MEDS: GABAPENTIN 300 MG CAP PO SCH ×3 (08:21→20:47)
[2020-10-08] MEDS: ATORVASTATIN 40 MG TAB PO SCH (08:21)
[2020-10-08] MEDS: ASPIRIN 325 MG TAB PO SCH (08:21)
[2020-10-08] MEDS: METOPROLOL TARTRATE 25 MG TAB PO SCH (08:21)
[2020-10-08] MEDS: CITALOPRAM HYDROBROMIDE 20 MG TAB PO SCH (08:21)
[2020-10-08] MEDS: PANTOPRAZOLE 40 MG TABLET PO SCH (08:21)
[2020-10-08] MEDS: CLOPIDOGREL 75 MG TAB PO SCH (08:21)
[2020-10-08] MEDS: amLODIPine 2.5 MG TAB PO SCH (08:21)
[2020-10-08] MEDS ORDERED: METOPROLOL TARTRATE 25 MG TAB PO STA (08:31)
[2020-10-08] MEDS ORDERED: bisacodyL 10 MG SUPP RECTAL STA (08:49)
[2020-10-08] MEDS: APIXABAN 5 MG TAB PO SCH ×2 (08:53→20:47)
--- NOTE | 2020-10-08 08:53 | P.PN ---
Subjective Progress Note Date: 10/08/20 Principal diagnosis: Coronary artery disease. Past medical history significant for atrial fibrillation, dating back to 2014, hypertension, hyperlipidemia, obstructive sleep apnea, and osteoarthritis. POD #4 off-pump coronary artery bypass grafting 3 with sequential ALVARADO to the diagonal coronary artery and left anterior descending coronary artery and left radial artery graft to the obtuse marginal coronary artery. Bilateral pulmonary vein ablation with ligation of the left atrial appendage. Postoperative acute blood loss anemia, expected outcome due to hemodilution. The patient was seen in follow-up today 10/08/2020 at her bedside in the intensive care unit. Currently she is sitting up to the bedside chair, is awake, alert and is in no acute apparent distress. She denies any complaints of pain or shortness of breath at this time. She does complain of some pain to her sternum with coughing. This morning on examination the patient was in normal sinus rhythm heart rate 89 BPM. She did go into atrial fibrillation with RVR heart rate in the 140s to 150s. She is currently on metoprolol 25 mg by mouth twice a day. Oxygen saturations are 96% on room air. She is achieving 1000 mL on her incentive spirometry with encouragement. She's been ambulating in the intensive care unit hallway with minimal assistance from nursing staff. Her T- max temperature in the last 24 hours wa 100.9F, she was encouraged to use her incentive spirometry 10 times every hour while awake. Objective - Vital Signs Vital signs: Vital Signs Temp 99.1 F 10/08/20 08:00 Pulse 88 10/08/20 08:17 Resp 20 10/08/20 08:00 BP 138/85 10/08/20 08:00 Pulse Ox 96 10/08/20 08:00 Intake & Output 10/07/20 10/08/20 10/08/20 18:59 06:59 18:59 Intake Total 800 300 Output Total 1050 750 Balance -250 -450 Weight 89.7 kg Intake: Oral 800 300 Output: Urine 1050 750 Other: Voiding Method Toilet Bedside Commode Bedside Commode Bedside Commode # Voids 3 1 ABP, PAP, CO, CI - Last Documented Arterial Blood Pressure 131/60 - Constitutional General appearance: Present: cooperative, no acute distress, obese - EENT Eyes: Present: normal appearance. Absent: scleral icterus ENT: Present: hard of hearing - Neck Details: Neck is supple, no JVD. Neck: Absent: lymphadenopathy - Respiratory Details: Lung sounds essentially clear throughout, diminished bilateral bases. Respirations are symmetrical and nonlabored. Oxygen saturation are 96% on room air. Achieving 1000 mL on her incentive spirometry with much encouragement. - Cardiovascular Details: Regular rhythm and rate. S1 and S2 present, negative for S3, gallop or murmur. Sternum is stable. Heart hugger is in place and she is demonstrating appro priate use. Knee-high MILDRED hose and sequential compression devices in place to bilateral lower extremities. No edema present. - Gastrointestinal Gastrointestinal Comment(s): Abdomen is soft, nontender and nondistended. Active bowel sounds present in all 4 abdominal quadrants. No guarding or rigidity. No organomegaly appreciated. Tolerating oral intake. - Genitourinary Genitourinary Comment(s): Continues to void. 450 mL output in the last 8 hours. - Integumentary Integumentary Comment(s): Skin is warm and dry. No clubbing or cyanosis is present. Midline sternal in cision is clean, dry and approximated. No drainage or redness is present. Left arm radial artery harvest site clean, dry and approximated. No drainage or redness is present. Ulnar pulse palpable to her left arm. - Neurologic Neurologic: Present: CNII-XII intact. Absent: focal deficits - Musculoskeletal Musculoskeletal: Present: gait normal, strength equal bilaterally - Psychiatric Psychiatric: Present: A&O x's 3, appropriate affect, intact judgment & insight - Allied health notes Allied health notes reviewed: nursing - Labs CBC & Chem 7: 10/08/20 03:58 10/08/20 03:58 Labs: Abnormal Lab Results - Last 24 Hours (Table) 10/07/20 10/07/20 10/07/20 Range/Units 11:01 13:29 16:29 RBC (3.80-5.40) m/uL Hgb (11.4-16.0) gm/dL Hct (34.0-46.0) % Sodium (137-145) mmol/L BUN (7-17) mg/dL Glucose (74-99) mg/dL POC Glucose (mg/dL) 125 H 141 H 112 H (75-99) mg/dL Calcium (8.4-10.2) mg/dL 10/07/20 10/08/20 10/08/20 Range/Units 20:24 03:58 03:58 RBC 3.38 L (3.80-5.40) m/uL Hgb 10.0 L (11.4-16.0) gm/dL Hct 30.0 L (34.0-46.0) % Sodium 135 L (137-145) mmol/L BUN 20 H (7-17) mg/dL Glucose 107 H (74-99) mg/dL POC Glucose (mg/dL) 171 H (75-99) mg/dL Calcium 8.3 L (8.4-10.2) mg/dL 10/08/20 Range/Units 07:01 RBC (3.80-5.40) m/uL Hgb (11.4-16.0) gm/dL Hct (34.0-46.0) % Sodium (137-145) mmol/L BUN (7-17) mg/dL Glucose (74-99) mg/dL POC Glucose (mg/dL) 113 H (75-99) mg/dL Calcium (8.4-10.2) mg/dL - Imaging and Cardiology Chest x-ray: report reviewed, image reviewed Assessment and Plan Assessment: 1. Coronary artery disease, status post three-vessel off pump coronary artery bypass grafting surgery 2. History of paroxysmal atrial fibrillation, status post bilateral pulmonary vein ablation and ligation of the left atrial appendage 3. History of hypertension 4. History of hyperlipidemia 5. History of obstructive sleep apnea 6. Osteoarthritis 7. Previous tobacco dependence, with recent cessation 8. Moderate COPD with a preoperative FEV1 of 67% of predicted value 9. Postoperative acute blood loss anemia, expected Plan: 1. Continue low-dose aspirin, statin, and beta reggie. Will increase metoprolol tartrate to 50 mg by mouth twice a day. 2. Encourage incentive spirometry use 10 times every hour while awake. Bronchodilators per pulmonary/critical care medicine. 3. Increase activity, ambulate as tolerated. PT/OT/cardiac rehab following. 4. Risk factor modification discussed, continue to encourage smoking cessation. 5. Will monitor daily labs and chest x-rays. Electrolyte replacement per protocol. 6. Pain control current when necessary medication regimen. 7. GI/DVT prophylaxis. 8. Insulin management per primary care service. Patient is not a diabetic, preoperative hemoglobin A1c 6.0 % 9. Start amiodarone IV per protocol for atrial fibrillation prophylaxis. Start Eliquis 5 mg by mouth twice a day. 10. Discontinue Plavix, decrease aspirin to 81 mg by mouth daily. 11. Continue Norvasc 2.5 mg by mouth daily at noon for radial artery spasm prophylaxis. Please do not discontinue Norvasc without checking with cardiothoracic surgery service please. 12. Transferred to the third floor cardiac stepdown unit when bed available. Transfer orders placed on 10/06/2020. 13. Discharge planning in place. Anticipate discharge home within the next 24 hours with home health care. 14. More recommendations to follow based on patient's clinical course. Time with Patient: Greater than 30
[2020-10-08] MEDS ORDERED: ASPIRIN 81 MG PO SCH (09:00)
[2020-10-08] MEDS ORDERED: FUROSEMIDE 10 MG/ML 2 ML VIAL IV ONE (09:49)
--- NOTE | 2020-10-08 10:15 | XR ---
EXAMINATION TYPE: XR chest 1V portable DATE OF EXAM: 10/08/2020 COMPARISON: NONE HISTORY: Pain TECHNIQUE: Single frontal view of the chest is obtained. FINDINGS: There is a deformity of the left first rib. No sizable pneumothorax. Postoperative change with bilateral consolidation and small effusion stable. No overt failure. No sizable pneumothorax. He art enlarged. IMPRESSION: 1. Basilar infiltrate and pleural effusion stable. 2. Correlate for left first rib fracture.
[2020-10-08 11:47] LABS: Glucose,Whole Blood 137 mg/dL (75-99)
--- NOTE | 2020-10-08 12:01 | P.PN ---
Subjective Progress Note Date: 10/08/20 This is a 65-year-old female history of atrial fibrillation, hypertension, borderline diabetes, who had elective CABG. The catheterization was done at [facility]. It showed 70% left main, 90% proximal LAD, 80% intermediate and 90% OM branch. Patient underwent bypass surgery on 10/04/2020 with the ALVARADO to the LAD and diagonal, radial artery to the OM branch with bilateral pulmonary vein ablation and ligation of the left great H. Patient has been coming along with. Patient went to atrial fibrillation with rapid ventricular response this morning. PT patient is being initiated on IV amiodarone. She is also already on eliquis. Patient is otherwise denying any Sigmund chest pain or shortness of breath. Lungs appeared to be clear. Heart is irregular Objective - Vital Signs Vital signs: Vital Signs Temp 99.1 F 10/08/20 08:00 Pulse 101 H 10/08/20 10:00 Resp 18 10/08/20 10:00 BP 138/85 10/08/20 08:00 Pulse Ox 92 L 10/08/20 10:00 Intake & Output 10/07/20 10/08/20 10/08/20 18:59 06:59 18:59 Intake Total 800 300 Output Total 1050 750 Balance -250 -450 Weight 89.7 kg Intake: Oral 800 300 Output: Urine 1050 750 Other: Voiding Method Toilet Bedside Commode Bedside Commode Bedside Commode # Voids 3 1 ABP, PAP, CO, CI - Last Documented Arterial Blood Pressure 131/60 - Exam GENERAL EXAM: Patient is alert and oriented and doesn't appear to be in any acute distress HEENT: Normocephalic. Normal reaction of pupils, equal size, normal range of extraocular motion. No erythema or exudates in the throat. NECK: No masses, no nuchal rigidity. CHEST: No chest wall deformity. LUNGS: Equal air entry with no crackles or wheeze. HEART: S1 and S2 normal, tachycardic and irregular ABDOMEN: No hepatosplenomegaly, normal bowel sounds, no guarding or rigidity. SKIN: No rashes CENTRAL NERVOUS SYSTEM: No focal deficits. EXTREMITIES: No cyanosis, clubbing or edema. - Labs CBC & Chem 7: 10/08/20 03:58 10/08/20 03:58 Labs: Abnormal Lab Results - Last 24 Hours (Table) 10/07/20 10/07/20 10/07/20 Range/Units 13:29 16:29 20:24 RBC (3.80-5.40) m/uL Hgb (11.4-16.0) gm/dL Hct (34.0-46.0) % Sodium (137-145) mmol/L BUN (7-17) mg/dL Glucose (74-99) mg/dL POC Glucose (mg/dL) 141 H 112 H 171 H (75-99) mg/dL Calcium (8.4-10.2) mg/dL 10/08/20 10/08/20 10/08/20 Range/Units 03:58 03:58 07:01 RBC 3.38 L (3.80-5.40) m/uL Hgb 10.0 L (11.4-16.0) gm/dL Hct 30.0 L (34.0-46.0) % Sodium 135 L (137-145) mmol/L BUN 20 H (7-17) mg/dL Glucose 107 H (74-99) mg/dL POC Glucose (mg/dL) 113 H (75-99) mg/dL Calcium 8.3 L (8.4-10.2) mg/dL 10/08/20 Range/Units 11:46 RBC (3.80-5.40) m/uL Hgb (11.4-16.0) gm/dL Hct (34.0-46.0) % Sodium (137-145) mmol/L BUN (7-17) mg/dL Glucose (74-99) mg/dL POC Glucose (mg/dL) 137 H (75-99) mg/dL Calcium (8.4-10.2) mg/dL Assessment and Plan (1) Status post aorto-coronary artery bypass graft Current Visit: Yes Status: Acute Code(s): Z95.1 - PRESENCE OF AORTOCORONARY BYPASS GRAFT SNOMED Code(s): 395387359 (2) Atrial fibrillation with RVR Current Visit: Yes Status: Acute Code(s): I48.91 - UNSPECIFIED ATRIAL FIBRILLATION SNOMED Code(s): 733626960350122 (3) Essential hypertension Current Visit: Yes Status: Acute Code(s): I10 - ESSENTIAL (PRIMARY) HYPERTENSION SNOMED Code(s): 43204152 Plan: Continue with IV amiodarone and anticoagulation along with beta reggie. Continue with the respiratory toilet and her physical therapy. We'll follow
--- NOTE | 2020-10-08 14:59 | P.PN ---
Subjective Progress Note Date: 10/08/20 Principal diagnosis: Status post off pump CABG 3, postoperative day #4 Patient is a postoperative day #4, off pump coronary artery bypass grafting 3 with ALVARADO to diagonal and LAD and the left radial artery graft to obtuse marginal, bilateral pulmonary vein ablation with ligation of left atrial appendage. Patient remains in the ICU, however she is in atrial fibrillation with RVR at present, and amiodarone is about to be bolused and she'll be placed on a drip of amiodarone. She has been on metoprolol 25 mg twice a day. Patient is on room air, O2 saturations 96%. She is achieving over thousand cc on her incentive spirometer. And she has been ambulating in the hallway. Chest x-ray showed minimal atelectasis, no clear-cut evidence of pneumonia CBC and basic metabolic profile is normal. Renal profile is normal Objective - Vital Signs Vital signs: Vital Signs Temp 98.1 F 10/08/20 12:00 Pulse 70 10/08/20 14:00 Resp 21 10/08/20 14:00 BP 100/79 10/08/20 14:00 Pulse Ox 94 L 10/08/20 14:00 Intake & Output 10/07/20 10/08/20 10/08/20 18:59 06:59 18:59 Intake Total 800 300 Output Total 1050 750 800 Balance -250 -450 -800 Weight 89.7 kg Intake: Oral 800 300 Output: Urine 1050 750 800 Other: Voiding Method Toilet Bedside Commode Bedside Commode Bedside Commode # Voids 3 1 # Bowel Movements 2 ABP, PAP, CO, CI - Last Documented Arterial Blood Pressure 131/60 - Exam Physical Exam: Revealed 65-year-old female in no distress, on room air. Head: Atraumatic, normocephalic. HEENT:[Neck is supple.] [No neck masses.] [No thyromegaly.] [No JVD.] Chest: [Clear throughout, no crackles, no rhonchi, no wheezes.] Symmetrical chest expansion. Cardiac Exam: Tachycardic, irregular rhythm. [Normal S1 and S2, no S3 gallop, no murmur.] Abdomen: [Soft, nontender, no megaly, no rebound, no guarding, normal bowel sounds.] Extremities: [No clubbing, no edema, no cyanosis.] Neurological Exam: [No focal neurologic deficit.] Alert and oriented 3 Psychiatric: Normal mood, affect and normal mental status examination. Skin: No rashes. Muscular skeletal: No limitation in range of motion. No deformities - Labs CBC & Chem 7: 10/08/20 03:58 10/08/20 03:58 Labs: Abnormal Lab Results - Last 24 Hours (Table) 10/07/20 10/07/20 10/08/20 Range/Units 16:29 20:24 03:58 RBC 3.38 L (3.80-5.40) m/uL Hgb 10.0 L (11.4-16.0) gm/dL Hct 30.0 L (34.0-46.0) % Sodium (137-145) mmol/L BUN (7-17) mg/dL Glucose (74-99) mg/dL POC Glucose (mg/dL) 112 H 171 H (75-99) mg/dL Calcium (8.4-10.2) mg/dL 10/08/20 10/08/20 10/08/20 Range/Units 03:58 07:01 11:46 RBC (3.80-5.40) m/uL Hgb (11.4-16.0) gm/dL Hct (34.0-46.0) % Sodium 135 L (137-145) mmol/L BUN 20 H (7-17) mg/dL Glucose 107 H (74-99) mg/dL POC Glucose (mg/dL) 113 H 137 H (75-99) mg/dL Calcium 8.3 L (8.4-10.2) mg/dL Assessment and Plan Assessment: Impression: Status post CABG 3, off pump. Postoperative day #4. Paroxysmal atrial fibrillation Benign essential hypertension Dyslipidemia Obstructive sleep apnea syndrome Moderate COPD FEV1 of 67%. Ex-smoker. Postoperative blood loss anemia expected. Recommendation: Agree with amiodarone bolus and drip for her atrial fibrillation with RVR at present. Continue aspirin statins and beta blockers and increase beta blockers accordingly. Continue incentive spirometry. Continue ambulation. Continue pain control. Continue GI and DVT prophylaxis. Continue insulin as needed and as per protocol. Continue to monitor daily labs and daily x-rays of the chest. We'll continue to follow Time with Patient: Less than 30
--- NOTE | 2020-10-08 15:45 | PN ---
PROGRESS NOTE DATE OF SERVICE: 10/08/2020 I am covering for Dr. Vo. This 65-year-old woman who was admitted for CAD, CABG, which is improving significantly. No chest pain. No palpitations. No fever. Most recent chest x-ray which I reviewed personally showed some basilar atelectasis and Accu-Cheks are 113 and 137. Sodium is 135. No chest pain. No palpitations. No fever. PHYSICAL EXAMINATION: The patient is alert and oriented x3. Pulse is 69, blood pressure 105/70, respirations 16, temperature 98.1, pulse ox 94% on room air. HEENT: Conjunctivae normal. NECK: No jugular venous distention. CARDIOVASCULAR: S1, S2 muffled. RESPIRATORY: Breath sounds diminished at the bases. A few scattered rhonchi. ABDOMEN: Soft. NERVOUS SYSTEM: No focal deficits. LABS: WBC is 8.4, hemoglobin 10, sodium 135. ASSESSMENT: 1. Coronary artery disease, coronary artery bypass grafting. 2. Atrial fibrillation, paroxysmal. 3. Hypertension. 4. Hyperlipidemia. 5. History of degenerative joint disease. 6. History of increased elevated random glucose. 7. Obstructive sleep apnea. 8. History of pancreatitis. 9. History of using CPAP. 10.History of cholecystectomy. 11.History of depression. 12.History of nicotine dependence. 13.Obesity with body mass index of 34.8. 14.FULL CODE. RECOMMENDATIONS AND DISCUSSION: Recommend to continue current medications, continue symptomatic treatment. Continue with incentive spirometry, history of amiodarone drip. Closely follow. DVT prophylaxis. Further recommendations to follow. MMODL / IJN: [id number] /
[2020-10-08 16:55] LABS: Glucose,Whole Blood 152 mg/dL (75-99)
[2020-10-08 20:36] LABS: Glucose,Whole Blood 195 mg/dL (75-99)
[2020-10-08] MEDS: METOPROLOL TARTRATE 50 MG TAB PO SCH (20:47)
[2020-10-08] MEDS: SENNOSIDES-DOCUSATE SODIUM 1 EACH TAB PO SCH (20:47)
[2020-10-08] MEDS: AMITRIPTYLINE HCL 25 MG TAB PO SCH (20:58)
[2020-10-09 04:21] LABS: HCT 31.2 % (34.0-46.0); HGB 10.3 gm/dL (11.4-16.0); MCH 29.4 pg (25.0-35.0); MCHC 33.1 g/dL (31.0-37.0); Mean Platelet Volume 8.6; Platelet Count 194 k/uL (150-450); RDW 13.3 % (11.5-15.5)
[2020-10-09 04:44] LABS: Calcium 8.5 mg/dL (8.4-10.2); Potassium 3.9 mmol/L (3.5-5.1)
[2020-10-09 06:50] LABS: Glucose,Whole Blood 122 mg/dL (75-99)
[2020-10-09] MEDS: INSULIN ASPART (NovoLOG) 100 UNIT/ML VIAL SQ SCH ×2 (06:50→12:25)
[2020-10-09] MEDS: PANTOPRAZOLE 40 MG TABLET PO SCH (06:53)
[2020-10-09] MEDS ORDERED: POTASSIUM CHLORIDE ER 20 MEQ TAB.ER PO STA (07:02)
[2020-10-09] MEDS ORDERED: FUROSEMIDE 10 MG/ML 2 ML VIAL IV ONE (07:02)
[2020-10-09] MEDS: IPRATROPIUM-ALBUTEROL 3 ML NEB INHALATION SCH ×3 (07:48→11:37)
[2020-10-09] MEDS: ATORVASTATIN 40 MG TAB PO SCH (07:49)
[2020-10-09] MEDS: CITALOPRAM HYDROBROMIDE 20 MG TAB PO SCH (07:49)
[2020-10-09] MEDS: GABAPENTIN 300 MG CAP PO SCH (07:49)
[2020-10-09] MEDS: APIXABAN 5 MG TAB PO SCH (07:49)
[2020-10-09] MEDS: METOPROLOL TARTRATE 50 MG TAB PO SCH (07:49)
[2020-10-09 08:29] VITALS: TEMP 98.3
[2020-10-09] MEDS ORDERED: ASPIRIN 81 MG PO SCH (09:00)
[2020-10-09] MEDS ORDERED: AMIODARONE 200 MG TAB PO SCH (09:00)
[2020-10-09] MEDS ORDERED: DILTIAZEM CD 120 MG CAP.ER.24H PO SCH (09:00)
--- NOTE | 2020-10-09 10:41 | P.DS ---
Providers Date of admission: 10/04/20 05:38 Expected date of discharge: 10/09/20 Attending physician: Iban Rosales Consults: 10/04/20 12:57 Consult Physician Routine Consulting Provider: Adelaide King Consult Reason/Comments: Bar Welder Consult: post cardiac surgery Do you want consulting provider notified?: Yes Consult Physician Routine Consulting Provider: Salvador Vo Consult Reason/Comments: Medical management Do you want consulting provider notified?: Yes Consult Physician Routine Consulting Provider: Sea Lane Consult Reason/Comments: Director Of Community Services Consult: post cardiac surgery Do you want consulting provider notified?: Yes Primary care physician: Stated None Hospital Course: FINAL DIAGNOSIS: 1. Coronary artery disease 2. History of paroxysmal atrial fibrillation 3. History of hypertension 4. History of hyperlipidemia, treated, cholesterol 126, LDL 57 5. Obstructive sleep apnea with home CPAP use) 6. Previous tobacco dependence with recent cessation 7. Moderate COPD, preoperative FEV1 67% of predicted 8. Osteoarthritis, pneumonia 9. Postoperative acute blood loss anemia, expected PRINCIPAL PROCEDURE: 1. Off-pump coronary artery bypass grafting 3 with sequential left internal mammary artery to the diagonal coronary artery and left anterior descending coronary artery, left radial artery to the obtuse marginal coronary artery 2. Bilateral pulmonary vein ablation with ligation of the left atrial appendage HISTORY OF PRESENT ILLNESS: This is a 65-year-old active female who follows on an outpatient basis with Dr. Salvador Vo for primary care and Dr. Lane for cardiology. She was experiencing worsening dyspnea on exertion and was seen by cardiology. She underwent stress testing which was abnormal and was recommended to undergo heart catheterization which revealed left main coronary artery disease with severe stenosis in the circumflex and left anterior descending coronary artery. The patient was referred to Dr. Rosales from cardiothoracic surgery. She was recommended to undergo off-pump CABG with bilateral pulmonary ablation and ligation of left atrial appendage. The usual perioperative course was discussed in detail with the patient and her daughter, all risks and benefits were explained, all questions were answered, and consent was obtained to proceed with surgery. The patient was scheduled for surgery at the earliest possible date with recommendations to stop Eliquis 48 hours prior to surgery. HOSPITAL COURSE: The patient was brought to the hospital on 10/04/20, taken to the preoperative area, prepared in the usual fashion, and subsequently taken to the operating room where Dr. Rosales performed 3 vessel off-pump CABG. Upon completion of surgery the patient was transferred to the cardiovascular intensive care unit where she was recovered and monitored hemodynamically. She was extubated, all lines, tubes, and drips were discontinued when appropriate, and transfer orders were placed for 3 S. cardiac stepdown unit, however there was no bed availability and the patient remained on ICU as a stepdown patient until discharge. Her oxygen was titrated down, she continued to work with physical and occupational therapy, she was tolerating oral diet, her pain was controlled, and she was ready to be discharged to home with [facility] on postoperative day #5. She received written and verbal instruction regarding her medications, activity restrictions, signs and symptoms requiring physician notification, and follow-up appointments. COMPLICATIONS: The patient experienced postoperative acute blood loss anemia which is expected and required no treatment. Patient Condition at Discharge: Stable Plan - Discharge Summary Discharge Rx Participant: Yes New Discharge Prescriptions: New Amiodarone [Cordarone] 200 mg PO DAILY #7 tab Amiodarone [Cordarone] 200 mg PO BID #14 tab Amiodarone [Cordarone] 400 mg PO BID #28 tab Metoprolol Tartrate [Lopressor] 50 mg PO BID #60 tab Sennosides-Docusate Sodium [Senokot-S] 2 each PO HS #14 tab Acetaminophen Tab [Tylenol] 1,000 mg PO Q6HR PRN tab PRN Reason: Fever And/ Or Pain Continue Gabapentin [Neurontin] 300 mg PO TID Apixaban [Eliquis] 5 mg PO BID Omeprazole 20 mg PO DAILY Citalopram Hydrobromide [CeleXA] 20 mg PO DAILY Atorvastatin [Lipitor] 40 mg PO DAILY Aspirin 325 mg PO DAILY Amitriptyline HCl [Elavil] 25 mg PO HS Discontinued atenoloL [Tenormin] 25 mg PO DAILY Losartan [Cozaar] 25 mg PO DAILY Discharge Medication List Gabapentin [Neurontin] 300 mg PO TID 07/07/16 [History] Apixaban [Eliquis] 5 mg PO BID 10/28/18 [History] Citalopram Hydrobromide [CeleXA] 20 mg PO DAILY 10/28/18 [History] Omeprazole 20 mg PO DAILY 10/28/18 [History] Amitriptyline HCl [Elavil] 25 mg PO HS 09/27/20 [History] Aspirin 325 mg PO DAILY 09/27/20 [History] Atorvastatin [Lipitor] 40 mg PO DAILY 09/27/20 [History] Acetaminophen Tab [Tylenol] 1,000 mg PO Q6HR PRN tab 10/09/20 [Rx] Amiodarone [Cordarone] 200 mg PO BID #14 tab 10/09/20 [Rx] Amiodarone [Cordarone] 200 mg PO DAILY #7 tab 10/09/20 [Rx] Amiodarone [Cordarone] 400 mg PO BID #28 tab 10/09/20 [Rx] Metoprolol Tartrate [Lopressor] 50 mg PO BID #60 tab 10/09/20 [Rx] Sennosides-Docusate Sodium [Senokot-S] 2 each PO HS #14 tab 10/09/20 [Rx] Follow up Appointment(s)/Referral(s): Salvador Vo MD [STAFF PHYSICIAN] - 10/23/20 12:[address] MD [STAFF PHYSICIAN] - 10/19/20 1:30 pm (Appointment will be with JUAN ANTONIO Colindres at the [employer] office (the [facility])) [facility] ,Cardiac [NON-STAFF] - 4 Weeks (You will receive a phone call in approximately 4-6 weeks to schedule evaluation for cardiac rehab) Pascale Martinez NPC [Nurse Practitioner] - 11/07/20 3:15 pm Iban Rosales MD [STAFF PHYSICIAN] - 11/01/20 9:45 am Ion Broderick NPC [Nurse Practitioner] - 10/12/20 11:00 am [facility], [NON-STAFF] - 1-2 Days Ambulatory/Diagnostic Orders: Complete Blood Count w/diff [LAB.AMB] Time Frame: 3 Days, Location: None Selected Comprehensive Metabolic Panel [LAB.AMB] Time Frame: 3 Days, Location: None Selected Activity/Diet/Wound Care/Special Instructions: DISCHARGE INSTRUCTIONS: 1. No driving for 4 weeks, or until physician gives their ok. 2. The patient should sleep in their own bed, no medical bed needed. 3. Stairs are not an issue. If the bedroom is upstairs, it is advised that the patient go up at night and down in the morning for the first week. Go slowly, using handrail and take 1 step at a time. 4. MILDRED hose are to be worn for 30 days or until physician discontinues. 5. Heart hugger is to be worn 100% of the time until physician discontinues.(except when showering) 6. No lifting, pushing, or pulling more than 10 pounds for 12 weeks. The physician will advise of any restriction changes. 7. The patient is expected to continue the prescribed walking program. 8. Continue pain control per as needed orders. 9. Continue with incentive spirometry and splinting/heart hugger until otherwise directed by the physician. 10. Must shower daily using liquid antibacterial soap and a separate white washcloth for each individual incision. 11. Routine sternal incision care. No powders, lotions, ointments on incisions. No dressings are necessary on incisions unless they are draining. Dermabond tape is to remain on sternal incision until surgeon follow-up. 12. Please call surgeon/DOUGH MOLDER for temp greater than 101 F or purulent drainage from incisions. 13. All prescriptions given by surgeon for 30 days. Refills need to be filled through c python developer/primary care physician. 14. A Red armband has been placed on the patient. It should be worn for 30 days post surgery and will be removed by the cardiac surgeons. If an ER visit is necessary, please make sure the number on the Red armband is called. 15. You have been referred to and are expected to begin Cardiac Rehab in approximately 4-6 weeks. 16. Risk modifications have been discussed with the patient, and the importance of smoking cessation was reviewed. HOME HEALTH SERVICES TO PROVIDE: RN SKILLED HOME CARE SERVICES FOR POST-OP SURGICAL PATIENTS WITH THE FOLLOWING: Coronary Artery Bypass Surgery (CABG), Mitral Valve Replacement/Repair ( MVR), Aortic Valve Replacement/Repair (AVR) RN TO CONTINUE EDUCATION FROM ``ROAD TO A HEALTH HEART PATIENT EDUCATION MANUAL (GIVEN TO PATIENT IN THE HOSPITAL) MEDICATION RECONCILIATION WITH EDUCATION NEEDED ON FIRST HOME VISIT EMPHASIZE IMPORTANCE OF WEARING BREAST SUPPORT/HEART HUGGER ENCOURAGE USE OF INCENTIVE SPIROMETER 10 X EVERY HOUR WHILE AWAKE ENCOURAGE UTILIZATION OF LOWER EXTREMITY COMPRESSION STOCKINGS/MILDRED HOSE and ELEVATE LEGS ABOVE LEVEL OF HEART WHILE AT REST. ENCOURAGE AMBULATION 3-5x/day INCREASING TOLERATES, WHILE AVOIDING EXTREMES IN TEMPERATURE FREQUENCY: RN TO OPEN THE PATIENT WITHIN 24 HOURS OF DISCHARGE FROM THE HOSPITAL WITH [place]HE[place] [facility] VISIT 2-3 X A WEEK FOR 4 WEEKS ESTABLISHED BY PATIENT NEEDS. LABORATORY: CBC, CMP TO BE DRAWN ON THE THIRD DAY HOME, (RAN STAT) FAX RESULTS TO [phone]. TELEHEALTH PARAMETERS: WEIGHT: NOTIFY MD OF WEIGHT GAIN OF 2 LBS IN 24 HOURS OR 5 LBS IN ONE WEEK HR: NOTIFY MD OF HR <55 BPM OR HR>100 BPM BP: NOTIFY MD IF BP <90/55 OR BP>140/100 O2 SAT: NOTIFY MD IF PO2<93% ON ROOM AIR SEND TELEHEALTH REPORT TO LOCKSTITCH COAT JOINER AND CARDIOVASCULAR SURGEON THE FIRST WEEK OF CARE AND THEN BI-WEEKLY. PLEASE ADDITIONALLY COMMUNICATE ANY ABNORMALS AND NEW FINDINGS TO THE SURGEONS OFFICE. For any questions or concerns please call editor & co founder Zoe @ or Jamar @ Discharge Disposition: HOME WITH HOME HEALTH SERVICES
--- NOTE | 2020-10-09 11:53 | P.PN ---
Subjective Progress Note Date: 10/09/20 This is a 65-year-old female history of atrial fibrillation, hypertension, borderline diabetes, who had elective CABG. The catheterization was done at [facility]. It showed 70% left main, 90% proximal LAD, 80% intermediate and 90% OM branch. Patient underwent bypass surgery on 10/04/2020 with the ALVARADO to the LAD and diagonal, radial artery to the OM branch with bilateral pulmonary vein ablation and ligation of the left great H. Patient has been coming along with. Patient went to atrial fibrillation with rapid ventricular response this morning. PT patient is being initiated on IV amiodarone. She is also already on eliquis. Patient is otherwise denying any Sigmund chest pain or shortness of breath. Lungs appeared to be clear. Heart is irregular. 10/09/2020: Patient is doing well. She is back in sinus rhythm. Denies any chest pain or shortness of breath. Tolerating activity. Lungs are clear. Heart is regular. No JVD. No peripheral edema. Patient is being discharged home. Follow-up in the office in about one or 2 weeks Objective - Vital Signs Vital signs: Vital Signs Temp 98.3 F 10/09/20 08:00 Pulse 72 10/09/20 11:48 Resp 24 10/09/20 08:00 BP 122/76 10/09/20 10:00 Pulse Ox 96 10/09/20 08:00 Intake & Output 10/08/20 10/09/20 10/09/20 18:59 06:59 18:59 Intake Total 600 Output Total 1400 550 Balance -1400 50 Weight 88.3 kg Intake: Oral 600 Output: Urine 1400 550 Other: Voiding Method Bedside Commode Bedside Commode Bedside Commode # Voids 1 # Bowel Movements 2 ABP, PAP, CO, CI - Last Documented Arterial Blood Pressure 131/60 - Exam GENERAL EXAM: Patient is alert and oriented and doesn't appear to be in any acute distress HEENT: Normocephalic. Normal reaction of pupils, equal size, normal range of extraocular motion. No erythema or exudates in the throat. NECK: No masses, no nuchal rigidity. CHEST: No chest wall deformity. LUNGS: Equal air entry with no crackles or wheeze. HEART: S1 and S2 normal, regular ABDOMEN: No hepatosplenomegaly, normal bowel sounds, no guarding or rigidity. SKIN: No rashes CENTRAL NERVOUS SYSTEM: No focal deficits. EXTREMITIES: No cyanosis, clubbing or edema. - Labs CBC & Chem 7: 10/09/20 03:42 10/09/20 03:42 Labs: Abnormal Lab Results - Last 24 Hours (Table) 10/08/20 10/08/20 10/09/20 Range/Units 16:54 20:35 03:42 RBC 3.50 L (3.80-5.40) m/uL Hgb 10.3 L (11.4-16.0) gm/dL Hct 31.2 L (34.0-46.0) % Sodium (137-145) mmol/L BUN (7-17) mg/dL Glucose (74-99) mg/dL POC Glucose (mg/dL) 152 H 195 H (75-99) mg/dL 10/09/20 10/09/20 Range/Units 03:42 06:49 RBC (3.80-5.40) m/uL Hgb (11.4-16.0) gm/dL Hct (34.0-46.0) % Sodium 134 L (137-145) mmol/L BUN 20 H (7-17) mg/dL Glucose 116 H (74-99) mg/dL POC Glucose (mg/dL) 122 H (75-99) mg/dL Assessment and Plan (1) Status post aorto-coronary artery bypass graft Current Visit: Yes Status: Acute Code(s): Z95.1 - PRESENCE OF AORTOCORONARY BYPASS GRAFT SNOMED Code(s): 685991877 (2) Atrial fibrillation with RVR Current Visit: Yes Status: Acute Code(s): I48.91 - UNSPECIFIED ATRIAL FIBRILLATION SNOMED Code(s): 414492385112739 (3) Essential hypertension Current Visit: Yes Status: Acute Code(s): I10 - ESSENTIAL (PRIMARY) HYPERTENSION SNOMED Code(s): 60474481 Plan: Patient is critically stable. Being discharged home today. Follow-up in the office in 2 weeks
[2020-10-09 12:04] LABS: Glucose,Whole Blood 96 mg/dL (75-99)
[2020-10-09 12:42] VITALS: BP 110/71; PULSE 75; RESP 19
--- NOTE | 2020-10-09 13:19 | XR ---
EXAMINATION TYPE: XR chest 1V portable DATE OF EXAM: 10/09/2020 COMPARISON: 10/08/2020 HISTORY: Postop CABG TECHNIQUE: Single frontal view of the chest is obtained. FINDINGS: Bilateral lower lobe infiltrate and small effusion. Postsurgical changes. No pneumothorax. No interstitial edema. Heart mildly enlarged. IMPRESSION: Bilateral lower lobe infiltrate and small effusion.
--- NOTE | 2020-10-09 15:22 | P.PN ---
Subjective Progress Note Date: 10/09/20 Principal diagnosis: Status post off pump CABG 3, postoperative day #5 Patient is a postoperative day #4, off pump coronary artery bypass grafting 3 with ALVARADO to diagonal and LAD and the left radial artery graft to obtuse marginal, bilateral pulmonary vein ablation with ligation of left atrial appendage. Patient remains in the ICU, however she is in atrial fibrillation with RVR at present, and amiodarone is about to be bolused and she'll be placed on a drip of amiodarone. She has been on metoprolol 25 mg twice a day. Patient is on room air, O2 saturations 96%. She is achieving over thousand cc on her incentive spirometer. And she has been ambulating in the hallway. Chest x-ray showed minimal atelectasis, no clear-cut evidence of pneumonia CBC and basic metabolic profile is normal. Renal profile is normal Patient was reevaluated today 10/09/2020, patient seems to be doing fairly well, she is now on oral amiodarone, she is in normal sinus rhythm, relatively asymptomatic, she is being considered for possible discharge home today. Patient is on room air. Chest x-ray showed minimal left basilar atelectasis. Objective - Vital Signs Vital signs: Vital Signs Temp 98.3 F 10/09/20 08:00 Pulse 75 10/09/20 12:00 Resp 19 10/09/20 12:00 BP 110/71 10/09/20 12:00 Pulse Ox 97 10/09/20 12:00 Intake & Output 10/08/20 10/09/20 10/09/20 18:59 06:59 18:59 Intake Total 600 Output Total 1400 550 Balance -1400 50 Weight 88.3 kg Intake: Oral 600 Output: Urine 1400 550 Other: Voiding Method Bedside Commode Bedside Commode Bedside Commode # Voids 1 # Bowel Movements 2 ABP, PAP, CO, CI - Last Documented Arterial Blood Pressure 131/60 - Exam Physical Exam: Revealed 65-year-old female in no distress, on room air. Head: Atraumatic, normocephalic. HEENT:[Neck is supple.] [No neck masses.] [No thyromegaly.] [No JVD.] Chest: [Clear throughout, no crackles, no rhonchi, no wheezes.] Symmetrical ch est expansion. Cardiac Exam: Regular rate and rhythm. [Normal S1 and S2, no S3 gallop, no murmur.] Abdomen: [Soft, nontender, no megaly, no rebound, no guarding, normal bowel sounds.] Extremities: [No clubbing, no edema, no cyanosis.] Neurological Exam: [No focal neurologic deficit.] Alert and oriented 3 Psychiatric: Normal mood, affect and normal mental status examination. Skin: No rashes. Muscular skeletal: No limitation in range of motion. No deformities - Labs CBC & Chem 7: 10/09/20 03:42 10/09/20 03:42 Labs: Abnormal Lab Results - Last 24 Hours (Table) 10/08/20 10/08/20 10/09/20 Range/Units 16:54 20:35 03:42 RBC 3.50 L (3.80-5.40) m/uL Hgb 10.3 L (11.4-16.0) gm/dL Hct 31.2 L (34.0-46.0) % Sodium (137-145) mmol/L BUN (7-17) mg/dL Glucose (74-99) mg/dL POC Glucose (mg/dL) 152 H 195 H (75-99) mg/dL 10/09/20 10/09/20 Range/Units 03:42 06:49 RBC (3.80-5.40) m/uL Hgb (11.4-16.0) gm/dL Hct (34.0-46.0) % Sodium 134 L (137-145) mmol/L BUN 20 H (7-17) mg/dL Glucose 116 H (74-99) mg/dL POC Glucose (mg/dL) 122 H (75-99) mg/dL Assessment and Plan Assessment: Impression: Status post CABG 3, off pump. Postoperative day #5 Paroxysmal atrial fibrillation, presently in normal sinus rhythm. Benign essential hypertension Dyslipidemia Obstructive sleep apnea syndrome Moderate COPD FEV1 of 67%. Ex-smoker. Postoperative blood loss anemia expected. Recommendation: Continue aspirin statins and beta blockers and increase beta blockers accordingly. Continue oral amiodarone. Continue incentive spirometry. Continue ambulation. Continue pain control. Continue GI and DVT prophylaxis. Agree with discharge planning possibly today Time with Patient: Less than 30
--- NOTE | 2020-10-09 15:39 | P.PN ---
Subjective Progress Note Date: 10/09/20 (07) Principal diagnosis: Post open heart surgery with vessel repair Evaluated a 65-year-old male admitted to the hospital with coronary artery disease, which underwent open-heart surgery with multivessel repair. Patient resting comfortably in chair. Patient ambulating without exertional dyspnea, chest pain palpitations. Patient denies any complaints. Reviewed patie nts diagnostic labs and vital signs stable Objective - Vital Signs Vital signs: Vital Signs Temp 98.3 F 10/09/20 08:00 Pulse 75 10/09/20 12:00 Resp 19 10/09/20 12:00 BP 110/71 10/09/20 12:00 Pulse Ox 97 10/09/20 12:00 Intake & Output 10/08/20 10/09/20 10/09/20 18:59 06:59 18:59 Intake Total 600 Output Total 1400 550 Balance -1400 50 Weight 88.3 kg Intake: Oral 600 Output: Urine 1400 550 Other: Voiding Method Bedside Commode Bedside Commode Bedside Commode # Voids 1 # Bowel Movements 2 ABP, PAP, CO, CI - Last Documented Arterial Blood Pressure 131/60 - Constitutional General appearance: Present: cooperative - EENT Eyes: Present: EOMI, PERRLA ENT: Present: normal oropharynx Ears: bilateral: normal - Neck Neck: Present: normal ROM Carotids: bilateral: upstroke normal Thyroid: bilateral: normal size - Respiratory Respiratory: bilateral: CTA ( anterior and posterior) - Cardiovascular Details: Normal sinus rhythm Heart rate: 92 Rhythm: regular Heart sounds: normal: S1, S2 - Peripheral pulses dorsalis pedis Peripheral Pulses: bilateral: Normal radial pulse Peripheral Pulses: bilateral: Normal - Gastrointestinal General gastrointestinal: Present: normal bowel sounds - Integumentary Integumentary: Present: normal turgor - Neurologic Neurologic: Present: CNII-XII intact - Musculoskeletal Musculoskeletal: Present: gait normal - Psychiatric Psychiatric: Present: A&O x's 3, appropriate affect, intact judgment & insight - Allied health notes Allied health notes reviewed: nursing - Labs CBC & Chem 7: 10/09/20 03:42 10/09/20 03:42 Labs: Abnormal Lab Results - Last 24 Hours (Table) 10/08/20 10/08/20 10/09/20 Range/Units 16:54 20:35 03:42 RBC 3.50 L (3.80-5.40) m/uL Hgb 10.3 L (11.4-16.0) gm/dL Hct 31.2 L (34.0-46.0) % Sodium (137-145) mmol/L BUN (7-17) mg/dL Glucose (74-99) mg/dL POC Glucose (mg/dL) 152 H 195 H (75-99) mg/dL 10/09/20 10/09/20 Range/Units 03:42 06:49 RBC (3.80-5.40) m/uL Hgb (11.4-16.0) gm/dL Hct (34.0-46.0) % Sodium 134 L (137-145) mmol/L BUN 20 H (7-17) mg/dL Glucose 116 H (74-99) mg/dL POC Glucose (mg/dL) 122 H (75-99) mg/dL Assessment and Plan Assessment: Coronary artery disease coronary artery bypassing grafting atrial fibrillation paroxysmal hypertension hyperlipidemia history of degenerative joint disease obstructive sleep apnea history of nicotine dependence Plan: Continue home medications, continue symptomatic treatment, continue with incentives parameter, and anti-district makes per cardiology. Okay from discharge from medical standpoint Time with Patient: Greater than 30
[2020-10-16] MEDS ORDERED: AMIODARONE 200 MG TAB PO SCH (09:00)
[2020-10-23] MEDS ORDERED: AMIODARONE 200 MG TAB PO SCH (09:00)
== END 2020-10-09 14:27 | disposition home health service (06) | DRG 236 ==
LOC: 2ORMAIN 05:38 → 2SICU 13:43
PROVIDERS: ADMIT Thoracic Surgery (Cardiothoracic Vascular Surgery); ATTEND Thoracic Surgery (Cardiothoracic Vascular Surgery)
PROC: 02L70CK Occlusion of Left Atrial Appendage with Extraluminal Device, Open Approach (ICD-10-PCS; principal; 2020-10-04 08:00)
PROC: 4A133B1 Monitoring of Arterial Pressure, Peripheral, Percutaneous Approach (ICD-10-PCS; principal; 2020-10-04 08:00)
PROC: B24BZZ4 Ultrasonography of Heart with Aorta, Transesophageal (ICD-10-PCS; principal; 2020-10-04 08:00)
PROC: 02110Z9 Bypass Coronary Artery, Two Arteries from Left Internal Mammary, Open Approach (ICD-10-PCS; principal; 2020-10-04 08:00)
PROC: 025T0ZZ Destruction of Left Pulmonary Vein, Open Approach (ICD-10-PCS; principal; 2020-10-04 08:00)
PROC: 4A133J1 Monitoring of Arterial Pulse, Peripheral, Percutaneous Approach (ICD-10-PCS; principal; 2020-10-04 08:00)
PROC: 02100A3 Bypass Coronary Artery, One Artery from Coronary Artery with Autologous Arterial Tissue, Open Approach (ICD-10-PCS; principal; 2020-10-04 08:00)
PROC: 03HY32Z Insertion of Monitoring Device into Upper Artery, Percutaneous Approach (ICD-10-PCS; principal; 2020-10-04 08:00)
PROC: 03BC3ZZ Excision of Left Radial Artery, Percutaneous Approach (ICD-10-PCS; principal; 2020-10-04 08:00)
PROC: 025S0ZZ Destruction of Right Pulmonary Vein, Open Approach (ICD-10-PCS; principal; 2020-10-04 08:00)
DX: I25.10 Atherosclerotic heart disease of native coronary artery without angina pectoris (principal); D62 Acute posthemorrhagic anemia; I48.19 Other persistent atrial fibrillation; J98.11 Atelectasis; E66.9 Obesity, unspecified; E78.5 Hyperlipidemia, unspecified; F17.210 Nicotine dependence, cigarettes, uncomplicated; G47.33 Obstructive sleep apnea (adult) (pediatric); Z99.89 Dependence on other enabling machines and devices; I10 Essential (primary) hypertension; J44.9 Chronic obstructive pulmonary disease, unspecified; Z87.19 Personal history of other diseases of the digestive system; M19.90 Unspecified osteoarthritis, unspecified site; R73.03 Prediabetes; Z68.34 Body mass index [BMI] 34.0-34.9, adult; Z79.01 Long term (current) use of anticoagulants; Z79.02 Long term (current) use of antithrombotics/antiplatelets; Z79.82 Long term (current) use of aspirin; Z79.899 Other long term (current) drug therapy; Z80.9 Family history of malignant neoplasm, unspecified; Z90.49 Acquired absence of other specified parts of digestive tract; R94.5 Abnormal results of liver function studies; Z88.5 Allergy status to narcotic agent; G62.9 Polyneuropathy, unspecified; M54.31 Sciatica, right side; Z82.49 Family history of ischemic heart disease and other diseases of the circulatory system
CPT/HCPCS: 36415; 71045; 71046; 80048; 80053; 80061; 80074; 81001; 82330; 82805; 83036; 83735; 84439; 84443; 85025; 85027; 85520; 85610; 85730; 86850; 86891; 86900; 86901; 86920; 87070; 87086; 93005; 93922; 93923; 93930; 93970; 94002; 94640

== ENCOUNTER 2020-11-14 13:06 | Emergency (ER) | payer BC ==
--- NOTE | 2020-11-14 14:04 | ED ---
General Adult HPI - General Stated complaint: BAM Time Seen by Provider: 11/14/20 14:00 Source: patient, RN notes reviewed Mode of arrival: ambulatory Limitations: no limitations - History of Present Illness Initial comments: 65-year-old female presents emergency Department chief complaint of covid. Patient states she started symptoms on Thursday progressively worsened. Patient states that her is positive. Patient states that she had open heart surgery by Dr. Rosales 10/04/2020. She's had fever cough congestion and some GI symptoms. - Related Data Home Medications Medication Instructions Recorded Confirmed Gabapentin [Neurontin] 300 mg PO TID 07/07/16 10/04/20 Apixaban [Eliquis] 5 mg PO BID 10/28/18 10/04/20 Citalopram Hydrobromide [CeleXA] 20 mg PO DAILY 10/28/18 10/04/20 Omeprazole 20 mg PO DAILY 10/28/18 10/04/20 Amitriptyline HCl [Elavil] 25 mg PO HS 09/27/20 10/04/20 Aspirin 325 mg PO DAILY 09/27/20 10/04/20 Atorvastatin [Lipitor] 40 mg PO DAILY 09/27/20 10/04/20 Previous Rx's Medication Instructions Recorded Acetaminophen Tab [Tylenol] 1,000 mg PO Q6HR PRN tab 10/09/20 Amiodarone [Cordarone] 200 mg PO BID #14 tab 10/09/20 Amiodarone [Cordarone] 200 mg PO DAILY #7 tab 10/09/20 Amiodarone [Cordarone] 400 mg PO BID #28 tab 10/09/20 Metoprolol Tartrate [Lopressor] 50 mg PO BID #60 tab 10/09/20 Sennosides-Docusate Sodium 2 each PO HS #14 tab 10/09/20 [Senokot-S] Allergies Allergy/AdvReac Type Severity Reaction Status Date / Time morphine AdvReac Hallucinati Verified 11/14/20 14:07 ons Review of Systems ROS Statement: Those systems with pertinent positive or pertinent negative responses have been documented in the HPI. ROS Other: All systems not noted in ROS Statement are negative. Past Medical History Past Medical History: Atrial Fibrillation, Hyperlipidemia, Hypertension, Osteoarthritis (OA), Sleep Apnea/CPAP/BIPAP Additional Past Medical History / Comment(s): HX of Pancreatitis, arthritis History of Any Multi-Drug Resistant Organisms: None Reported Past Surgical History: Cholecystectomy, Tonsillectomy, Tubal Ligation Additional Past Surgical History / Comment(s): Dev. Septum Past Anesthesia/Blood Transfusion Reactions: Motion Sickness Additional Past Anesthesia/Blood Transfusion Reaction / Comment(s): was told she was diff. intubation with last surgery( dev. septum) Past Psychological History: No Psychological Hx Reported Additional Past Alcohol Use History / Comment(s): has smoked for last 16yrs 1/2 pkg a day - Past Family History Father Family Medical History: Cancer General Exam General appearance: alert, in no apparent distress Head exam: Present: atraumatic, normocephalic, normal inspection Eye exam: Present: normal appearance, PERRL, EOMI. Absent: scleral icterus, conjunctival injection, periorbital swelling ENT exam: Present: normal exam, mucous membranes moist Neck exam: Present: normal inspection. Absent: tenderness, meningismus, lymphadenopathy Respiratory exam: Present: normal lung sounds bilaterally. Absent: respiratory distress, wheezes, rales, rhonchi, stridor Cardiovascular Exam: Present: regular rate, normal rhythm, normal heart sounds. Absent: systolic murmur, diastolic murmur, rubs, gallop, clicks Course Vital Signs 11/14/20 14:02 Temperature 97.7 F Pulse Rate 71 Respiratory 22 Rate Blood Pressure 119/80 O2 Sat by Pulse 96 Oximetry Medical Decision Making - Medical Decision Making Patient has positive for COVID-19. Chest x-rays unremarkable. Patient will receive monoclonal antibodies. - Lab Data Lab Results 11/14/20 Range/Units 14:07 Coronavirus (PCR) Detected A (Not Detectd) Disposition Clinical Impression: COVID-19 Disposition: HOME SELF-CARE Condition: Stable Instructions (If sedation given, give patient instructions): Coronavirus Disease 2019 (COVID-19) Additional Instructions: Please return to the Emergency Department if symptoms worsen or any other concerns. Is patient prescribed a controlled substance at d/c from ED?: No Referrals: Salvador Vo MD [Primary Care Provider] - 1-2 days Time of Disposition: 15:19
[2020-11-14 14:07] VITALS: TEMP 97.7
--- NOTE | 2020-11-14 14:35 | XR ---
EXAMINATION TYPE: XR chest 2V DATE OF EXAM: 11/14/2020 COMPARISON: Prior chest x-ray 10/09/2020 HISTORY: Fever and cough TECHNIQUE: Frontal and lateral views of the chest are obtained. FINDINGS: There is no focal air space opacity, pleural effusion, or pneumothorax seen. The cardiac silhouette size is within normal limits. Patient is post median sternotomy and left atrial appendage clip placement. Stable elevation of right hemidiaphragm. The osseous structures are intact. IMPRESSION: No acute cardiopulmonary process.
[2020-11-14] MEDS ORDERED: SODIUM CHLORIDE 0.9% 50 ML IVPB ONE (15:45)
[2020-11-14] MEDS ORDERED: BAMLANIVIMAB (EUA) 700 MG, ETESEVIMAB (EUA) 1,400 MG in SODIUM CHLORIDE 0.9% 50 ML IVPB ONE (15:45)
[2020-11-14 16:41] VITALS: RESP 18
[2020-11-14 18:02] VITALS: BP 147/91; PULSE 78
== END 2020-11-14 17:40 | disposition home or self-care (01) ==
LOC: EC 13:06
DX: U07.1 COVID-19 (principal); I48.91 Unspecified atrial fibrillation; E78.5 Hyperlipidemia, unspecified; I10 Essential (primary) hypertension; M19.90 Unspecified osteoarthritis, unspecified site; G47.33 Obstructive sleep apnea (adult) (pediatric)
CPT/HCPCS: 87635; 71046; 99284; 96365; 96361; Q0245

== ENCOUNTER → 2021-07-19 | Outpatient (CLI) | payer BC ==
--- NOTE | 2021-07-19 07:39 | US ---
EXAMINATION TYPE: US liver DATE OF EXAM: 07/19/2021 COMPARISON: NONE CLINICAL HISTORY: K76.89 Other specified diseases of liver. elevated liver enzymes. Cholecystectomy EXAM MEASUREMENTS: Liver Length: 13.2 cm Gallbladder Wall: Surgically absent CBD: 0.3 cm Right Kidney: 10.5 x 5.0 x 4.0 cm Technical limitations due to large amount of overlying bowel content Pancreas: slightly heterogenous Liver: limited evaluation, visualized portions appear wnl Gallbladder: Surgically absent Evidence for sonographic Landry's sign: no CBD: appears wnl Right Kidney: possible cystic area = 1.1 x 1.0 x 1.3cm Visualized pancreas appears within normal limits. Visualized liver shows no worrisome mass or ductal dilatation. No right-sided hydronephrosis. Technologist marked a 1.0 cm round anechoic lesion too sma ll to further characterize favor simple cyst. Gallbladder surgically absent. Common bile duct measure s within normal limits. IMPRESSION: No worrisome focal intrahepatic mass or intrahepatic ductal dilatation is seen.
== END | disposition home or self-care (01) ==
LOC: RADUSWWP 06:57
PROVIDERS: ATTEND Family Medicine
DX: K76.89 Other specified diseases of liver (principal)
CPT/HCPCS: 76705

== ENCOUNTER 2021-08-17 12:55 | Emergency (ER) | payer BC ==
[2021-08-17 13:02] VITALS: BP 208/83; PULSE 64; RESP 18; TEMP 98.1
--- NOTE | 2021-08-17 13:36 | ED ---
General Adult HPI - General Chief complaint: ENT Stated complaint: Nose bleed Time Seen by Provider: 08/17/21 13:06 Source: patient, RN notes reviewed Mode of arrival: ambulatory Limitations: no limitations - History of Present Illness Initial comments: 65-year-old female presents to the emergency department accompanied by her for evaluation of nosebleed. Patient states bleeding began around 10:30 this morning and was unable to get control with manual pressure. States bleeding began from the right naris, then shortly thereafter she developed bleeding from the left naris as well. Patient denies any trauma or injury. No recent illnesses or medicine changes. She does take an aspirin daily. Bleeding controlled upon arrival with nasal clamp. - Related Data Home Medications Medication Instructions Recorded Confirmed Gabapentin [Neurontin] 300 mg PO TID 07/07/16 10/04/20 Apixaban [Eliquis] 5 mg PO BID 10/28/18 10/04/20 Citalopram Hydrobromide [CeleXA] 20 mg PO DAILY 10/28/18 10/04/20 Omeprazole 20 mg PO DAILY 10/28/18 10/04/20 Amitriptyline HCl [Elavil] 25 mg PO HS 09/27/20 10/04/20 Aspirin 325 mg PO DAILY 09/27/20 10/04/20 Atorvastatin [Lipitor] 40 mg PO DAILY 09/27/20 10/04/20 Previous Rx's Medication Instructions Recorded Acetaminophen Tab [Tylenol] 1,000 mg PO Q6HR PRN tab 10/09/20 Amiodarone [Cordarone] 200 mg PO BID #14 tab 10/09/20 Amiodarone [Cordarone] 200 mg PO DAILY #7 tab 10/09/20 Amiodarone [Cordarone] 400 mg PO BID #28 tab 10/09/20 Metoprolol Tartrate [Lopressor] 50 mg PO BID #60 tab 10/09/20 Sennosides-Docusate Sodium 2 each PO HS #14 tab 10/09/20 [Senokot-S] Allergies Allergy/AdvReac Type Severity Reaction Status Date / Time morphine AdvReac Hallucinati Verified 08/17/21 13:02 ons Review of Systems ROS Statement: Those systems with pertinent positive or pertinent negative responses have been documented in the HPI. ROS Other: All systems not noted in ROS Statement are negative. Past Medical History Past Medical History: Atrial Fibrillation, Hyperlipidemia, Hypertension, Osteoarthritis (OA), Sleep Apnea/CPAP/BIPAP Additional Past Medical History / Comment(s): HX of Pancreatitis, arthritis History of Any Multi-Drug Resistant Organisms: None Reported Past Surgical History: Cholecystectomy, Tonsillectomy, Tubal Ligation Additional Past Surgical History / Comment(s): Dev. Septum Past Anesthesia/Blood Transfusion Reactions: Motion Sickness Additional Past Anesthesia/Blood Transfusion Reaction / Comment(s): was told she was diff. intubation with last surgery( dev. septum) Past Psychological History: No Psychological Hx Reported Smoking Status: Current every day smoker Past Alcohol Use History: None Reported Past Drug Use History: None Reported - Past Family History Father Family Medical History: Cancer General Exam Limitations: no limitations (Developed, well nourished female in no acute distress. Initial temperature 98.1, pulse 64, respirations 18, blood pressure 208/83, pulse ox 100% on room air) General appearance: alert, in no apparent distress Head exam: Present: atraumatic, normocephalic, normal inspection Eye exam: Present: normal appearance, PERRL, EOMI. Absent: scleral icterus, conjunctival injection, periorbital swelling, periorbital tenderness ENT exam: Present: mucous membranes dry, other (evidence of dried blood in right naris and nasal passage; dried blood around left naris ) Expanded Ear exam: Present: normal external inspection Mouth exam: Present: other (dried blood coating hard palate and tongue; no active bleeding) Respiratory exam: Present: normal lung sounds bilaterally. Absent: respiratory distress, wheezes, rales, rhonchi, stridor Cardiovascular Exam: Present: regular rate, normal rhythm GI/Abdominal exam: Present: soft, normal bowel sounds. Absent: distended, tenderness, guarding, rebound, rigid Neurological exam: Present: alert, oriented X3, CN II-XII intact Psychiatric exam: Present: normal affect, normal mood Skin exam: Present: warm, dry, intact, normal color. Absent: rash Course Vital Signs 08/17/21 12:56 Temperature 98.1 F Pulse Rate 64 Respiratory 18 Rate Blood Pressure 208/83 O2 Sat by Pulse 100 Oximetry - Reevaluation(s) Reevaluation #1: 08/17/21 14:31 Patient reassessed. No additional bleeding. Clamp remains in place. Provided with ice water to rinse mouth for further evaluation. Laboratory studies pending. 08/17/21 15:30 Mouth rinsed- no evidence of continued bleeding. Nasal clamp removed. 08/17/21 16:00 Right naris re-bled therefore clamp reapplied. 08/17/21 16:45 Clamped removed; no bleeding or clots. Patient ambulated around department with no additional incidences of bleeding. Monitored for an additional 15 minutes with no recurrence. Medical Decision Making - Medical Decision Making 65-year-old female with a past medical history of CAD and CABG presents to the emergency department for evaluation of epistaxis. Upon exam, patient is noted to have significant amount of dried blood in bilateral nares and in her mouth. With removal of the clamp, patient did have episodes of recurrent bleeding from the right naris only. Patient was able to swish water in her mouth to remove dried blood for better evaluation. No petechia or sores on palate. Oropharynx does appear dry. In preparing to administer TXA irrigation, bleeding ceased. She was ambulated around the department, gently blew her nose, and waited for another half hour and did not have any further recurrence of staxis. Therefore patient will be discharged home with Afrin and instructed on its application if episode of rebleeding is to occur. She is instructed to follow up with her PCP or ENT. Return parameters were discussed in detail. Patient verbalizes understanding and agrees with this plan. This patient's care was discussed with my attending . - Lab Data Result diagrams: 08/17/21 14:33 08/17/21 14:33 Lab Results 08/17/21 08/17/21 08/17/21 Range/Units 13:58 14:33 14:33 WBC 8.7 (3.8-10.6) k/uL RBC 4.77 (3.80-5.40) m/uL Hgb 14.7 (11.4-16.0) gm/dL Hct 44.8 (34.0-46.0) % MCV 93.8 (80.0-100.0) fL MCH 30.8 (25.0-35.0) pg MCHC 32.9 (31.0-37.0) g/dL RDW 13.1 (11.5-15.5) % Plt Count 165 (150-450) k/uL MPV 10.5 Neutrophils % 63 % Lymphocytes % 25 % Monocytes % 7 % Eosinophils % 1 % Basophils % 1 % Neutrophils # 5.4 (1.3-7.7) k/uL Lymphocytes # 2.2 (1.0-4.8) k/uL Monocytes # 0.6 (0-1.0) k/uL Eosinophils # 0.1 (0-0.7) k/uL Basophils # 0.1 (0-0.2) k/uL PT 11.0 (9.0-12.0) sec INR 1.0 (<1.2) APTT 26.2 (22.0-30.0) sec Sodium (137-145) mmol/L Potassium (3.5-5.1) mmol/L Chloride (98-107) mmol/L Carbon Dioxide (22-30) mmol/L Anion Gap mmol/L BUN (7-17) mg/dL Creatinine (0.52-1.04) mg/dL Est GFR (CKD-EPI)AfAm (>60 ml/min/1.73 sqM) Est GFR (CKD-EPI)NonAf (>60 ml/min/1.73 sqM) Glucose (74-99) mg/dL Calcium (8.4-10.2) mg/dL Total Bilirubin (0.2-1.3) mg/dL AST (14-36) U/L ALT (4-34) U/L Alkaline Phosphatase (38-126) U/L Total Protein (6.3-8.2) g/dL Albumin (3.5-5.0) g/dL Urine Color Light Yellow Urine Appearance Clear (Clear) Urine pH 6.0 (5.0-8.0) Ur Specific [place] 1.005 (1.001-1.035) Urine Protein Negative (Negative) Urine Glucose (UA) Negative (Negative) Urine Ketones Negative (Negative) Urine Blood Negative (Negative) Urine Nitrite Negative (Negative) Urine Bilirubin Negative (Negative) Urine Urobilinogen <2.0 (<2.0) mg/dL Ur Leukocyte Esterase Moderate H (Negative) Urine RBC <1 (0-5) /hpf Urine WBC 9 H (0-5) /hpf Ur Squamous Epith Cells <1 (0-4) /hpf Urine Bacteria Rare H (None) /hpf 08/17/21 Range/Units 14:33 WBC (3.8-10.6) k/uL RBC (3.80-5.40) m/uL Hgb (11.4-16.0) gm/dL Hct (34.0-46.0) % MCV (80.0-100.0) fL MCH (25.0-35.0) pg MCHC (31.0-37.0) g/dL RDW (11.5-15.5) % Plt Count (150-450) k/uL MPV Neutrophils % % Lymphocytes % % Monocytes % % Eosinophils % % Basophils % % Neutrophils # (1.3-7.7) k/uL Lymphocytes # (1.0-4.8) k/uL Monocytes # (0-1.0) k/uL Eosinophils # (0-0.7) k/uL Basophils # (0-0.2) k/uL PT (9.0-12.0) sec INR (<1.2) APTT (22.0-30.0) sec Sodium 137 (137-145) mmol/L Potassium 4.8 (3.5-5.1) mmol/L Chloride 105 (98-107) mmol/L Carbon Dioxide 25 (22-30) mmol/L Anion Gap 7 mmol/L BUN 16 (7-17) mg/dL Creatinine 0.88 (0.52-1.04) mg/dL Est GFR (CKD-EPI)AfAm 81 (>60 ml/min/1.73 sqM) Est GFR (CKD-EPI)NonAf 70 (>60 ml/min/1.73 sqM) Glucose 89 (74-99) mg/dL Calcium 9.4 (8.4-10.2) mg/dL Total Bilirubin 1.2 (0.2-1.3) mg/dL AST 70 H (14-36) U/L ALT 51 H (4-34) U/L Alkaline Phosphatase 94 (38-126) U/L Total Protein 7.4 (6.3-8.2) g/dL Albumin 4.2 (3.5-5.0) g/dL Urine Color Urine Appearance (Clear) Urine pH (5.0-8.0) Ur Specific [place] (1.001-1.035) Urine Protein (Negative) Urine Glucose (UA) (Negative) Urine Ketones (Negative) Urine Blood (Negative) Urine Nitrite (Negative) Urine Bilirubin (Negative) Urine Urobilinogen (<2.0) mg/dL Ur Leukocyte Esterase (Negative) Urine RBC (0-5) /hpf Urine WBC (0-5) /hpf Ur Squamous Epith Cells (0-4) /hpf Urine Bacteria (None) /hpf Disposition Clinical Impression: Epistaxis Disposition: HOME SELF-CARE Condition: Stable Instructions (If sedation given, give patient instructions): Nosebleed (ED) Additional Instructions: Do your best to increase humidity levels in your home. May gently apply aquaphor to nasal lining 2-3 times per day. Do not aggressively blow your nose; just wipe gently. If bleeding recurs, blow your nose then spray Affrin in affected nostril and apply clamp for 20 minutes, may repeat this process once. If bleeding continues, you need to return to the Emergency Department. Follow up with you PCP for a recheck on Thursday. You may need to see an ENT specialists in nosebleeds become recurrent. Current to the emergency department with any new, worsening, or concerning symptoms. Is patient prescribed a controlled substance at d/c from ED?: No Referrals: Salvador Vo MD [Primary Care Provider] - 1-2 days Time of Disposition: 17:40
[2021-08-17 14:07] LABS: Appearance,Urine Clear (Clear); Bacteria,Urine Rare /hpf; Bilirubin,Urine Negative (Negative); Blood,Urine Negative (Negative); Color,Urine Light Yellow; Glucose,Urine (UA) Negative (Negative); Ketones,Urine Negative (Negative); Leukocyte Esterase,Urine Moderate (Negative); Nitrite,Urine Negative (Negative); Protein,Urine Negative (Negative); RBC,Urine <1 /hpf (0-5); Specific Gravity,Urine 1.005 (1.001-1.035); Squamous Epithelial Cell,Urine <1 /hpf (0-4); Urobilinogen,Urine <2.0 mg/dL (<2.0); WBC,Urine 9 /hpf (0-5)
[2021-08-17 15:01] LABS: Albumin 4.2 g/dL (3.5-5.0); Calcium 9.4 mg/dL (8.4-10.2); Total Bilirubin 1.2 mg/dL (0.2-1.3); Total Protein 7.4 g/dL (6.3-8.2)
[2021-08-17 15:06] LABS: Basophils # (A) 0.1 k/uL (0-0.2); Basophils % (A) 1 %; Eosinophils # (A) 0.1 k/uL (0-0.7); Eosinophils % (A) 1 %; HCT 44.8 % (34.0-46.0); HGB 14.7 gm/dL (11.4-16.0); Lymphocytes # (A) 2.2 k/uL (1.0-4.8); Lymphocytes % (A) 25 %; MCH 30.8 pg (25.0-35.0); MCHC 32.9 g/dL (31.0-37.0); MCV 93.8 fL (80.0-100.0); Mean Platelet Volume 10.5; Monocytes # (A) 0.6 k/uL (0-1.0); Monocytes % (A) 7 %; Neutrophils # (A) 5.4 k/uL (1.3-7.7); Neutrophils % (A) 63 %; Platelet Count 165 k/uL (150-450); RBC 4.77 m/uL (3.80-5.40); RDW 13.1 % (11.5-15.5); WBC 8.7 k/uL (3.8-10.6)
[2021-08-17 15:07] LABS: Partial Thromboplastin Time 26.2 sec (22.0-30.0); Potassium 4.8 mmol/L (3.5-5.1)
[2021-08-17] MEDS ORDERED: TRANEXAMIC ACID 1,000 MG/10 ML VIAL IRRIGATION ONE (16:25)
[2021-08-17] MEDS ORDERED: OXYMETAZOLINE 0.05% NASL SPRAY 1 SPRAY BOTTLE NASAL STA (17:40)
== END 2021-08-17 18:42 | disposition home or self-care (01) ==
LOC: EC 12:55
DX: R04.0 Epistaxis (principal); F17.200 Nicotine dependence, unspecified, uncomplicated; I10 Essential (primary) hypertension; E78.5 Hyperlipidemia, unspecified; I48.91 Unspecified atrial fibrillation; M19.90 Unspecified osteoarthritis, unspecified site; Z88.5 Allergy status to narcotic agent; Z79.899 Other long term (current) drug therapy; Z79.01 Long term (current) use of anticoagulants; Z79.82 Long term (current) use of aspirin
CPT/HCPCS: 36415; 80053; 81001; 85025; 85610; 85730; 99283

== ENCOUNTER 2021-08-20 23:46 | Emergency (ER) | payer BC ==
[2021-08-20 23:50] VITALS: RESP 18; TEMP 97.8
[2021-08-21] MEDS ORDERED: LIDOCAINE/EPINEPHR/TETRACAINE 5 ML BOTTLE TOPICAL STA (00:12)
--- NOTE | 2021-08-21 01:02 | ED ---
General Adult HPI - General Chief complaint: ENT Stated complaint: Nose Bleed Time Seen by Provider: 08/21/21 00:11 Source: patient, RN notes reviewed Mode of arrival: ambulatory Limitations: no limitations - History of Present Illness Initial comments: 65-year-old female presents to the emergency room for a chief complaint of nosebleed. Patient states she had a nosebleed started about an hour prior to arrival. States she tried to do the clamp for 20 minutes but it did not seem to stop the bleeding. States it is mostly coming from the right nare. Patient has an appointment with ENT tomorrow. She also tried Afrin before coming.Patient has no other complaints at this time including shortness of breath, chest pain, abdominal pain, nausea or vomiting, headache, or visual changes. - Related Data Home Medications Medication Instructions Recorded Confirmed Gabapentin [Neurontin] 300 mg PO TID 07/07/16 10/04/20 Apixaban [Eliquis] 5 mg PO BID 10/28/18 10/04/20 Citalopram Hydrobromide [CeleXA] 20 mg PO DAILY 10/28/18 10/04/20 Omeprazole 20 mg PO DAILY 10/28/18 10/04/20 Amitriptyline HCl [Elavil] 25 mg PO HS 09/27/20 10/04/20 Aspirin 325 mg PO DAILY 09/27/20 10/04/20 Atorvastatin [Lipitor] 40 mg PO DAILY 09/27/20 10/04/20 Previous Rx's Medication Instructions Recorded Acetaminophen Tab [Tylenol] 1,000 mg PO Q6HR PRN tab 10/09/20 Amiodarone [Cordarone] 200 mg PO BID #14 tab 10/09/20 Amiodarone [Cordarone] 200 mg PO DAILY #7 tab 10/09/20 Amiodarone [Cordarone] 400 mg PO BID #28 tab 10/09/20 Metoprolol Tartrate [Lopressor] 50 mg PO BID #60 tab 10/09/20 Sennosides-Docusate Sodium 2 each PO HS #14 tab 10/09/20 [Senokot-S] Allergies Allergy/AdvReac Type Severity Reaction Status Date / Time morphine AdvReac Hallucinati Verified 08/20/21 23:50 ons Review of Systems ROS Statement: Those systems with pertinent positive or pertinent negative responses have been documented in the HPI. ROS Other: All systems not noted in ROS Statement are negative. Past Medical History Past Medical History: Atrial Fibrillation, Hyperlipidemia, Hypertension, Osteoarthritis (OA), Sleep Apnea/CPAP/BIPAP Additional Past Medical History / Comment(s): HX of Pancreatitis, arthritis History of Any Multi-Drug Resistant Organisms: None Reported Past Surgical History: Cholecystectomy, Tonsillectomy, Tubal Ligation Additional Past Surgical History / Comment(s): Dev. Septum Past Anesthesia/Blood Transfusion Reactions: Motion Sickness Additional Past Anesthesia/Blood Transfusion Reaction / Comment(s): was told she was diff. intubation with last surgery( dev. septum) Past Psychological History: No Psychological Hx Reported Smoking Status: Current every day smoker Past Alcohol Use History: None Reported Past Drug Use History: None Reported - Past Family History Father Family Medical History: Cancer General Exam Limitations: no limitations General appearance: alert, in no apparent distress Head exam: Present: atraumatic Eye exam: Present: normal appearance, PERRL, EOMI. Absent: scleral icterus, conjunctival injection ENT exam: Present: normal exam, mucous membranes moist, other (Nasal clamp in place) Neck exam: Present: normal inspection, full ROM. Absent: tenderness Respiratory exam: Present: normal lung sounds bilaterally. Absent: respiratory distress, wheezes Cardiovascular Exam: Present: regular rate, normal rhythm, normal heart sounds Course Vital Signs 08/20/21 08/21/21 23:48 00:21 Temperature 97.8 F Pulse Rate 64 63 Respiratory 18 18 Rate Blood Pressure 164/79 151/99 O2 Sat by Pulse 98 97 Oximetry Medical Decision Making - Medical Decision Making Vitals are stable. Let solution and TXA were used with nasal clamp. Bleeding did cease. Patient was able to ambulate without rebleeding. Patient has an appointment with ENT tomorrow. At this time patient can be discharged home to follow up and will return here for any worsening symptoms. Disposition Clinical Impression: Epistaxis Disposition: HOME SELF-CARE Condition: Good Instructions (If sedation given, give patient instructions): Nosebleed (ED) Additional Instructions: Please follow-up by your ENT clinic tomorrow. Return to the emergency room for any worsening symptoms. Is patient prescribed a controlled substance at d/c from ED?: No Referrals: Salvador Vo MD [Primary Care Provider] - 1-2 days Time of Disposition: 02:27
[2021-08-21] MEDS ORDERED: TRANEXAMIC ACID 1,000 MG/10 ML VIAL IRRIGATION STA (01:25)
[2021-08-21 03:25] VITALS: BP 141/87; PULSE 71
== END 2021-08-21 03:11 | disposition home or self-care (01) ==
LOC: EC 23:46
DX: R04.0 Epistaxis (principal); F17.200 Nicotine dependence, unspecified, uncomplicated; I10 Essential (primary) hypertension; E78.5 Hyperlipidemia, unspecified; I48.91 Unspecified atrial fibrillation; M19.90 Unspecified osteoarthritis, unspecified site; Z88.5 Allergy status to narcotic agent; Z79.899 Other long term (current) drug therapy; Z79.01 Long term (current) use of anticoagulants; Z79.82 Long term (current) use of aspirin
CPT/HCPCS: 99283

== ENCOUNTER → 2021-08-30 | Outpatient (CLI) | payer BC ==
--- NOTE | 2021-09-02 10:06 | MM ---
Reason for exam: screening (asymptomatic). Last mammogram was performed 1 year and 4 months ago. History: Patient is postmenopausal. Took estrogen for 3 months. Took progesterone for 3 months. Physical Findings: A clinical breast exam by your physician is recommended on an annual basis and results should be correlated with mammographic findings. MG Screening Mammo w CAD Bilateral CC and MLO view(s) were taken. Prior study comparison: May 09, 2020, bilateral MG 3d screening mammo w/cad. July 28, 2018, bilateral MG screening mammo w CAD. The breast tissue is heterogeneously dense. This may lower the sensitivity of mammography. There are benign appearing round calcifications bilaterally. There is no discrete abnormality. ASSESSMENT: Benign, BI-RAD 2 RECOMMENDATION: Routine screening mammogram of both breasts in 1 year.
== END ==
LOC: RADMAMWWP 09:53
PROVIDERS: ATTEND Obstetrics & Gynecology
DX: Z12.31 Encounter for screening mammogram for malignant neoplasm of breast (principal)
CPT/HCPCS: 77067

== ENCOUNTER → 2021-09-13 | Outpatient (CLI) | payer MEDICARE, BC ==
--- NOTE | 2021-09-13 09:59 | CT ---
EXAMINATION TYPE: CT sinus wo con DATE OF EXAM: 09/13/2021 COMPARISON: 10/26/2018 HISTORY: Chronic sinusitis CT DLP: [address] of the paranasal sinuses was performed in the axial and coronal planes. Bone and soft tissue settings are submitted. The paranasal sinuses demonstrate normal aeration and development. There is complete opacification of the left maxillary sinus with obstruction of the left ostiomeatal unit. The right maxillary sinus, ethmoid air cells and sphenoid sinus are well aerated. The nasal septum is midline. No bony destructive changes are seen within the field of view. IMPRESSION: Complete opacification left maxillary sinus.
== END | disposition home or self-care (01) ==
LOC: RADCTMAIN 09:29
PROVIDERS: ATTEND Otolaryngology
DX: J32.9 Chronic sinusitis, unspecified (principal)
CPT/HCPCS: 70486

== ENCOUNTER → 2022-01-15 | Outpatient (CLI) | payer MEDICARE, BC ==
--- NOTE | 2022-01-15 12:29 | P.PN ---
Subjective DATE: 6:15 FOLLOW UP VISIT. Patient with obstructive sleep apnea hypopnea syndrome return to sleep center for follow-up visit. Patient is using PAP equipment every night for the whole night, getting PAP supplies in time. The patient does not have significant problems with the mask, PAP unit and humidification. [place] sleepiness scale is 14. I checked information from PAP unit. PAP unit pressure 5-15 cm H2O. Usage is 98 % for more then 4 hours, average 7.2 hours per night. Leak is 5 l/m, which is in acceptable range. Apnea Hypopnea Index is 2.8, which is normal. Recently patient developed episodes of out of dream movements. Episodes happened about 2 times a week MEDICATIONS:1. Omeprazole 2. Citalopram 3. Losartan 4. Atenolol 5. Eliquis During physical exam: GENERAL: A pleasant patient without any distress. VITAL SIGNS: BP 135/79, HR 60, RR 14 , weight 166.2, temperature 97.2, oxygen saturation at room air 97 . HEENT: PERRLA, EOMI.low position of soft palate, Mallapati for . NECK: Supple. No JVD. LUNGS: Clear to percussion and to auscultation. Good air exchange. No wheezing or rhonchi. HEART: S1, S2 regular. ABDOMEN: Soft and nontender.[] EXTREMITIES: No clubbing or cyanosis. AUTOMATIC CAR WASH ATTENDANT: Awake, alert, and oriented x3. No focal deficit. Impressions: 1. Obstructive sleep apnea-hypopnea syndrome. Patient demonstrated great compliance with treatment, benefiting from treatment. 2. Episodes of out of dream movements possibly REM sleep behavioral disorder. 3. Hypertension. 4. History of of atrial fibrillation. 5. Mild obesity. 6. Status post tonsillectomy. 7. Status post tubal ligation. Plan: 1. Continue using PAP equipment every night for the whole night. 2. To change air filter at least 1-2 times per month. 3. PAP unit should stay lower then position of the head. 4. Advised patient to remove all remaining water from humidifier canister daily and make it dry after each usage. Refill canister with fresh distilled water before each usage. 5. Sleep hygiene with regular time in bed for at least 8 hours. 6. Precautions related to driving. No driving if feel any sleepiness. 7. I will maintain prescription for PAP supplies including mask, tube, filters. 8. Follow up visit in 6 months or earlier if patient has any problems. 9. Watching weight. 10. Polysomnogram on the CPAP to confirm diagnosis of REM sleep behavioral disorder. 11. Patient will be started on treatment with clonazepam 0.5 mg at bedtime. Thank you very much for allowing me to participate in the management of your patient. Refugio Mckay MD, PhD, FAASM. Diplomat of [place] [employer], Sleep Medicine Board by [place] [employer] Senior Engineering Associate of [facility] [place]
== END ==
LOC: SLEEP 10:13
PROVIDERS: ATTEND Internal Medicine
DX: G47.33 Obstructive sleep apnea (adult) (pediatric) (principal); I10 Essential (primary) hypertension; E66.9 Obesity, unspecified; Z98.51 Tubal ligation status; I48.91 Unspecified atrial fibrillation; F17.200 Nicotine dependence, unspecified, uncomplicated; Z90.09 Acquired absence of other part of head and neck; Z99.89 Dependence on other enabling machines and devices; Z79.01 Long term (current) use of anticoagulants; Z79.899 Other long term (current) drug therapy; Z88.5 Allergy status to narcotic agent

== ENCOUNTER → 2022-06-30 | Outpatient (CLI) | payer BC, MEDICARE ==
--- NOTE | 2022-06-30 09:20 | US ---
EXAMINATION TYPE: US duplex aorta DATE OF EXAM: 06/30/2022 COMPARISON: NONE CLINICAL HISTORY: Z13.6 SCREENING FOR CARDIOVASCULAR DISEASE. TECHNIQUE: Multiple sonographic images of the abdominal aorta are obtained. FINDINGS: EXAM MEASUREMENTS: Abdominal Aorta: Proximal: 2.2cm Mid: 1.7cm Distal: 1.3cm Bifurcation: Rt: 0.8CM Lt: 0.8CM HELICOPTER OFFICER NOTES: The aorta is successfully visualized to the bifurcation. IMPRESSION: No ultrasound evidence for greater than 3.0 cm AAA.
== END | disposition home or self-care (01) ==
LOC: RADUSWWP 08:47
PROVIDERS: ATTEND Family Medicine
DX: Z13.6 Encounter for screening for cardiovascular disorders (principal)
CPT/HCPCS: 93979

== ENCOUNTER → 2022-09-01 | Outpatient (CLI) | payer MEDICARE, BC ==
--- NOTE | 2022-09-02 08:45 | MM ---
Reason for Exam: Screening (asymptomatic). Last screening mammogram was performed 12 month(s) ago. Patient History: Menarche at age 11. First Full-Term at age 22. Postmenopausal. Patient has history of breast feeding. Estrogen for 3 months until age 58. Progesterone for 3 months until age 58. Risk Values: Susan 5 year model risk: 1.6%. NCI Lifetime model risk: 6.2%. Prior Study Comparison: 07/28/2018 Bilateral Screening Mammogram, [facility]. 05/09/2020 Bilateral Screening Mammogram, [facility]. 08/30/2021 Bilateral Screening Mammogram, [facility]. Tissue Density: The breast tissue is heterogeneously dense. This may lower the sensitivity of mammography. Findings: Analyzed By CAD. More conspicuous linear calcifications in the left breast anterior depth on cc view 2.2 cm from the nipple. No suspicious calcifications, distortions or masses within the right breast. Overall Assessment: Incomplete: need additional imaging evaluation, BI-RAD 0 Management: Diagnostic Mammogram of the left breast. A clinical breast exam by your physician is recommended on an annual basis and results should be correlated with mammographic findings. [facility] will attempt to contact patient to return for supplemental views and ultrasound if indicated. Electronically signed and approved by: Ayan Mistry DO
== END | disposition home or self-care (01) ==
LOC: RADMAMWWP 10:18
PROVIDERS: ATTEND Family Medicine
DX: Z12.31 Encounter for screening mammogram for malignant neoplasm of breast (principal); Z78.0 Asymptomatic menopausal state
CPT/HCPCS: 77063; 77067

== ENCOUNTER → 2022-09-03 | Outpatient (CLI) | payer MEDICARE ==
--- NOTE | 2022-09-03 10:54 | MM ---
Reason for Exam: Clinical finding. Last screening mammogram was performed less than 1 month ago. Patient History: Menarche at age 11. First Full-Term at age 22. Postmenopausal. Patient has history of breast feeding. Estrogen for 3 months until age 58. Progesterone for 3 months until age 58. Risk Values: Susan 5 year model risk: 1.6%. NCI Lifetime model risk: 6.2%. Prior Study Comparison: 05/09/2020 Bilateral Screening Mammogram, [facility]. 08/30/2021 Bilateral Screening Mammogram, [facility]. 09/01/2022 Bilateral MG 3D screening mammo w/cad, [facility]. Tissue Density: Left: The breast tissue is heterogeneously dense. This may lower the sensitivity of mammography. Findings: Analyzed By CAD. A Few scattered calcifications noted. No suspicious calculi seen. Overall Assessment: Benign, BI-RAD 2 Management: Screening Mammogram of both breasts in 1 year. A clinical breast exam by your physician is recommended on an annual basis and results should be correlated with mammographic findings. This exam should not preclude additional follow-up of suspicious palpable abnormalities. Results were given to the patient verbally at the time of exam. Electronically signed and approved by: Heriberto Ramos M.D. Radiologis
== END | disposition home or self-care (01) ==
LOC: RADMAMWWP 10:05
PROVIDERS: ATTEND Family Medicine
DX: R92.8 Other abnormal and inconclusive findings on diagnostic imaging of breast (principal); Z78.0 Asymptomatic menopausal state
CPT/HCPCS: 77065; G0279; 77061

== ENCOUNTER → 2022-10-20 | Outpatient (CLI) | payer MEDICARE | END | disposition home or self-care (01) | LOC: LABWHC1 12:48 | PROVIDERS: ATTEND Family Medicine | DX: E05.90 Thyrotoxicosis, unspecified without thyrotoxic crisis or storm (principal) | CPT/HCPCS: 36415; 84439; 84443; 84481 ==

== ENCOUNTER → 2023-01-07 | Outpatient (CLI) | payer MEDICARE ==
[2023-01-07 20:39] LABS: Blood Urea Nitrogen 15.2 mg/dL (9.0-27.0); Carbon Dioxide 25.2 mmol/L (21.6-31.8); Chloride 109 mmol/L (96-109); Potassium 4.5 mmol/L (3.5-5.5); Sodium 142 mmol/L (135-145)
[2023-01-07 21:21] LABS: HCT 45.8 % (37.2-46.3); HGB 14.2 d/dL (12.0-15.0); MCH 28.7 pg (27.0-32.0); MCV 92.5 FL (80.0-97.0); NRBC Per 100 WBC 0 X 10*3/uL (0.00-0.01); Platelet Count 142 X 10*3/uL (140-440); RBC 4.95 X 10*6/uL (4.10-5.20); RDW 12.6 % (11.5-14.5); WBC 6.58 X 10*3/uL (4.50-10.00)
== END | disposition home or self-care (01) ==
LOC: LABPAT 11:27
PROVIDERS: ATTEND Internal Medicine Clinical Cardiac Electrophysiology
DX: Z01.812 Encounter for preprocedural laboratory examination (principal); I48.0 Paroxysmal atrial fibrillation
CPT/HCPCS: 80051; 82565; 84520; 85027

== ENCOUNTER 2023-01-15 06:18 | Day surgery (SDC) | payer MEDICARE ==
[2023-01-15] MEDS: SODIUM CHLORIDE 0.9% 1,000 ML IV SCH (06:51)
[2023-01-15] MEDS ORDERED: MIDAZOLAM 2 MG/2 ML VIAL ONE (09:01)
[2023-01-15] MEDS ORDERED: PROPOFOL 10 MG/ML 20 ML VIAL IV ONE (09:01)
[2023-01-15] MEDS ORDERED: SUCCINYLCHOLINE CHLORIDE 200 MG/10 ML VIAL IV ONE (09:01)
[2023-01-15] MEDS ORDERED: FUROSEMIDE 10 MG/ML 2 ML VIAL ONE (09:01)
[2023-01-15] MEDS ORDERED: fentaNYL (PF) 50 MCG/ML 2 ML AMP ONE (09:01)
[2023-01-15] MEDS ORDERED: ROCURONIUM 10 MG/ML (5 ML VIAL) IV ONE (09:01)
[2023-01-15] MEDS ORDERED: PHENYLEPHRINE-0.9% NACL SYG 1,000 MCG/10 ML SYRINGE ONE (09:01)
[2023-01-15] MEDS ORDERED: LIDOCAINE 2% INJ 20 MG/ML (2 ML VIAL) ONE (09:01)
[2023-01-15] MEDS ORDERED: HEPARIN SODIUM,PORCINE 10,000 UNIT/ML 1 ML VIAL ONE (09:01)
[2023-01-15] MEDS ORDERED: GLYCOPYRROLATE 0.2 MG/ML 2 ML VIAL ONE (09:01)
[2023-01-15] MEDS ORDERED: NEOSTIGMINE 1 MG/ML 10 ML VIAL ONE (09:01)
[2023-01-15] MEDS ORDERED: ISOPROTERENOL 250 MCG/1.25 ML SYR IV ONE (09:01)
[2023-01-15] MEDS ORDERED: LIDOCAINE 1% INJ 10MG/ML (20 ML MDV) ONE (09:04)
[2023-01-15] MEDS ORDERED: LIDOCAINE 1% INJ 10MG/ML (30 ML VIAL-PF) SQ ONE (09:44)
[2023-01-15] MEDS ORDERED: HEPARIN SOD,PORK IN 0.45% NACL 25,000 UNIT in 0.45% NACL 1 250ML.BAG IV ONE (10:08)
[2023-01-15] MEDS ORDERED: IOPAMIDOL-370 100ML BTL INJ ONE (11:15)
[2023-01-15] MEDS ORDERED: HEPARIN SODIUM (1,000 UNIT/ML) 1,000 UNIT in SODIUM CHLORIDE 0.9% 1,000 ML IRRIGATION ONE (11:30)
[2023-01-15] MEDS ORDERED: SODIUM CHLORIDE 0.9% 1,000 ML IV ONE (13:34)
--- NOTE | 2023-01-15 14:24 | P.HPCAR ---
History of Present Illness This is Dr. Lane dictating an H/P on this patient The patient was interviewed and examined IMPRESSION / ASSESSMENT: Paroxysmal atrial fibrillation status post intraoperative Maze procedure Coronary artery disease status post coronary artery bypass grafting Underlying sick sinus syndrome Left atrial appendage atricure clipping Symptomatic episodes with palpitations shortness of breath, frequent episodes PLAN: Diagnostic EP study and ablation for atrial fibrillation. Pulmonary vein isolation and left atrial roof ablation and ablation of any residual atrial tachycardia is HPI Patient continues to have episodes of palpitations shortness of breath despite the intraoperative Maze procedure during her coronary artery bypass grafting She also has ongoing Sick Sinus Syndrome ROS: No fever chills or rigors, no cough, phlegm or expectoration, no nausea, vomiting or diarrhea, no hematuria, dysuria, no musculoskeletal complaints, no strokes or seizures, no skin lesions. EXAMINATION: Blood pressure 180/67 mmHg pulse rate in the 80s afebrile Breath sounds are clear no rhonchi no crackles No JVD No extremity edema Soft abdomen REVIEW OF LABS, ECG & MEDICAL DATA Patient is on xarelto, atorvastatin aspirin amitriptyline and metoprolol succinate 25 mg twice daily along with losartan Physical Exam Vitals: Vital Signs Temp Pulse Pulse Resp BP Pulse Ox 01/15/23 14:12 78 14 110/71 96 01/15/23 13:57 97.1 F L 84 14 108/67 97 01/15/23 06:49 98.5 F 62 18 163/82 98 Intake and Output 01/14/23 01/15/23 01/15/23 22:59 06:59 14:59 Intake Total 100 1702 Balance 100 1702 Intake: IV 100 1702 Other: Weight 82.9 kg Past Medical History Past Medical History: Atrial Fibrillation, GERD/Reflux, Hyperlipidemia, Hypertension, Osteoarthritis (OA), Sleep Apnea/CPAP/BIPAP Additional Past Medical History / Comment(s): HX of Pancreatitis, uses CPAP, urinary leakage, see Dr. Lane H & P History of Any Multi-Drug Resistant Organisms: None Reported Past Surgical History: Cholecystectomy, Coronary Bypass/CABG, Heart Catheterization, Tonsillectomy, Tubal Ligation Additional Past Surgical History / Comment(s): Dev. Septum, triple bypass Past Anesthesia/Blood Transfusion Reactions: Previous Problems w/ Anesthesia, Motion Sickness Additional Past Anesthesia/Blood Transfusion Reaction / Comment(s): was told she was diff. intubation with last surgery( dev. septum)-this was not done locally, had no problems w/open heart surg. or intubation Smoking Status: Former smoker - Past Family History Father Family Medical History: Cancer Physical Examination Vital Signs Temp Pulse Pulse Resp BP Pulse Ox 01/15/23 14:12 78 14 110/71 96 01/15/23 13:57 97.1 F L 84 14 108/67 97 01/15/23 06:49 98.5 F 62 18 163/82 98 Intake and Output 01/14/23 01/15/23 01/15/23 22:59 06:59 14:59 Intake Total 100 1702 Balance 100 1702 Intake: IV 100 1702 Other: Weight 82.9 kg Results Current Medications Generic Name Dose Route Start Last Admin Trade Name Prosperq PRN Reason Stop Dose Admin Lactated Ringer's 1,000 mls @ 20 mls/hr 01/15/23 06:03 Lactated Ringers IV 02/14/23 06:04 .Q24H ELANA Sodium Chloride 1,000 mls @ 20 mls/hr 01/15/23 06:03 01/15/23 06:51 Saline 0.9% IV 02/14/23 06:04 1,000 mls .Q24H ELANA Administration Intake and Output 01/14/23 01/15/23 01/15/23 22:59 06:59 14:59 Intake Total 100 1702 Balance 100 1702 Intake: IV 100 1702 Other: Weight 82.9 kg
--- NOTE | 2023-01-15 14:34 | P.EPPROC ---
- EP Procedure Note Electrophysiology Procedure Note: PROCEDURE A. fib ablation/pulmonary vein isolation/left atrial roof ablation/left atrial septal ablation /left atrial ridge ablation Ablation of a focal, extrapulmonary source of atrial fibrillation upper anterior wall of the left atrium, A. fib terminated and converted to typical atrial flu tter Successful ablation for typical atrial flutter in termination of atrial fibrillation to sinus rhythm DIAGNOSIS Paroxysmal Atrial fibrillation, symptomatic, refractory to therapy RESULT No left atrial appendage mass seen on intracardiac echo. Patient has a residual large left atrial appendage stump despite intraoperative ligation, needs lifelong anticoagulation Successful A. fib ablation/pulmonary vein isolation of all veins using cryo- ablation Complete entrance block in all 4 veins confirmed Phrenic nerve paresis during the right pulmonary vein ablation, transient with c omplete recovery in 7-10 minutes Esophageal deflection YES Left atrial roof ablation Left atrial septal ablation Left atrial ridge ablation Focal ablation of an atrial fibrillation source, extrapulmonary, upper anterior LA wall Converted from atrial fibrillation to typical atrial flutter, successful atrial flutter ablation with resumption of sinus rhythm Electrical cardioversion with a synchronized shock across the chest for induction of atrial fibrillation at initial EP study , prior to any ablation YES Abnormal corrected sinus node recovery time Abnormal AV node function antegradely, AV node Wenckebach block 590 ms PROCEDURE DETAILS Written informed consent prior to procedure. Patient brought to the EP lab. General anesthesia given. Heparin administered. A city maintained above 300 seconds Both groins prepped and draped per protocol and venous sheaths placed. Esophagus intubated, circa catheter for temperature monitoring an endoscope for possible esophageal deflection. Phrenic nerve monitoring performed. Esophageal temperature monitoring performed. Esophageal deflection performed if circa catheter overlapping with the balloon or circa temperature less than 27.5C Intracardiac echocardiography performed. Pericardium evaluated. Left atrial appendage evaluated. Left atrium evaluated along with pulmonary veins Transseptal catheterization performed under fluoroscopic guidance and intracardiac echo guidance Cryoablation sheath exchanged, balloon catheter along with achieve catheter placed in the left atrium. Diagnostic EP study was performed with induction of atrial tachycardia and atrial fibrillation Electrical cardioversion performed to sinus rhythm Pulmonary veins isolated in the following sequence: Left superior pulmonary vein followed by left inferior pulmonary vein, followed by right inferior pulmonary vein and lastly right superior pulmonary vein. Phrenic nerve stimulation along with capture thresholds within the SVC and right superior pulmonary vein to identify the phrenic nerve proximity to the cryo- balloon. Pulmonary veins isolated and confirmed with entrance and exit block. Phrenic nerve integrity confirmed at the end of the procedure Ablation of the left atrial roof performed with sequential lesions from the left superior to the right superior pulmonary veins. Ablation of the electrograms confirmed Ablation of the left atrial septum with RF, Ablation of electrograms confirmed and the septal area completely isolated Ablation of the left atrial ridge with RF, good contact force and energy Ablation of a focal source of atrial fibrillation in the anterior wall of the left atrium, extrapulmonary RF ablation here terminated atrial fibrillation which changed to atrial flutter Typical atrial flutter ablation with confirmation of complete bidirectional block EP study repeated with high-dose Isuprel. No inducible atrial fibrillation on high-dose Isuprel Diagnostic catheters for the high right atrium, His bundle, coronary sinus placed. LA and RA pressures recorded RA pressure: 19/04/12 LA pressure: 24/04/14 Diagnostic EP study with coronary sinus pacing and recording Baseline measurements: MA interval 157 ms, QRS 99 ms and QT 405 ms Sinus node recovery times at 600 and@500 ms were 13-7 and 1329 ms. Prolonged corrected sinus node recovery times AV node Wenckebach block 590 ms Venous sheaths were removed and hemostasis assured with a closure device. Patient extubated and transferred to recovery Increase procedural time During ablation multiple attempts had to be made to move the esophagus a safe distance of the from the pulmonary vein draining cryoablation, to avoid excessive thermal cooling of the esophagus This took extra time and effort to keep the esophagus a safe distance away from the cryoablation balloon. Transient phrenic nerve paresis occurred during RSP V ablation. This occurred towards the end of the ablation. Which the complete recovery by 7-10 minutes PROCEDURES PERFORMED Diagnostic EP study CS pacing and recording Left and right transseptal catheterization Catheter the mapping of the tachycardia Intracardiac echocardiography Pulmonary vein isolation with transseptal and comprehensive EPS, 24998 Extended procedure duration Drug infusion, +39901 Left atrial roof line, +[id number] Linear ablation, left atrium septum, +[id number] Linear ablation in the left atrial appendage, class 63424 Focal ablation of atrial fibrillation anterior LA wall, A. fib terminated, +[id number] Typical atrial flutter ablation, linear ablation, +43580 Electrical cardioversion with a synchronized shock across the chest [id number]
[2023-01-15] MEDS ORDERED: ACETAMINOPHEN IV (For NPO) 1,000 MG in EMPTY BAG 1 BAG IVPB ONE (14:43)
[2023-01-15] MEDS ORDERED: ACETAMINOPHEN TAB 325 MG TAB PO PRN (14:43)
[2023-01-15] MEDS ORDERED: FAMOTIDINE 20 MG/2 ML VIAL IVP ONE (14:45)
--- NOTE | 2023-01-15 14:56 | P.PRLE ---
RE: Annalise Fletcher Dear Salvador Woody underwent an A. fib ablation with termination of A. fib successfully Hopefully this results in a significant reduction in her A. fib burden More importantly, she had a left atrial appendage appendectomy performed at the time of her bypass surgery However intracardiac echo today revealed a large, residual left atrial appendage stump and therefore she remains at risk for the thromboembolism and requires lifelong anticoagulation I am reducing her dose of metoprolol succinate to 25 mg once daily now She will remain on all the other medications including anticoagulation Thank you for entrusting me with the care of the patient Warm regards Sincerely [address]
[2023-01-15] MEDS: LACTATED RINGERS 1,000 ML IV SCH ×2 (19:43→20:15)
[2023-01-15] MEDS: LOSARTAN 25 MG TAB PO SCH (20:10)
[2023-01-16 04:33] VITALS: RESP 16
[2023-01-16] MEDS: SODIUM CHLORIDE 0.9% 1,000 ML IV SCH (06:22)
[2023-01-16] MEDS ORDERED: PANTOPRAZOLE 40 MG TABLET PO SCH (07:30)
--- NOTE | 2023-01-16 08:02 | P.DS ---
Providers Attending physician: Sea Lane Primary care physician: Salvador Vo [facility] Course: Patient is doing well. She does have a sore throat but is able to swallow. No respiratory distress Lying comfortably in bed in supine position Breath sounds are equal bilaterally no rhonchi no crackles Normal heart sounds are regular no murmurs Groins of healed well no hematoma Blood pressure 134/82 mmHg pulse rate in the 80s Impression Persistent atrial fibrillation and atrial tachycardia post surgical maze Large left atrial appendage increases despite surgical ligation of the appendage, necessitating continuation of anticoagulation Status post A. fib ablation with PVI, linear ablation the left atrial roof, septal ablation, focal ablation of atrial fibrillation focus on the anterior wall of the LA and termination of atrial fibrillation, conversion to typical atrial flutter Successful atrial flutter ablation, to sinus rhythm Transient mild phrenic nerve paresis with recovery within 7-10 minutes Evidence of sick sinus syndrome and AV node disease on EP study Suggest Ambulation, hydration, incentive spirometry Continue anticoagulation Reduce the dose of metoprolol succinate 25 mg once daily Watch blood pressure and consider increasing the dose of losartan as an outpati ent Home blood pressure monitoring Home by this afternoon if hemodynamic a stable Patient Condition at Discharge: Stable Plan - Discharge Summary Discharge Rx Participant: Yes New Discharge Prescriptions: New Metoprolol Succinate [Metoprolol Succinate ER] 25 mg PO DAILY #90 tab Discontinued Metoprolol Succinate (ER) [Toprol Xl] 25 mg PO BID No Action Omeprazole 20 mg PO DAILY Atorvastatin [Lipitor] 40 mg PO DAILY Amitriptyline HCl [Elavil] 25 mg PO HS Aspirin 81 mg PO DAILY Rivaroxaban [Xarelto] 20 mg PO DAILY Cyanocobalamin (Vitamin B-12) [Vitamin B-12] 1,000 mcg PO DAILY Cranberry Fruit Extract [Cranberry] 500 mg PO DAILY Losartan [Cozaar] 25 mg PO BID Solifenacin Succinate [Vesicare] 10 mg PO DAILY Discharge Medication List Omeprazole 20 mg PO DAILY 10/28/18 [History] Amitriptyline HCl [Elavil] 25 mg PO HS 09/27/20 [History] Atorvastatin [Lipitor] 40 mg PO DAILY 09/27/20 [History] Aspirin 81 mg PO DAILY 01/13/23 [History] Cranberry Fruit Extract [Cranberry] 500 mg PO DAILY 01/13/23 [History] Cyanocobalamin (Vitamin B-12) [Vitamin B-12] 1,000 mcg PO DAILY 01/13/23 [History] Losartan [Cozaar] 25 mg PO BID 01/13/23 [History] Rivaroxaban [Xarelto] 20 mg PO DAILY 01/13/23 [History] Solifenacin Succinate [Vesicare] 10 mg PO DAILY 01/13/23 [History] Metoprolol Succinate [Metoprolol Succinate ER] 25 mg PO DAILY #90 tab 01/15/23 [Rx]
[2023-01-16] MEDS: LOSARTAN 25 MG TAB PO SCH (08:27)
[2023-01-16] MEDS ORDERED: ASPIRIN 81 MG PO SCH (09:00)
[2023-01-16] MEDS ORDERED: RIVAROXABAN 20 MG TAB PO SCH (09:00)
[2023-01-16] MEDS ORDERED: ATORVASTATIN 40 MG TAB PO SCH (09:00)
[2023-01-16 10:29] VITALS: BP 156/94; PULSE 107; TEMP 98.1
== END 2023-01-16 12:22 ==
LOC: CATHEP 06:18 → 6NMEDSUR 13:30 → CATHEP 01-16 12:22
PROVIDERS: ATTEND Internal Medicine Clinical Cardiac Electrophysiology
DX: I48.0 Paroxysmal atrial fibrillation (principal); I48.3 Typical atrial flutter; I44.2 Atrioventricular block, complete; I25.10 Atherosclerotic heart disease of native coronary artery without angina pectoris; Z95.1 Presence of aortocoronary bypass graft; I49.5 Sick sinus syndrome; I47.1 Supraventricular tachycardia; I10 Essential (primary) hypertension; E78.5 Hyperlipidemia, unspecified; G47.33 Obstructive sleep apnea (adult) (pediatric); Z99.89 Dependence on other enabling machines and devices; M19.90 Unspecified osteoarthritis, unspecified site; K21.9 Gastro-esophageal reflux disease without esophagitis; Z87.891 Personal history of nicotine dependence; Z79.01 Long term (current) use of anticoagulants; Z79.82 Long term (current) use of aspirin; Z79.899 Other long term (current) drug therapy; Z88.5 Allergy status to narcotic agent
CPT/HCPCS: 93656; 93657; 93623; 86900; 86901; 86850; C1894 ×2; C1769; C1760; C1730 ×2; C1759; C1893; C1733; C1766; C1732; J2250; J0330; J1644 ×3; J1940; J2710; J2001 ×2; J3010; J2370; J2704; Q9967

== ENCOUNTER → 2023-07-13 | Outpatient (CLI) | payer MEDICARE ==
[2023-07-13 09:36] LABS: Blood Urea Nitrogen 16 mg/dL (7-17)
[2023-07-13 09:37] LABS: African American GFR (CKD) 64 (>60 ml/min/1.73 sqM); Non-African American GFR(CKD) 55 (>60 ml/min/1.73 sqM)
--- NOTE | 2023-07-16 08:54 | CT ---
EXAMINATION TYPE: CT urogram wo/w con DATE OF EXAM: 07/13/2023 COMPARISON: None INDICATION: gross hematuria DLP: 2708.80 mGycm, Automated exposure control for dose reduction was used. CONTRAST: 100 mL of Isovue 300. Study performed TECHNIQUE: Axial images were obtained from above the diaphragm to the pubic rami in the axial plane a t 5 mm thick sections. Reconstructed images are reviewed on the computer in the coronal plane. FINDINGS: Limited CT sections are obtained the lung bases. The lung bases are clear. CT ABDOMEN: Liver: Normal Spleen: Normal Pancreas: Normal Adrenal glands: The adrenal glands are normal. Gallbladder: Normal Kidneys: No masses are evident. No hydronephrosis is present. There is a 0.9 cm cortical renal cyst mid right kidney. No renal stones are evident. 3-D reconstruction images are performed through the kidneys ureter and bladder on separate computer. Renal calyces infundibula and renal pelves appear normal. Ureters follow a normal caliber course and contour to the urinary bladder. No suspicious acute changes evident. Aorta: Vascular calcification is within the aorta. Inferior vena cava: Normal. CT PELVIS: Loops of bowel within the abdomen and pelvis are normal. Study is without oral contrast limits orin wel evaluation. Large fecal boluses of the rectum. Appendix: Normal as visualized. Urinary bladder: Normal. No filling defects are identified. Genitourinary structures: Uterus and adnexa appear normal. Osseous structures: No suspicious lytic or sclerotic lesions. Degenerative disc changes present L5-S1 . IMPRESSION: 1. No suspicious abnormality account for gross hematuria. 2. Small cortical renal cysts mid right kidney
== END | disposition home or self-care (01) ==
LOC: RADCTMAIN 08:47
PROVIDERS: ATTEND Urology
DX: N28.1 Cyst of kidney, acquired (principal); R31.0 Gross hematuria
CPT/HCPCS: 82565; 84520; 74178; 36415; 74400; Q9967

== ENCOUNTER → 2023-07-28 | Outpatient (CLI) | payer MEDICARE ==
--- NOTE | 2023-07-28 08:40 | US ---
EXAMINATION TYPE: US duplex aorta DATE OF EXAM: 07/28/2023 COMPARISON: US 2021 CLINICAL INDICATION: Female, 67 years old with history of Z13.6 SCREENING FOR CARDIOVASCULAR DISEASE; TECHNIQUE: Multiple sonographic images of the abdominal aorta are obtained. FINDINGS: EXAM MEASUREMENTS: Abdominal Aorta: Proximal: 2.4 x 2.2cm Mid: 2.0 x 2.1cm Distal: 1.6 x 1.7cm Bifurcation: Right Illiac: 1.0 x 1.1cm Left Illiac: 1.0 x 1.1cm Brim Raiser notes: No AAA seen IMPRESSION: No sonographic evidence for AAA.
--- NOTE | 2023-07-28 17:51 | BD ---
EXAMINATION TYPE: Axial Bone Density DATE OF EXAM: 07/28/2023 CLINICAL HISTORY: 67 years old Female. ICD-10 CODE: Z78.0 ASYMPTOMATIC MENOPAUSAL STATE Height: 64 Weight: 177.9 FRAX RISK QUESTIONS: Alcohol (3 or more units per day): no Family History (Parent hip fracture): yes Glucocorticoids (More than 3mos): no (Ex: prednisone, prednisolone, methylprednisolone, dexamethasone, and hydrocortisone). History of Fracture in Adulthood: yes Secondary Osteoporosis: 1. Type 1 Diabetes: no 2. Hyperthyroidism: no 3. Menopause before 45: no 4. Malnutrition: no 5. Chronic liver disease: no Rheumatoid Arthritis: no Current Tobacco Use: no RISK FACTORS HISTORY OF: History of Wrist Fracture: right When: as a child Surgery to Spine/Hip(right/left)/Wrist (right/left): no EXAM MEASUREMENTS: Bone mineral densitometry was performed using the Clickable System. Bone mineral density as measured about the Lumbar spine is: ----- L1-L4(G/cm2): 1.456 T Score Values are as follows: ----- L1: 1.4 ----- L2: 2.1 ----- L3: 3.3 ----- L4: 2.1 ----- L1-L4: 2.3 Z Score Values are as follows: ----- L1: 2.5 ----- L2: 3.2 ----- L3: 4.4 ----- L4: 3.2 ----- L1-L4: 3.4 Bone mineral density baseline: Bone mineral density about the R hip (g/cm2): 1.087 Bone mineral density about the L hip (g/cm2): 1.003 T Score values are as follows: -----R Neck: -0.8 -----L Neck: -1.2 -----R Total: 0.6 -----L Total: 0.0 Z Score values are as follows: -----R Neck: 0.4 -----L Neck: 0.0 -----R Total: 1.5 -----L Total: 0.9 Bone mineral density : baseline FRAX%s: The graph provided illustrates a 24.0% chance for a major osteoporotic fx and a 1.7% chance f or the hips probability for fx in 10 years time. IMPRESSION: Osteopenia (T Score between -2.5 and -1). There is slightly increased risk of fracture and the patient may be considered for treatment. Re-Screen 2-5 years. NOTE: T-SCORE=SD OF THE YOUNG ADULT MEAN.
== END | disposition home or self-care (01) ==
LOC: RADBDWWP 07:18
PROVIDERS: ATTEND Family Medicine
DX: Z13.6 Encounter for screening for cardiovascular disorders (principal); M85.852 Other specified disorders of bone density and structure, left thigh; Z78.0 Asymptomatic menopausal state
CPT/HCPCS: 77080; 93979

== ENCOUNTER 2023-08-26 02:53 | Emergency (ER) | payer MEDICARE ==
[2023-08-26 03:07] VITALS: RESP 18
[2023-08-26] MEDS ORDERED: TRANEXAMIC ACID 1,000 MG/10 ML VIAL MISCELLANE ONE (03:19)
[2023-08-26] MEDS ORDERED: OXYMETAZOLINE 0.05% NASL SPRAY 1 SPRAY BOTTLE NASAL STA (03:19)
[2023-08-26] MEDS ORDERED: SALINE NASAL GEL 14.1 GM TUBE NASAL PRN (05:08)
--- NOTE | 2023-08-26 05:13 | ED ---
ENT HPI - General Chief complaint: ENT Stated complaint: nose bleed Time Seen by Provider: 08/26/23 03:05 Source: patient Mode of arrival: ambulatory Limitations: no limitations - History of Present Illness Initial comments: 67-year-old female presents emergency department reporting nosebleed. States that for the past 3 hours she has had bleeding from her right nare. She denies any trauma. He does wear CPAP at night to help her breathe. Patient takes Xarelto for her history of A-fib. States that she has been compliant with it. Denies any other bleeding to include hemoptysis, hematemesis, hematuria. No black or bloody stools. She has been putting pressure to the site however has been unsuccessful in stopping it and therefore came into the emergency department for evaluation - Related Data Home Medications Medication Instructions Recorded Confirmed Omeprazole 20 mg PO DAILY 10/28/18 01/15/23 Amitriptyline HCl [Elavil] 25 mg PO HS 09/27/20 01/15/23 Atorvastatin [Lipitor] 40 mg PO DAILY 09/27/20 01/15/23 Aspirin 81 mg PO DAILY 01/13/23 01/15/23 Cranberry Fruit Extract [Cranberry] 500 mg PO DAILY 01/13/23 01/15/23 Cyanocobalamin (Vitamin B-12) 1,000 mcg PO DAILY 01/13/23 01/15/23 [Vitamin B-12] Losartan [Cozaar] 25 mg PO BID 01/13/23 01/15/23 Rivaroxaban [Xarelto] 20 mg PO DAILY 01/13/23 01/15/23 Solifenacin Succinate [Vesicare] 10 mg PO DAILY 01/13/23 01/15/23 Previous Rx's Medication Instructions Recorded Metoprolol Succinate [Metoprolol 25 mg PO DAILY #90 tab 01/15/23 Succinate ER] Bacitracin Zinc Oint 1 applic TOPICAL BID #28 gm 08/26/23 Saline Nasal Gel [Sterling Nasal Gel] 1 applic TOPICAL Q4H #14.1 gm 08/26/23 Allergies Allergy/AdvReac Type Severity Reaction Status Date / Time morphine AdvReac Hallucinati Verified 08/26/23 03:02 ons Review of Systems ROS Statement: Those systems with pertinent positive or pertinent negative responses have been documented in the HPI. ROS Other: All systems not noted in ROS Statement are negative. Past Medical History Past Medical History: Atrial Fibrillation, Hyperlipidemia, Hypertension, Osteoarthritis (OA), Sleep Apnea/CPAP/BIPAP Additional Past Medical History / Comment(s): HX of Pancreatitis, arthritis History of Any Multi-Drug Resistant Organisms: None Reported Past Surgical History: Cholecystectomy, Tonsillectomy, Tubal Ligation Additional Past Surgical History / Comment(s): Dev. Septum Past Anesthesia/Blood Transfusion Reactions: Motion Sickness Additional Past Anesthesia/Blood Transfusion Reaction / Comment(s): was told she was diff. intubation with last surgery( dev. septum) Past Psychological History: No Psychological Hx Reported Smoking Status: Former smoker Past Alcohol Use History: None Reported Past Drug Use History: None Reported - Past Family History Father Family Medical History: Cancer General Exam Limitations: no limitations General appearance: alert, in no apparent distress Head exam: Present: atraumatic, normocephalic, normal inspection Eye exam: Present: normal appearance, PERRL, EOMI. Absent: scleral icterus, conjunctival injection, periorbital swelling ENT exam: Present: normal oropharynx, other (Patient has an erythematous, oozing right septal mucosa. There is a small amount of bright red blood. There is some dried blood in the left nare but no active bleeding. Bleeding appears anterior. No posterior bleed identified. No septal hematoma) Neck exam: Present: normal inspection. Absent: tenderness, meningismus, lymphadenopathy Respiratory exam: Present: normal lung sounds bilaterally. Absent: respiratory distress, wheezes, rales, rhonchi, stridor Course Vital Signs 08/26/23 08/26/23 03:00 05:32 Temperature 98.7 F 98.3 F Pulse Rate 78 79 Respiratory 18 18 Rate Blood Pressure 157/91 143/82 O2 Sat by Pulse 99 100 Oximetry Medical Decision Making - Medical Decision Making Was pt. sent in by a medical professional or institution (, PA, CONTROL PANEL BUILDER, urgent care, hospital, or custodial...) When possible be specific @ -No Did you speak to anyone other than the patient for history (EMS, parent, family, police, friend...)? What history was obtained from this source @ -No Did you review nursing and triage notes (agree or disagree)? Why? @ -I reviewed and agree with nursing and triage notes Were old charts reviewed (outside hosp., previous admission, EMS record, old EKG, old radiological studies, urgent care reports/EKG's, custodial records)? Report findings @ -No old charts were reviewed Differential Diagnosis (chest pain, altered mental status, abdominal pain women, abdominal pain men, vaginal bleeding, weakness, fever, dyspnea, syncope, headache, dizziness, GI bleed, back pain, seizure, CVA, palpatations, mental health, musculoskeletal)? @ -Anterior epistaxis, posterior epistaxis, trauma, septal hematoma, clotting disorder EKG interpreted by me (3pts min.). @ -Not done X-rays interpreted by me (1pt min.). @ -None done CT interpreted by me (1pt min.). @ -None done U/S interpreted by me (1pt. min.). @ -None done What testing was considered but not performed or refused? (CT, X-rays, U/S, labs)? Why? @ -None What meds were considered but not given or refused? Why? @ -None Did you discuss the management of the patient with other professionals (professionals i.e. , PA, CONTROL PANEL BUILDER, lab, RT, psych nurse, nephrology social worker, head golf coach, teacher, chief growth officer, patient case coordinator)? Give summary @ -No Was smoking cessation discussed for >3mins.? @ -No Was critical care preformed (if so, how long)? @ -No Were there social determinants of health that impacted care today? How? (Homelessness, low income, unemployed, alcoholism, drug addiction, transportation, low edu. Level, literacy, decrease access to med. care, long term, rehab)? @ -No Was there de-escalation of care discussed even if they declined (Discuss DNR or withdrawal of care, Hospice)? DNR status @ -No What co-morbidities impacted this encounter? (DM, HTN, Smoking, COPD, CAD, Cancer, CVA, ARF, Chemo, Hep., AIDS, mental health diagnosis, sleep apnea, morbid obesity)? @ -A-fib on anticoagulation Was patient admitted / discharged? Hospital course, mention meds given and rou te, prescriptions, significant lab abnormalities, going to OR and other pertinent info. @ -Upon arrival patient was placed into room 31. Thorough history and physical exam was performed. I did place Afrin and TXA in the patient's right nostril. The nare is then evaluated and there is no active bleeding at this time. Patient is watched in the emergency department for an hour without rebleeding. At this time the patient will be discharged home without packing if she does not need it. She is to continue taking her Eliquis as directed. I also recommended placing nasal saline in the nose to keep the area moist. Follow-up with her doctor return for any new or worsening symptoms. Patient agreeable to the plan she was discharged in stable condition Undiagnosed new problem with uncertain prognosis? @ -No Drug Therapy requiring intensive monitoring for toxicity (Heparin, Nitro, Insulin, Cardizem)? @ -No Were any procedures done? @ -No Diagnosis/symptom? @ -Acute anterior epistaxis Acute, or Chronic, or Acute on Chronic? @ -Acute Uncomplicated (without systemic symptoms) or Complicated (systemic symptoms)? @ -Uncomplicated Side effects of treatment? @ -No Exacerbation, Progression, or Severe Exacerbation? @ -No Poses a threat to life or bodily function? How? (Chest pain, [place], [place], pneumonia, PE, COPD, DKA, ARF, appy, cholecystitis, CVA, Diverticulitis, Homicidal, Suicidal, threat to staff... and all critical care pts) @ -No Disposition Clinical Impression: Anterior epistaxis Disposition: HOME SELF-CARE Condition: Stable Instructions (If sedation given, give patient instructions): Nosebleed (ED) Additional Instructions: Use the nasal saline several times per day to keep your nasal passages moist. You may also use the bacitracin on a Q-tip and gently swirl inside your nostrils twice a day. Follow-up with ENT and return for any new or worsening symptoms. If your nose was to rebleed, use two squirts of the Afrin and place the clamp on Prescriptions: Saline Nasal Gel [Sterling Nasal Gel] 1 applic TOPICAL Q4H #14.1 gm Bacitracin Zinc Oint 1 applic TOPICAL BID #28 gm Is patient prescribed a controlled substance at d/c from ED?: No Referrals: Salvador Vo MD [Primary Care Provider] - 1-2 days Juventino Finnegan MD [STAFF PHYSICIAN] - 1-2 days Time of Disposition: 05:12
[2023-08-26 05:47] VITALS: BP 143/82; PULSE 79; TEMP 98.3
== END 2023-08-26 05:33 | disposition home or self-care (01) ==
LOC: EC 02:53
DX: R04.0 Epistaxis (principal); I48.91 Unspecified atrial fibrillation; E78.5 Hyperlipidemia, unspecified; I10 Essential (primary) hypertension; G47.30 Sleep apnea, unspecified; Z87.891 Personal history of nicotine dependence; Z79.82 Long term (current) use of aspirin; Z79.02 Long term (current) use of antithrombotics/antiplatelets; Z79.899 Other long term (current) drug therapy; Z88.5 Allergy status to narcotic agent
CPT/HCPCS: 99283

== ENCOUNTER 2023-10-14 16:59 | Emergency (ER) | payer MEDICARE ==
--- NOTE | 2023-10-14 19:02 | ED ---
ENT HPI - General Chief complaint: ENT Stated complaint: Nose Bleed Time Seen by Provider: 10/14/23 17:15 Source: patient, family, RN notes reviewed Mode of arrival: ambulatory Limitations: no limitations - History of Present Illness Initial comments: Patient is a 68-year-old female presented to the ER with chief complaint of nosebleed. Patient reports she had a cauterization and septal procedure done by Dr. Maldonado on 10/08/23. She reports she followed up with him on Thursday and everything checked out okay. She states around 9:30 AM this morning she started to having nosebleed. It has been on and off throughout the day. She is taking Xarelto. She reports she tried to be seen at Dr. Alves's office but they stated "they do not see active nosebleeds". She does report she has packing in her nose. Does describe it as draining down the back of her throat. It is only on the right side. Denies any injuries, sneezing, difficulty breathing. - Related Data Home Medications Medication Instructions Recorded Confirmed Omeprazole 20 mg PO DAILY 10/28/18 10/07/23 Atorvastatin [Lipitor] 40 mg PO DAILY 09/27/20 10/07/23 Aspirin 81 mg PO DAILY 01/13/23 10/07/23 Cranberry Fruit Extract [Cranberry] 500 mg PO DAILY 01/13/23 10/07/23 Cyanocobalamin (Vitamin B-12) 1,000 mcg PO DAILY 01/13/23 10/07/23 [Vitamin B-12] Losartan [Cozaar] 25 mg PO BID 01/13/23 10/07/23 Solifenacin Succinate [Vesicare] 10 mg PO DAILY 01/13/23 10/07/23 Rivaroxaban [Xarelto] 15 mg PO DAILY 10/07/23 Previous Rx's Medication Instructions Recorded Metoprolol Succinate [Metoprolol 25 mg PO DAILY #90 tab 01/15/23 Succinate ER] Allergies Allergy/AdvReac Type Severity Reaction Status Date / Time morphine AdvReac Hallucinati Verified 10/07/23 13:15 ons Review of Systems ROS Statement: Those systems with pertinent positive or pertinent negative responses have been documented in the HPI. ROS Other: All systems not noted in ROS Statement are negative. Past Medical History Past Medical History: Atrial Fibrillation, Hyperlipidemia, Hypertension, Osteoarthritis (OA), Sleep Apnea/CPAP/BIPAP Additional Past Medical History / Comment(s): HX of Pancreatitis History of Any Multi-Drug Resistant Organisms: None Reported Past Surgical History: Cholecystectomy, Tonsillectomy, Tubal Ligation Additional Past Surgical History / Comment(s): Dev. Septum repair, sadi. cataracts rem. Past Anesthesia/Blood Transfusion Reactions: Motion Sickness Additional Past Anesthesia/Blood Transfusion Reaction / Comment(s): was told she was diff. intubation with last surgery(dev. septum) but states she has never typically had a problem Past Psychological History: No Psychological Hx Reported Smoking Status: Former smoker Past Alcohol Use History: None Reported Past Drug Use History: None Reported - Past Family History Father Family Medical History: Cancer General Exam Limitations: no limitations General appearance: alert, in no apparent distress Head exam: Present: atraumatic, normocephalic, normal inspection Eye exam: Present: normal appearance, PERRL, EOMI. Absent: scleral icterus, conjunctival injection, periorbital swelling Pupils: Present: normal accommodation ENT exam: Present: normal exam, normal oropharynx, mucous membranes moist, other (Packing in place in right nostril. Left nostril patent no active bleeding.) Neck exam: Present: normal inspection. Absent: tenderness, meningismus, lymphadenopathy Respiratory exam: Present: normal lung sounds bilaterally. Absent: respiratory distress, wheezes, rales, rhonchi, stridor Cardiovascular Exam: Present: regular rate, normal rhythm, normal heart sounds. Absent: systolic murmur, diastolic murmur, rubs, gallop, clicks Neurological exam: Present: alert, oriented X3, CN II-XII intact Psychiatric exam: Present: normal affect, normal mood Skin exam: Present: warm, dry, intact, normal color. Absent: rash Course Vital Signs 10/14/23 10/14/23 17:14 19:26 Temperature 98.4 F 97.6 F Pulse Rate 71 84 Respiratory 20 15 Rate Blood Pressure 168/9 144/88 O2 Sat by Pulse 98 96 Oximetry Medical Decision Making - Medical Decision Making Was pt. sent in by a medical professional or institution (, PA, REGISTRATION CLERK, urgent care, hospital, or intermediate...) When possible be specific @ -No Did you speak to anyone other than the patient for history (EMS, parent, family, police, friend...)? What history was obtained from this source @ -No Did you review nursing and triage notes (agree or disagree)? Why? @ -I reviewed and agree with nursing and triage notes Were old charts reviewed (outside hosp., previous admission, EMS record, old EKG, old radiological studies, urgent care reports/EKG's, intermediate records)? Report findings @ -No old charts were reviewed Differential Diagnosis (chest pain, altered mental status, abdominal pain women, abdominal pain men, vaginal bleeding, weakness, fever, dyspnea, syncope, headache, dizziness, GI bleed, back pain, seizure, CVA, palpatations, mental health, musculoskeletal)? @ -Epistaxis, septal hematoma, foreign body, nasal bone fracture, this list is not meant to be all-inclusive EKG interpreted by me (3pts min.). @ -[None X-rays interpreted by me (1pt min.). @ -None done CT interpreted by me (1pt min.). @ -None done U/S interpreted by me (1pt. min.). @ -None done What testing was considered but not performed or refused? (CT, X-rays, U/S, labs)? Why? @ -None What meds were considered but not given or refused? Why? @ -None Did you discuss the management of the patient with other professionals (professionals i.e. , PA, REGISTRATION CLERK, lab, RT, psych nurse, geriatric social work professor, cartoonist special effects, teacher, flight deck officer, case management associate)? Give summary @ -No Was smoking cessation discussed for >3mins.? @ -No Was critical care preformed (if so, how long)? @ -No Were there social determinants of health that impacted care today? How? (Homelessness, low income, unemployed, alcoholism, drug addiction, transportation, low edu. Level, literacy, decrease access to med. care, senior living, rehab)? @ -No Was there de-escalation of care discussed even if they declined (Discuss DNR or withdrawal of care, Hospice)? DNR status @ -No What co-morbidities impacted this encounter? (DM, HTN, Smoking, COPD, CAD, Cancer, CVA, ARF, Chemo, Hep., AIDS, mental health diagnosis, sleep apnea, morbid obesity)? @ -None Was patient admitted / discharged? Hospital course, mention meds given and route, prescriptions, significant lab abnormalities, going to OR and other pertinent info. @ -Discharge. Patient is a 68-year-old female presented to ER with chief complaint of epistaxis. History and physical exam completed. Vital stable. Patient in no signs of acute distress and nontoxic-appearing. Patient did have packing in place in right nostril. No active bleeding. Left nostril patent. Findings discussed with patient, all questions answered. I advised her to follow-up with in the next day. Return parameters discussed. Patient discharged stable condition with follow-up to ENT, Dr. Alves. Patient and family, at bedside, expressed understanding and agreement with care plan. Case discussed with ED attending, Dr. Monge. Undiagnosed new problem with uncertain prognosis? @ -No Drug Therapy requiring intensive monitoring for toxicity (Heparin, Nitro, Insulin, Cardizem)? @ -No Were any procedures done? @ -No Diagnosis/symptom? @ -Epistaxis Acute, or Chronic, or Acute on Chronic? @ -Acute Uncomplicated (without systemic symptoms) or Complicated (systemic symptoms)? @ -Uncomplicated Side effects of treatment? @ -No Exacerbation, Progression, or Severe Exacerbation? @ -No Poses a threat to life or bodily function? How? (Chest pain, [place], [place], pneumonia, PE, COPD, DKA, ARF, appy, cholecystitis, CVA, Diverticulitis, Homicidal, Suicidal, threat to staff... and all critical care pts) @ -No Disposition Clinical Impression: Epistaxis Disposition: HOME SELF-CARE Condition: Stable Instructions (If sedation given, give patient instructions): Nosebleed (ED) Additional Instructions: Please follow-up with Dr. Alves in the next 1-2 days. Return to the ER for any new concerns. Is patient prescribed a controlled substance at d/c from ED?: No Referrals: Salvador Vo MD [Primary Care Provider] - 1-2 days Matthew Alves DO [Doctor of Osteopathic Medicine] - 1-2 days Time of Disposition: 19:02
[2023-10-14 19:28] VITALS: BP 144/88; PULSE 84; RESP 15; TEMP 97.6
== END 2023-10-14 19:26 | disposition home or self-care (01) ==
LOC: EC 16:59
DX: R04.0 Epistaxis (principal); I48.91 Unspecified atrial fibrillation; E78.5 Hyperlipidemia, unspecified; I10 Essential (primary) hypertension; G47.30 Sleep apnea, unspecified; Z87.891 Personal history of nicotine dependence; Z79.899 Other long term (current) drug therapy; Z79.02 Long term (current) use of antithrombotics/antiplatelets; Z88.6 Allergy status to analgesic agent
CPT/HCPCS: 99283

== ENCOUNTER 2023-10-15 10:38 | Emergency (ER) | payer MEDICARE ==
--- NOTE | 2023-10-15 10:51 | ED ---
ENT HPI - General Chief complaint: ENT Stated complaint: Nose Bleed Time Seen by Provider: 10/15/23 10:50 Source: patient, RN notes reviewed Mode of arrival: ambulatory Limitations: no limitations - History of Present Illness Initial comments: 68-year-old female presents emergency department with a nose bleed. Patient underwent nose surgery and cauterization last . Patient states that experiencing epistaxis from her right naris, that subsided and eventually stopped. At 2300 yesterday patient states that the bleeding markedly increased resulting in her finger bright red blood and clots. Patient states that this morning she is been experiencing headaches, lightheadedness. Patient denies syncope. She was advised by her ENT to be evaluated for nasal packing. Patient has follow-up appointment this afternoon with ENT - Related Data Home Medications Medication Instructions Recorded Confirmed Omeprazole 20 mg PO DAILY 10/28/18 10/15/23 Atorvastatin [Lipitor] 40 mg PO DAILY@1300 09/27/20 10/15/23 Aspirin 81 mg PO DAILY@1300 01/13/23 10/15/23 Cranberry Fruit Extract [Cranberry] 500 mg PO DAILY@1300 01/13/23 10/15/23 Cyanocobalamin (Vitamin B-12) 1,000 mcg PO DAILY@1300 01/13/23 10/15/23 [Vitamin B-12] Losartan [Cozaar] 25 mg PO BID 01/13/23 10/15/23 Solifenacin Succinate [Vesicare] 10 mg PO DAILY@1300 01/13/23 10/15/23 Rivaroxaban [Xarelto] 15 mg PO HS 10/07/23 10/15/23 Amoxic-Pot Clav 875-125Mg 1 tab PO Q12H 10/15/23 10/15/23 [Augmentin 875-125] Calcium Carbonate [Calcium] 1,200 mg PO DAILY 10/15/23 10/15/23 Chlorhexidine Gluconate [Peridex] 15 ml PO BID 10/15/23 10/15/23 Cholecalciferol [Vitamin D3 (25 25 mcg PO DAILY 10/15/23 10/15/23 Mcg = 1000 Iu)] Fluoride (Sodium) [Sodium Fluoride 1 applic DENTAL DAILY 10/15/23 10/15/23 5000 Plus] Sennosides [Senokot] 8.6 mg PO HS 10/15/23 10/15/23 polyethylene glycoL 3350 [Miralax] 17 gm PO DAILY 10/15/23 10/15/23 Previous Rx's Medication Instructions Recorded Metoprolol Succinate [Metoprolol 25 mg PO DAILY #90 tab 01/15/23 Succinate ER] Allergies Allergy/AdvReac Type Severity Reaction Status Date / Time morphine AdvReac Hallucinati Verified 10/15/23 12:03 ons Review of Systems ROS Statement: Those systems with pertinent positive or pertinent negative responses have been documented in the HPI. ROS Other: All systems not noted in ROS Statement are negative. Past Medical History Past Medical History: Atrial Fibrillation, Hyperlipidemia, Hypertension, Osteoarthritis (OA), Sleep Apnea/CPAP/BIPAP Additional Past Medical History / Comment(s): HX of Pancreatitis History of Any Multi-Drug Resistant Organisms: None Reported Past Surgical History: Cholecystectomy, Tonsillectomy, Tubal Ligation Additional Past Surgical History / Comment(s): Dev. Septum repair, sadi. cataracts rem. Past Anesthesia/Blood Transfusion Reactions: Motion Sickness Additional Past Anesthesia/Blood Transfusion Reaction / Comment(s): was told she was diff. intubation with last surgery(dev. septum) but states she has never typically had a problem Past Psychological History: No Psychological Hx Reported Smoking Status: Former smoker Past Alcohol Use History: None Reported Past Drug Use History: None Reported - Past Family History Father Family Medical History: Cancer General Exam Limitations: no limitations General appearance: alert, in distress (acute distress) Head exam: Present: atraumatic, normocephalic, normal inspection Eye exam: Present: normal appearance, PERRL, EOMI. Absent: scleral icterus, conjunctival injection, periorbital swelling ENT exam: Present: other (epistaxis dominantly in right naris. Unable to visualize anterior posterior bleed.) Neck exam: Present: normal inspection. Absent: tenderness, meningismus, lymphadenopathy Respiratory exam: Present: normal lung sounds bilaterally. Absent: respiratory distress, wheezes, rales, rhonchi, stridor Cardiovascular Exam: Present: regular rate, normal rhythm, normal heart sounds. Absent: systolic murmur, diastolic murmur, rubs, gallop, clicks GI/Abdominal exam: Present: soft, normal bowel sounds. Absent: distended, tenderness, guarding, rebound, rigid Extremities exam: Present: normal inspection, full ROM, normal capillary refill. Absent: tenderness, pedal edema, joint swelling, calf tenderness Back exam: Present: normal inspection Neurological exam: Present: alert, oriented X3, CN II-XII intact Psychiatric exam: Present: normal affect, normal mood Skin exam: Present: warm, dry, intact, normal color. Absent: rash Course Vital Signs 10/15/23 10/15/23 10:43 12:25 Temperature 98.3 F 98 F Pulse Rate 83 72 Respiratory 20 18 Rate Blood Pressure 146/85 153/86 O2 Sat by Pulse 99 99 Oximetry Procedures - Procedures Initial comment: posterior nasal packing completed with rapid rhino. Preparation with sterile water pilot instructor balloon inflated after placement. Patient tolerated procedure well. Medical Decision Making - Medical Decision Making Was pt. sent in by a medical professional or institution (KRISTY Brannon, LABORER OPERATOR, urgent care, hospital, or [place] health care facility...) When possible be specific @ -No Did you speak to anyone other than the patient for history (EMS, parent, family, police, friend...)? What history was obtained from this source @ -No Did you review nursing and triage notes (agree or disagree)? Why? @ -I reviewed and agree with nursing and triage notes Were old charts reviewed (outside hosp., previous admission, EMS record, old EKG, old radiological studies, urgent care reports/EKG's, [place] health care facility records)? Report findings @ -No old charts were reviewed Differential Diagnosis (chest pain, altered mental status, abdominal pain women, abdominal pain men, vaginal bleeding, weakness, fever, dyspnea, syncope, headache, dizziness, GI bleed, back pain, seizure, CVA, palpatations, mental health, musculoskeletal)? @ -anterior epistaxis, posterior epistaxis EKG interpreted by me (3pts min.). @ -none X-rays interpreted by me (1pt min.). @ -None done CT interpreted by me (1pt min.). @ -None done U/S interpreted by me (1pt. min.). @ -None done What testing was considered but not performed or refused? (CT, X-rays, U/S, labs)? Why? @ -None What meds were considered but not given or refused? Why? @ -None Did you discuss the management of the patient with other professionals (professionals i.e. KRISTY Brannon, LABORER OPERATOR, lab, RT, psych nurse, social science research assistant, inventory transcriber, teacher, chief lifestyle officer, retail area manager)? Give summary @ -No Was smoking cessation discussed for >3mins.? @ -No Was critical care preformed (if so, how long)? @ -No Were there social determinants of health that impacted care today? How? (Homelessness, low income, unemployed, alcoholism, drug addiction, transportati on, low edu. Level, literacy, decrease access to med. care, alf, rehab)? @ -No Was there de-escalation of care discussed even if they declined (Discuss DNR or withdrawal of care, Hospice)? DNR status @ -No What co-morbidities impacted this encounter? (DM, HTN, Smoking, COPD, CAD, Cancer, CVA, ARF, Chemo, Hep., AIDS, mental health diagnosis, sleep apnea, morbid obesity)? @ -None Was patient admitted / discharged? Hospital course, mention meds given and route, prescriptions, significant lab abnormalities, going to OR and other pertinent info. @ -Discharged. 68-year-old female presents with chief complaint of epistaxis. Given liter bolus and symptoms of headache and lightheadedness have improved. CBC no acute signs of blood loss anemia, CMP unremarkable. Initially, packing was attempted which patient did not tolerate. Phenylephrine nasal spray ordered to administer into right naris which had active bleeding. Patient continued to experience epistaxis after administration and clamping from 30 minutes. Second attempt at nasal packing successful with Rapid rhino. Discussed case with at tending physician, Dr. Taylor, and is comfortable with discharge. Continue taking prescribed antibiotic ENT from previous surgery last . keep nasal packing in place for 3 days. Undiagnosed new problem with uncertain prognosis? @ -No Drug Therapy requiring intensive monitoring for toxicity (Heparin, Nitro, Insulin, Cardizem)? @ -No Were any procedures done? @ -Rapid rhino placement Diagnosis/symptom? @ -Epistaxis Acute, or Chronic, or Acute on Chronic? @ -Acute Uncomplicated (without systemic symptoms) or Complicated (systemic symptoms)? @ -Uncomplicated Side effects of treatment? @ -No Exacerbation, Progression, or Severe Exacerbation? @ -No Poses a threat to life or bodily function? How? (Chest pain, USA, NC, pneumonia, PE, COPD, DKA, ARF, appy, cholecystitis, CVA, Diverticulitis, Homicidal, Suicidal, threat to staff... and all critical care pts) @ -No - Lab Data Result diagrams: 10/15/23 11:10 10/15/23 11:10 Lab Results 10/15/23 10/15/23 10/15/23 Range/Units 11:10 11:10 11:10 WBC 10.6 (3.8-10.6) k/uL RBC 4.51 (3.80-5.40) m/uL Hgb 13.6 (11.4-16.0) gm/dL Hct 40.1 (34.0-46.0) % MCV 89.0 (80.0-100.0) fL MCH 30.2 (25.0-35.0) pg MCHC 33.9 (31.0-37.0) g/dL RDW 12.8 (11.5-15.5) % Plt Count 152 (150-450) k/uL MPV 9.9 PT 13.7 H (10.0-12.5) sec INR 1.3 H (<1.2) Sodium 139 (137-145) mmol/L Potassium 3.6 (3.5-5.1) mmol/L Chloride 109 H (98-107) mmol/L Carbon Dioxide 22 (22-30) mmol/L Anion Gap 8 mmol/L BUN 21 H (7-17) mg/dL Creatinine 0.85 (0.52-1.04) mg/dL Est GFR (CKD-EPI)AfAm 82 (>60 ml/min/1.73 sqM) Est GFR (CKD-EPI)NonAf 71 (>60 ml/min/1.73 sqM) Glucose 165 H (74-99) mg/dL Calcium 8.8 (8.4-10.2) mg/dL Total Bilirubin 1.2 (0.2-1.3) mg/dL AST 45 H (14-36) U/L ALT 69 H (4-34) U/L Alkaline Phosphatase 105 (38-126) U/L Total Protein 6.7 (6.3-8.2) g/dL Albumin 3.7 (3.5-5.0) g/dL Disposition Clinical Impression: Epistaxis Narrative: Please return to the Emergency Department if symptoms worsen or any other concerns. Keep nasal packing in place for the next 3 days and follow up with ENT. Continue prescription of antibiotics. Disposition: HOME SELF-CARE Condition: Good Instructions (If sedation given, give patient instructions): Nosebleed (ED) Is patient prescribed a controlled substance at d/c from ED?: No Referrals: Salvador Vo MD [Primary Care Provider] - 1-2 days Time of Disposition: 12:50
[2023-10-15] MEDS: SODIUM CHLORIDE 0.9% 1,000 ML IV STA (11:11)
[2023-10-15] MEDS: PHENYLEPHRINE 0.25% NASAL SPRA 1 SPRAY/ML NASAL STA (11:27)
[2023-10-15 11:32] LABS: HCT 40.1 % (34.0-46.0); HGB 13.6 gm/dL (11.4-16.0); MCH 30.2 pg (25.0-35.0); MCHC 33.9 g/dL (31.0-37.0); Mean Platelet Volume 9.9; Platelet Count 152 k/uL (150-450); RBC 4.51 m/uL (3.80-5.40); RDW 12.8 % (11.5-15.5); WBC 10.6 k/uL (3.8-10.6)
[2023-10-15 11:39] LABS: INR 1.3 (<1.2); Prothrombin Time 13.7 sec (10.0-12.5)
[2023-10-15 12:33] LABS: ALT 69 U/L (4-34); AST 45 U/L (14-36); African American GFR (CKD) 82 (>60 ml/min/1.73 sqM); Albumin 3.7 g/dL (3.5-5.0); Alkaline Phosphatase 105 U/L (38-126); Anion Gap 8 mmol/L; Blood Urea Nitrogen 21 mg/dL (7-17); Calcium 8.8 mg/dL (8.4-10.2); Carbon Dioxide 22 mmol/L (22-30); Chloride 109 mmol/L (98-107); Glucose 165 mg/dL (74-99); Non-African American GFR(CKD) 71 (>60 ml/min/1.73 sqM); Potassium 3.6 mmol/L (3.5-5.1); Sodium 139 mmol/L (137-145); Total Bilirubin 1.2 mg/dL (0.2-1.3); Total Protein 6.7 g/dL (6.3-8.2)
[2023-10-15 12:54] VITALS: RESP 18
[2023-10-15 14:03] VITALS: BP 139/76; PULSE 74; TEMP 98.1
== END 2023-10-15 13:37 | disposition home or self-care (01) ==
LOC: EC 10:38
DX: R04.0 Epistaxis (principal); I10 Essential (primary) hypertension; I48.91 Unspecified atrial fibrillation; E78.5 Hyperlipidemia, unspecified; G47.30 Sleep apnea, unspecified; M19.90 Unspecified osteoarthritis, unspecified site; Z87.891 Personal history of nicotine dependence; Z79.82 Long term (current) use of aspirin; Z79.899 Other long term (current) drug therapy; Z88.5 Allergy status to narcotic agent; Z90.49 Acquired absence of other specified parts of digestive tract
CPT/HCPCS: 30903; 36415; 80053; 85027; 85610; 96360; 99283

== ENCOUNTER 2023-10-30 09:36 | Day surgery (SDC) | payer MEDICARE ==
[2023-10-22 09:08] VITALS: BMI 29.6
[2023-10-30] MEDS: SODIUM CHLORIDE 0.9% 500 ML 500 ML IV ONE (10:07)
[2023-10-30 10:22] VITALS: RESP 18; TEMP 97.8
[2023-10-30] MEDS ORDERED: fentaNYL (PF) 50 MCG/ML 2 ML AMP ONE (10:28)
[2023-10-30] MEDS: fentaNYL (PF) 50 MCG/ML 2 ML AMP IVP ONE (10:48)
[2023-10-30] MEDS: BENZOCAINE SPRAY 1 CAN MUCOUS MEM ONE (10:48)
[2023-10-30] MEDS: MIDAZOLAM 2 MG/2 ML VIAL IVP ONE (10:48)
--- NOTE | 2023-10-30 12:14 | P.TEE ---
Date of Procedure: 10/30/23 Description of Procedure(s): Procedure performed: 1. Transesophageal Echocardiogram with color flow doppler, pulsed wave doppler and continuous wave doppler 2. Moderate conscious sedation. Sedation time [20] mins. Indications: Evaluation of left atrial appendage after atrial clip ligation to see if patient needs systemic anticoagulation for stroke prevention in setting of atrial fibrillation Consent: I have discussed the risks, benefits and alternative therapies for the above-mentioned procedure. The patient has indicated understanding and acceptance of the risks of the procedure. Signed consent was obtained and was placed in the paper chart. Procedural Steps: Timeout was performed in usual fashion. Patient's heart rate, blood pressure, oxygen saturation and ECG were monitored. Benzocaine was sprayed liberally in the back of the throat. Bite block was placed between the jaw. 4 mg of Versed and 75 mcg of Fentanyl were administered intravenously. After achieving appropriate moderate conscious sedation, RAND probe was advanced without difficulty and without any immediate complications to the esophagus. RAND study was performed with color flow doppler, pulsed wave doppler and continuous wave doppler. The probe was then removed. Patient tolerated the procedure well. Patient was transferred to the post procedure area in stable and satisfactory condition. Throughout the procedure patient's heart rate, blood pressure, oxygen saturation and ECG were monitored. Total sedation time [20] mins. Complications: none FINDINGS Left Atrium: Moderate LA dilatation. No evidence of mass or thrombus seen. S/D ratio less than 1 in pulmonic vein and E/A ratio more than 2 in mitral inflow suggesting elevated LA pressures and diastolic dysfunction Left Atrial Appendage: Left atrial appendage is nicely excluded after the atrial clip ligation. There is no evidence of any residual lobes. There is no evidence of significant flow in the left atrial appendage. Inter atrial septum: Intact inter-atrial septum with no evidence of atrial septal defect or patent foramen ovale. Mild lipomatous changes Left Ventricle: Normal global LV size and systolic function Right Atrium: Normal overall RA size Right Ventricle: Normal global RV size and systolic function Aortic Valve: Trileaflet, mild calcification of left coronary cusp. No significant stenosis or regurgitation on color doppler assessment. Mitral Valve: Struturally normal. Mild mitral regurgitation. Pulmonic Valve: No significant stenosis or regurgitation Tricuspid Valve: Mild tricuspid regurgitation. RVSP estimated around 36 mmHg Ascending aorta, Aortic root and Aortic arch: Normal size aortic root and ascending aorta. Ascending aorta measured at 3.5 cm. Mild intimal thickening. Descending aorta: Mild intimal thickening. CONCLUSION: Appropriately excluded left atrial appendage with atrial clip ligation with no evidence of residual lobes or significant flow in left atrial appendage No evidence of left atrial thrombus Moderate left atrial dilatation Elevated LA pressures based on pulmonic vein flow and mitral inflow Mild MR Findings were communicated to the primary cardiology team. Findings were discussed with the patient's at the bedside Wayne Novak MD, RPVI, FACC Thank you for allowing [facility] to participate in this patient's care. Feel free to reach out in case of any followup questions.
[2023-10-30 12:52] VITALS: BP 158/78; PULSE 72
== END 2023-10-30 12:24 | disposition home or self-care (01) ==
LOC: CATHCVL 09:36
PROVIDERS: ATTEND Student in an Organized Health Care Education/Training Program
DX: I48.20 Chronic atrial fibrillation, unspecified (principal); I34.0 Nonrheumatic mitral (valve) insufficiency; I25.10 Atherosclerotic heart disease of native coronary artery without angina pectoris; Z95.1 Presence of aortocoronary bypass graft; I10 Essential (primary) hypertension; I49.5 Sick sinus syndrome; F17.210 Nicotine dependence, cigarettes, uncomplicated; Z88.5 Allergy status to narcotic agent; Z79.01 Long term (current) use of anticoagulants; Z79.82 Long term (current) use of aspirin; Z79.899 Other long term (current) drug therapy
CPT/HCPCS: 93312; 93320; 93325; 99152; J2250; J3010

== ENCOUNTER → 2024-01-01 | Outpatient (CLI) | payer MEDICARE ==
--- NOTE | 2024-01-04 09:15 | MM ---
Reason for Exam: Screening (asymptomatic). Last mammogram was performed 1 year(s) and 4 month(s) ago. Patient History: Menarche at age 11. First Full-Term at age 22. Postmenopausal. Patient has history of breast feeding. Estrogen for 3 months until age 58. Progesterone for 3 months until age 58. Risk Values: Susan 5 year model risk: 1.7%. NCI Lifetime model risk: 5.7%. Prior Study Comparison: 08/30/2021 Bilateral Screening Mammogram, [facility]. 09/01/2022 Bilateral MG 3D screening mammo w/cad, [facility]. 09/03/2022 Left MG 3D work up w/cad LT, [facility]. Tissue Density: There are scattered areas of fibroglandular density. Findings: Analyzed By CAD. There is no suspicious group of microcalcifications or new suspicious mass in either breast. Overall Assessment: Negative, BI-RAD 1 Management: Screening Mammogram of both breasts in 1 year. . Patient should continue monthly self-breast exams. A clinical breast exam by your physician is recommended on an annual basis. This exam should not preclude additional follow-up of suspicious palpable abnormalities. Note on Susan scores and lifetime risk: 1. A Susan score greater than 3% is considered moderate risk. If this is the case, consider specialist referral to assess eligibility for a risk reducing agent. 2. If overall lifetime risk for the development of breast cancer is 20% or higher, the patient may qualify for future screening with alternating mammogram and breast MRI. Electronically signed and approved by: Jocelyn Ames M.D. Radiologist
== END | disposition home or self-care (01) ==
LOC: RADMAMWWP 06:55
PROVIDERS: ATTEND Family Medicine
DX: Z12.31 Encounter for screening mammogram for malignant neoplasm of breast (principal); Z78.0 Asymptomatic menopausal state
CPT/HCPCS: 77067

== ENCOUNTER → 2024-01-06 | Outpatient (CLI) | payer MEDICARE ==
[2024-01-06 16:33] LABS: Basophils # (A) 0.05 X 10*3/uL (0.00-0.10); Basophils % (A) 0.8 %; Eosinophils # (A) 0.17 X 10*3/uL (0.04-0.35); Eosinophils % (A) 2.9 %; HCT 39.2 % (37.2-46.3); HGB 12.2 g/dL (12.0-15.0); Lymphocytes # (A) 2.26 X 10*3/uL (0.90-5.00); Lymphocytes % (A) 38.2 %; MCH 27.1 pg (27.0-32.0); MCHC 31.1 g/dL (32.0-37.0); MCV 87.1 FL (80.0-97.0); Mean Platelet Volume 14.1 FL (9.5-12.2); Monocytes # (A) 0.52 X 10*3/uL (0.20-1.00); Monocytes % (A) 8.8 %; NRBC Per 100 WBC 0 X 10*3/uL (0.00-0.01); Neutrophils # (A) 2.91 X 10*3/uL (1.80-7.70); Neutrophils % (A) 49.1 %; Platelet Count 139 X 10*3/uL (140-440); RDW 12.9 % (11.5-14.5); WBC 5.92 X 10*3/uL (4.50-10.00)
[2024-01-06 17:27] LABS: % Iron Saturation 19.02 (12.00-45.00); ALT 79 U/L (8-44); AST 88 U/L (13-35); Blood Urea Nitrogen 12.9 mg/dL (9.0-27.0); Iron 85 UG/DL (50-170); T4, Free (Free Thyroxine) 0.99 ng/dL (0.80-1.80); Total Iron Binding Capacity 447 UG/DL (228-460)
== END | disposition home or self-care (01) ==
LOC: LABWHC1 10:04
PROVIDERS: ATTEND Dermatology MOHS-Micrographic Surgery
DX: L65.9 Nonscarring hair loss, unspecified (principal)
CPT/HCPCS: 36415; 82565; 83540; 83550; 84439; 84443; 84450; 84460; 84520; 85025

== ENCOUNTER → 2024-05-10 | Outpatient (CLI) | payer MEDICARE ==
--- NOTE | 2024-05-10 12:37 | XR ---
EXAMINATION TYPE: XR chest 2V DATE OF EXAM: 05/10/2024 COMPARISON: 11/14/2020 HISTORY: 68-year-old female R06.00, dyspnea TECHNIQUE: Frontal and lateral views FINDINGS: Median sternotomy wires and post-CABG clips. Heart normal size. Aorta and pulmonary vasculature withi n normal limits. No consolidation or pleural effusion. IMPRESSION: Post CABG changes. No acute process seen. [facility], , 05/10/2024 12:35 PM
== END | disposition home or self-care (01) ==
LOC: RADXRMAIN 11:45
PROVIDERS: ATTEND Family Medicine
DX: R06.00 Dyspnea, unspecified
CPT/HCPCS: 71046

== ENCOUNTER → 2024-05-18 | Outpatient (CLI) | payer MEDICARE ==
[2024-05-18 11:13] LABS: Basophils % (A) 1 %; Eosinophils # (A) 0.2 k/uL (0-0.7); Eosinophils % (A) 2 %; HCT 43.8 % (34.0-46.0); HGB 14.2 gm/dL (11.4-16.0); Lymphocytes # (A) 1.9 k/uL (1.0-4.8); Lymphocytes % (A) 29 %; MCH 28.8 pg (25.0-35.0); MCHC 32.3 g/dL (31.0-37.0); Mean Platelet Volume 9.5; Monocytes # (A) 0.4 k/uL (0-1.0); Monocytes % (A) 6 %; Neutrophils # (A) 3.8 k/uL (1.3-7.7); Neutrophils % (A) 59 %; Platelet Count 149 k/uL (150-450); RBC 4.92 m/uL (3.80-5.40); RDW 14.3 % (11.5-15.5); WBC 6.4 k/uL (3.8-10.6)
[2024-05-18 11:37] LABS: ALT 54 U/L (4-34); AST 60 U/L (14-36); African American GFR (CKD) 74 (>60 ml/min/1.73 sqM); Albumin 4.1 g/dL (3.5-5.0); Albumin/Globulin Ratio 1.3; Alkaline Phosphatase 95 U/L (38-126); Anion Gap 7 mmol/L; Blood Urea Nitrogen 16 mg/dL (7-17); Calcium 9.4 mg/dL (8.4-10.2); Carbon Dioxide 28 mmol/L (22-30); Chloride 105 mmol/L (98-107); Globulin 3.2 g/dL; Glucose 128 mg/dL (74-99); Non-African American GFR(CKD) 64 (>60 ml/min/1.73 sqM); Potassium 4.3 mmol/L (3.5-5.1); Sodium 140 mmol/L (137-145); Total Bilirubin 1.4 mg/dL (0.2-1.3); Total Protein 7.3 g/dL (6.3-8.2)
--- NOTE | 2024-05-18 13:33 | CT ---
EXAMINATION TYPE: CT angio chest CT DLP: 340.80 mGycm, Automated exposure control for dose reduction was used. DATE OF EXAM: 05/18/2024 11:55 AM COMPARISON: Chest radiograph 05/10/2024 CLINICAL INDICATION:Female, 68 years old with history of R06.00 DYSPNEA, UNSPECIFIED; SOB X1 MONTH. TECHNIQUE/CONTRAST: CTA scan of the thorax is performed with IV Contrast, patient injected with 65 ML mL of Isovue 370, p ulmonary embolism protocol. MIP images are created and reviewed. FINDINGS: Pulmonary Artery: There is no evidence for a filling defect within the pulmonary vasculature to sugge st acute pulmonary embolism. The pulmonary artery is of normal size. Reflux of contrast into the IVC . Lungs/Pleura: No evidence of focal consolidation, pleural effusion or pneumothorax. Airway: Large airways are patent. Heart: The heart is mildly enlarged for size.. Post-CABG changes. No pericardial effusion. Vasculature: No evidence of aortic aneurysm. Mediastinum: No evidence of adenopathy. Musculoskeletal: No acute osseous abnormalities. Median sternotomy wires. Soft Tissues: Unremarkable. Lower neck: Macrocalcification within the left thyroid lobe.. Upper Abdomen: Gallbladder is surgical absent. Nodular contour to the liver with widened fissures and posterior notch sign. IMPRESSION: 1. No evidence of pulmonary embolism or acute thoracic process. 2. Hepatic cirrhosis. 3. Cardiomegaly with post-CABG changes. [facility], , 05/18/2024 1:31 PM
== END ==
LOC: RADCTMAIN 10:18
PROVIDERS: ATTEND Family Medicine
CPT/HCPCS: 36415; 71275; 80053; 83036; 84443; 84481; 85025

== ENCOUNTER → 2024-07-05 | Outpatient (CLI) | payer MEDICARE | LOC: CPPFTMAIN 11:10 | PROVIDERS: ATTEND Family Medicine | DX: R06.00 Dyspnea, unspecified (principal); Z88.5 Allergy status to narcotic agent; F17.210 Nicotine dependence, cigarettes, uncomplicated | CPT/HCPCS: 94060; 94726; 94729 ==

== ENCOUNTER → 2025-02-10 | Outpatient (CLI) | payer MEDICARE ==
--- NOTE | 2025-02-10 07:40 | MM ---
Reason for Exam: Screening (asymptomatic). Last mammogram was performed 1 year(s) and 2 month(s) ago. Patient History: Menarche at age 11. First Full-Term at age 22. Postmenopausal. Patient has history of breast feeding. Estrogen for 3 months until age 58. Progesterone for 3 months until age 58. Risk Values: Susan 5 year model risk: 1.7%. NCI Lifetime model risk: 5.5%. Prior Study Comparison: 09/01/2022 Bilateral MG 3D screening mammo w/cad, [facility]. 09/03/2022 Left MG 3D work up w/cad , [facility]. 01/01/2024 Bilateral MG screening mammo w CAD, [facility]. Tissue Density: There are scattered areas of fibroglandular density. Findings: Analyzed By CAD. There are a few tiny benign-appearing round calcifications bilaterally redemonstrated. There is no suspicious group of microcalcifications or new suspicious mass in either breast. Overall Assessment: Benign, BI-RAD 2 Management: Screening Mammogram of both breasts in 1 year. . Patient should continue monthly self-breast exams. A clinical breast exam by your physician is recommended on an annual basis. This exam should not preclude additional follow-up of suspicious palpable abnormalities. Note on Susan scores and lifetime risk: 1. A Susan score greater than 3% is considered moderate risk. If this is the case, consider specialist referral to assess eligibility for a risk reducing agent. 2. If overall lifetime risk for the development of breast cancer is 20% or higher, the patient may qualify for future screening with alternating mammogram and breast MRI. [facility], , 02/10/2025 7:37 AM. Electronically signed and approved by: Blayne Chin M.D.
== END | disposition home or self-care (01) ==
LOC: RADMAMWWP 06:58
PROVIDERS: ATTEND Family Medicine
DX: Z12.31 Encounter for screening mammogram for malignant neoplasm of breast (principal); R92.323 Mammographic fibroglandular density, bilateral breasts; R92.1 Mammographic calcification found on diagnostic imaging of breast; Z78.0 Asymptomatic menopausal state
CPT/HCPCS: 77063; 77067